=== PATIENT | female | born 1945 | race Hispanic/Latino ===

== ENCOUNTER 2016-08-24 11:02 | Day surgery (SDC) | payer MEDICARE ==
[2016-08-17 12:45] VITALS: BMI 32.9
[2016-08-24] MEDS ORDERED: Propofol 10 mg/ml Inj (20 ML) ONE (13:16)
[2016-08-24] MEDS ORDERED: Lidocaine 2% Inj (20ml) ONE (13:16)
[2016-08-24] MEDS ORDERED: Midazolam 2 MG/2 ML VIAL ONE (13:17)
[2016-08-24] MEDS ORDERED: Lactated Ringer's 1,000 ML IV SCH (13:51)
[2016-08-24 14:23] VITALS: RESP 18
[2016-08-24 14:39] VITALS: PULSE 70
[2016-08-24 15:14] VITALS: BP 113/60; TEMP 98.2; O2SAT 97
== END 2016-08-24 16:00 | disposition home or self-care (01) ==
LOC: ENDO 11:02
PROVIDERS: ATTEND Internal Medicine Gastroenterology
DX: K51.90 Ulcerative colitis, unspecified, without complications (principal); K62.1 Rectal polyp; K64.8 Other hemorrhoids; E11.9 Type 2 diabetes mellitus without complications
CPT/HCPCS: 45380; 45385; 82948; 88305; J2250; J2704; J3010; J7040; J7120

== ENCOUNTER 2016-09-29 16:43 | Emergency (ER) | payer MEDICARE ==
[2016-09-29 16:44] VITALS: BMI 32.9
[2016-09-29 17:32] VITALS: BP 134/71; PULSE 82; RESP 19; TEMP 99.1; O2SAT 96
--- NOTE | 2016-09-29 18:16 | ED PDOC ---
Arrival/HPI - General Chief Complaint: ENT Problem Time Seen by Provider: 09/29/16 17:55 Historian: Patient - History of Present Illness Narrative History of Present Illness (Text): 09/29/16 18:21 Patient with pmh of DM, CHF, gout and asthma, complains of R ear pain > 1 wk, sore throat, loss of voice and cough productive of green sputum for the past few days. Otherwise: (-) fever, (-) chills, (-) chest pain, (-) dyspnea, (-) hemoptysis, (-) upper back pain, (-) travel, (-) recent prolonged immobility. Past Medical History - Provider Review Nursing Documentation Reviewed: Yes - Infectious Disease Hx of Infectious Diseases: None - Reproductive Menopause: Yes - Cardiac Hx Pacemaker: No - Pulmonary Hx Asthma: Yes Hx Chronic Obstructive Pulmonary Disease (COPD): Yes Hx Emphysema: Yes Hx Sleep Apnea: Yes - Neurological Hx Paralysis: No - HEENT Hx Deafness: Yes (NERVE DEAFNESS- B/L EARS) - Renal Hx Kidney Stones: Yes Other/Comment: MULTIPLE CYSTS ON KIDNEYS - Endocrine/Metabolic Hx Diabetes Mellitus Type 2: Yes Other/Comment: DIABETIC RETINOPATHY, NEUROPATHY - Hematological/Oncological Hx Blood Transfusions: No Hx Blood Transfusion Reaction: No - Integumentary Other/Comment: SKIN CA - Musculoskeletal/Rheumatological Hx Musculoskeletal Disorders: Yes - Gastrointestinal Hx Colitis: Yes Hx Gastroesophageal Reflux: Yes - Genitourinary/Gynecological Other/Comment: SKIN CA - Psychiatric Hx Psychophysiologic Disorder: Yes Hx Anxiety: Yes Hx Depression: Yes Hx Emotional Abuse: No Hx Physical Abuse: No Hx Substance Use: No - Surgical History Hx Orthopedic Surgery: Yes (LEFT WRIST, RT SHOULDER) Other/Comment: SKIN BIOPSY - Anesthesia Hx Anesthesia: Yes Hx Anesthesia Reactions: No Hx Malignant Hyperthermia: No - Suicidal Assessment Feels Threatened In Home Enviroment: No Family/Social History - Physician Review Nursing Documentation Reviewed: Yes Family/Social History: No Known Family HX Smoking Status: Never Smoked Hx Alcohol Use: No Hx Substance Use: No Hx Substance Use Treatment: No Allergies/Home Meds Allergies/Adverse Reactions: Allergies bacitracin Allergy (Verified 09/29/16 17:32) REDNESS perfume Adverse Reaction (Verified 09/29/16 17:32) SHORTNESS OF BREATH Home Medications: Home Meds Medication Instructions Recorded Confirmed Albuterol HFA [Ventolin HFA 90 1 puff IH PRN PRN 02/06/12 09/29/16 mcg/actuation (8 g)] Esomeprazole Magnesium [Nexium] 40 mg PO QAM 02/06/12 09/29/16 Montelukast [Singulair] 10 mg PO HS 02/06/12 09/29/16 Tiotropium [Spiriva] 18 mcg IH QPM 02/06/12 09/29/16 Allopurinol [Zyloprim] 300 mg PO DAILY 06/01/16 09/29/16 Alprazolam [Xanax] 0.5 mg PO DAILY 06/01/16 09/29/16 Budesonide/Formoterol Fumarate 2 aer IH BID 06/01/16 09/29/16 [Symbicort 160-4.5 Mcg Inhaler] Ezetimibe [Zetia] 10 mg PO DAILY 06/01/16 09/29/16 Folic Acid 1 mg PO DAILY 06/01/16 09/29/16 Furosemide [Lasix] 20 mg PO DAILY 06/01/16 09/29/16 Gabapentin [Neurontin] 300 mg PO QID 06/01/16 09/29/16 Glipizide [Glipizide ER] 2.5 mg PO DAILY 06/01/16 09/29/16 Mesalamine [Pentasa] 2 tab PO QID 06/01/16 09/29/16 Methotrexate 12.5 mg PO QWK 06/01/16 09/29/16 Paroxetine HCl [Paxil] 20 mg PO BID 06/01/16 09/29/16 Potassium 10 20 meq PO BID 06/01/16 09/29/16 Quinapril [Accupril] 10 mg PO DAILY 06/01/16 09/29/16 buPROPion XL [Wellbutrin XL] 300 mg PO DAILY 06/01/16 09/29/16 Ergocalciferol (Vitamin D2) 50,000 unit PO QWK 08/17/16 09/29/16 [Vitamin D2] Review of Systems - Review of Systems Constitutional: Normal. absent: Fatigue, Weight Change, Fevers ENT: Normal, Hearing Changes, Sore Throat. absent: Rhinorrhea, Sinus Congestion Respiratory: Normal, Cough. absent: SOB, Sputum, Wheezing Cardiovascular: Normal. absent: Chest Pain, Palpitations, Edema Musculoskeletal: Normal. absent: Arthralgias, Back Pain, Neck Pain Skin: Normal. absent: Rash, Pruritis, Skin Lesions Physical Exam - Physical Exam Narrative Physical Exam (Text): 09/29/16 18:26 GENERAL APPEARANCE: Patient is awake, alert, oriented x 3, in no acute distress. SKIN: Warm, dry; (-) cyanosis. EYES: (-) conjunctival pallor. ENMT: Mucous membranes moist. Airway patent: (-) stridor. Ears: canals normal with (-) erythema, (-) d/c, TMs wnl. Pharynx: (-) swelling, (-) erythema, (-) exudate. NECK: (-) tenderness, (-) stiffness, (-) lymphadenopathy. CHEST AND RESPIRATORY: (-) rhonchi, (-) rales, (-) wheezes, (-) pleural rub; breath sounds equal bilaterally. HEART AND CARDIOVASCULAR: (-) irregularity; (-) murmur, (-) gallop. ABDOMEN AND GI: Soft; (-) tenderness. EXTREMITIES: (-) deformity; (-) edema. NEURO AND PSYCH: Mental status as above. Cranial nerves grossly intact; strength symmetric. Vital Signs Temp Pulse Resp BP Pulse Ox 09/29/16 17:27 99.1 F 82 19 134/71 96 Medical Decision Making ED Course and Treatment: 09/29/16 18:27 Patient with pmh of DM, CHF, gout and asthma, complains of R ear pain > 1 wk, sore throat, loss of voice and cough productive of green sputum for the past few days. Based on history and exam, likely viral illness, consider laryngitis and bronchitis. Rx for zpak and tobramycin eye drops sent to pt's pharmacy. Advised to drink plenty of fluids, rest her voice. Pt states that she has a f/u with her ENT doctor in 2 days for re-evaluation. Also instructed to follow up with primary care physician in 1-2 days without fail. Advised to take medication as prescribed. Return to the emergency room at any time for any new or worsening symptoms. Patient states she fully agrees with and understands discharge instructions. States that she agrees with the plan and disposition. Verbalized and repeated discharge instructions and plan. I have given the patient opportunity to ask any additional questions. - PA / ABATTOIR MANAGER / Resident Statement MD/DO has reviewed & agrees with the documentation as recorded. Disposition/Present on Arrival - Present on Arrival Any Indicators Present on Arrival: No History of DVT/PE: No History of Uncontrolled Diabetes: No Urinary Catheter: No History of Decub. Ulcer: No History Surgical Site Infection Following: None - Disposition Have Diagnosis and Disposition been Completed?: Yes Diagnosis: Laryngitis, Bronchitis Disposition: HOME/ ROUTINE Disposition Time: 18:13 Patient Plan: Discharge Patient Problems: Current Active Problems Problem Status Onset Laryngitis Acute Bronchitis Acute Condition: GOOD Discharge Instructions (ExitCare): Laryngitis (ED), Acute Bronchitis (ED) Print Language: PASHTO Additional Instructions: Thank you for letting us take care of you today. You were treated for laryngitis , bronchitis. The emergency medical care you received today was directed at your acute symptoms. If you were prescribed any medication, please fill it and take as directed. It may take several days for your symptoms to resolve. Return to the Emergency Department if your symptoms worsen, do not improve, or if you have any other problems. Please contact your primary care doctor and your ENT doctor in 2 days for re- evaluation and follow up. Bring any paperwork you were given at discharge with you along with any medications you are taking to your follow up visit. Our treatment cannot replace ongoing medical care by a primary care provider (PCP) outside of the emergency department. Thank you for allowing the [facility] team to be part of your care today. Prescriptions: Azithromycin [Z-Raulito] 250 mg PO DAILY #6 tab Tobramycin 0.3% [Tobrex 0.3% Ophth Soln] 5 drop OS QID #1 bottle Referrals: Aureliano Johnson MD [Primary Care Provider] - Follow up with primary
== END 2016-09-29 18:20 | disposition home or self-care (01) ==
LOC: ED 16:43
DX: J04.0 Acute laryngitis (principal); J40 Bronchitis, not specified as acute or chronic; E11.9 Type 2 diabetes mellitus without complications

== ENCOUNTER 2016-12-16 23:28 | Inpatient (IN) | payer MEDICARE ==
--- NOTE | 2016-12-16 23:41 | EDPD ---
HPI Stroke - General Time Seen by Provider: 12/16/16 23:35 Historian: Patient, Family (Sister) - History of Present Illness Narrative History of Present Illness (Free Text): 12/16/16 23:36 Lorelei Patton is a 71 year old female, whose past medical history includes CVA, hypertension, Type 2 diabetes, COPD, sleep apnea, and diabetic neuropathy, who presents to the ED accompanied by sister complaining of weakness and confusion. Sister states patient called her tonight and noted patient was confused with expressive aphasia at times. Sister also reports patient has a right facial droop. Patient reports she has been feeling confused with associated weakness for the past couple of days but sister notes patient lives alone. Patient is alert and oriented to person and place. Patient denies any chest pain, shortness of breath, dizziness, nausea, vomiting, back pain, neck pain, or any other complaints. Date:: 12/16/16 Time: 23:36 Onset:: Days Timing: Currently Symptomatic Context: Home Associated Symptoms: Dysphagia (Expressive aphasia) Exacerbated by: Nothing Relieved by: Nothing - Location Location: Mental Status, Speech Locate Right: Face rTPA Inclusion/Exclusion - Refusal of Treatment Patient Refused Treatment: No - Inclusion Criteria for Altepase Patient is 18 years or Older: Yes The Clinical Diagnosis of Ischemic Stroke That is Causing a Potentially Disabling Neurological Deficit: Yes Time of Onset is Well Established to be Less Than 270 Minute Before Treatment Would Begin: No Risk/Benefit Discussed With Patient/Family Member Present: Yes - Exclusion Criteria for Altepase Uncontrolled Hypertension at Time of Treatment (Systolic BP above 185 or Diastolic BP above 110 mmHg): No Active Internal Bleeding: No Known Bleeding Diathesis Including but Not Limited to: Platelets Below 100,000/ mm,PTT Above 40 sec After Heparin Use, Current Use of Oral Anitcoagulant With INR Greater Than 1.7 or PT Greater Than 15 secs: No Evidence of an Intracranial Hemorrhage: No Evidence of Major Acute Infarct With Signs Greater Than 1/3 MCA Territory: No Suspicion of Subarachnoid Hemorrhage on Pretreatment Evaluation Even if CT Head Negative For Hemorrhage: No - Warning to TPA With Conditions Following Conditions Weighed Against Anticipated Benefit: No Past Medical History - Provider Review Nursing Documentation Reviewed: Yes - Infectious Disease Hx of Infectious Diseases: None - Cardiac Hx Pacemaker: No - Pulmonary Hx Chronic Obstructive Pulmonary Disease (COPD): Yes Hx Pneumonia: Yes - Neurological Hx Paralysis: No - HEENT Hx Deafness: Yes (NERVE DEAFNESS- B/L EARS) - Renal Hx Kidney Stones: Yes Other/Comment: MULTIPLE CYSTS ON KIDNEYS - Endocrine/Metabolic Hx Diabetes Mellitus Type 2: Yes Other/Comment: DIABETIC RETINOPATHY, NEUROPATHY - Hematological/Oncological Hx Blood Transfusions: No Hx Blood Transfusion Reaction: No - Integumentary Other/Comment: SKIN CA - Musculoskeletal/Rheumatological Hx Musculoskeletal Disorders: Yes - Gastrointestinal Hx Gastroesophageal Reflux: Yes - Genitourinary/Gynecological Other/Comment: SKIN CA - Psychiatric Hx Psychophysiologic Disorder: Yes Hx Anxiety: Yes Hx Depression: Yes Hx Emotional Abuse: No Hx Physical Abuse: No Hx Substance Use: No - Surgical History Hx Orthopedic Surgery: Yes (LEFT WRIST, RT SHOULDER) Other/Comment: SKIN BIOPSY - Anesthesia Hx Anesthesia: Yes Hx Anesthesia Reactions: No Hx Malignant Hyperthermia: No - Suicidal Assessment Feels Threatened In Home Enviroment: No Family/Social History - Family/Social History Family History: Non-Contributory - Review Nursing documentation reviewed.: Yes Allergies/Home Meds Allergies/Adverse Reactions: Allergies bacitracin Allergy (Verified 12/16/16 23:42) REDNESS perfume Adverse Reaction (Verified 12/16/16 23:42) SHORTNESS OF BREATH Home Medications: Home Meds Medication Instructions Recorded Confirmed Albuterol HFA [Ventolin HFA 90 1 puff IH PRN PRN 02/06/12 09/29/16 mcg/actuation (8 g)] Esomeprazole Magnesium [Nexium] 40 mg PO QAM 02/06/12 09/29/16 Montelukast [Singulair] 10 mg PO HS 02/06/12 09/29/16 Tiotropium [Spiriva] 18 mcg IH QPM 02/06/12 09/29/16 Allopurinol [Zyloprim] 300 mg PO DAILY 06/01/16 09/29/16 Alprazolam [Xanax] 0.5 mg PO DAILY 06/01/16 09/29/16 Budesonide/Formoterol Fumarate 2 aer IH BID 06/01/16 09/29/16 [Symbicort 160-4.5 Mcg Inhaler] Ezetimibe [Zetia] 10 mg PO DAILY 06/01/16 09/29/16 Folic Acid 1 mg PO DAILY 06/01/16 09/29/16 Furosemide [Lasix] 20 mg PO DAILY 06/01/16 09/29/16 Gabapentin [Neurontin] 300 mg PO QID 06/01/16 09/29/16 Glipizide [Glipizide ER] 2.5 mg PO DAILY 06/01/16 09/29/16 Mesalamine [Pentasa] 2 tab PO QID 06/01/16 09/29/16 Methotrexate 12.5 mg PO QWK 06/01/16 09/29/16 Paroxetine HCl [Paxil] 20 mg PO BID 06/01/16 09/29/16 Potassium 10 20 meq PO BID 06/01/16 09/29/16 Quinapril [Accupril] 10 mg PO DAILY 06/01/16 09/29/16 buPROPion XL [Wellbutrin XL] 300 mg PO DAILY 06/01/16 09/29/16 Ergocalciferol (Vitamin D2) 50,000 unit PO QWK 08/17/16 09/29/16 [Vitamin D2] Review of Systems - Physician Review All systems were reviewed & negative as marked: Yes - Review of Systems Constitutional: Other (+weakness). absent: Fevers Eyes: Normal ENT: Normal Respiratory: Normal. absent: SOB, Cough Cardiovascular: Normal. absent: Chest Pain Gastrointestinal: Normal. absent: Abdominal Pain, Diarrhea, Nausea, Vomiting Genitourinary Female: Normal. absent: Dysuria, Frequency, Hematuria, Urine Output Changes Musculoskeletal: Normal. absent: Back Pain, Neck Pain Skin: Normal. absent: Rash Neurological: Speech Changes (+expressive aphasia), Facial Droop (+right facial droop), Other (+confused) Endocrine: Normal Hemo/Lymphatic: Normal Psychiatric: Normal ED Stroke Physical Exam Vital Signs Reviewed: Yes Vital Signs Temp Pulse Resp BP Pulse Ox 12/16/16 23:37 98.5 F 86 18 136/74 97 Temperature: Afebrile Blood Pressure: Normal Pulse: Regular Respiratory Rate: Normal Appearance: Positive for: Well-Appearing, Non-Toxic, Comfortable Pain Distress: None Mental Status: Positive for: other (Alert and Oriented x 2 (person and place)) - Systems Exam Head: Present: Atraumatic, Normocephalic Pupils: Present: PERRL Extroacular Muscles: Present: EOMI Conjunctiva: Present: Normal Mouth: Present: Moist Mucous Membranes Neck: Present: Normal Range of Motion Respiratory/Chest: Present: Clear to Auscultation, Good Air Exchange. No: Respiratory Distress, Accessory Muscle Use Cardiovascular: Present: Regular Rate and Rhythm, Normal S1, S2. No: Murmurs Abdomen: Present: Normal Bowel Sounds. No: Tenderness, Distention, Peritoneal Signs Upper Extremity: Present: Normal Inspection, Normal ROM, NORMAL PULSES, Neurovascularly Intact, Capillary Refill < 2s. No: Cyanosis, Edema Lower Extremity: Present: Normal Inspection, NORMAL PULSES, Normal ROM, Neurovascularly Intact. No: Edema Neurologic: Present: GCS=15, Motor Func Grossly Intact, Normal Sensory Function , Facial Droop (Right facial droop). No: Speech Normal (Intermittent episodes of expressive aphasia), Pronator Drift Skin: Present: Warm, Dry, Normal Color. No: Rashes Psychiatric: Present: Alert. No: Oriented x 3 (Oriented x 2 (person and place)) Medical Decision Making ED Course and Treatment: 12/16/16 23:36 Impression: 71 year old female c/o weakness, confusion, and right facial droop. Differential Diagnosis included but are not limited to: CVA vs. TIA Plan: -- CT Head w/o contrast -- EKG -- CXR -- Labs, troponin, lipid panel, blood type and screen -- Reassess and disposition Prior Visits: Notes and results from previous visits were reviewed. On 09/29/2016, pt was seen in the for sore throat and productive cough. Pt was discharged home. Progress Notes: 12/16/16 23:36 Pt seen on arrival to ED. Code Stroke called. Pt taken CT scan. 12/16/16 23:[address] Abdoul Caldwell, who is aware and agrees with plan. Pt is not a candidate for due to onset of symptoms being up to 2 days prior 12/17/16 00:09 Reviewed radiology, CXR shows no acute processes. CT Head shows: Brain: Ventricles are normal in size. There is no midline shift. There is mild prominence of sulci and gyri.. There is decreased attenuation in periventricular white matter left greater than right increased since the prior study. There is been interval increase in conspicuity of a right basal ganglia infarct. There is an old left frontal white matter infarct. There is now an age indeterminate left basal ganglia infarct. There are no focal masses. Streak artifact limits evaluation of brainstem and posterior fossa. There are no focal hemorrhages. Carbone-white differentiation is visualized. Ventricles: See above Bones: Cranial vault is intact. There is extensive hyperostosis. Soft tissues: unremarkable Sinuses: There is no acute sinusitis. Ears and mastoids: Middle ears and mastoids are unremarkable. Orbits: Orbital contents are unremarkable. Dental: Streak artifact from dental fillings degrades image quality.There is streak artifact from a hearing aids. IMPRESSION: Small vessel disease; old right basal ganglia infarct; old left frontal white matter infarct; age indeterminate left basal ganglia infarct; no bleed 12/17/16 00:[address] Stock, who is aware and agrees with plan. Accepts pt in to his service. Pt will be admitted to Telemetry for CVA. Requests Dr. Caldwell on consult. 12/17/16 00:54 Reviewed EKG, NSR at 82 bpm. LAD. Inferior infarct. - Critical Care Critical Care Minutes: 30 minutes - Lab Interpretations I have reviewed the lab results: Yes - RAD Interpretation Security Systems Integrator: ED Physician, Radiologist - Scribe Statement The provider has reviewed the documentation as recorded by the Scribe Randee Mott All medical record entries made by the Scribe were at my direction and personally dictated by me. I have reviewed the chart and agree that the record accurately reflects my personal performance of the history, physical exam, medical decision making, and the department course for this patient. I have also personally directed, reviewed, and agree with the discharge instructions and disposition. NIHSS Scale ([place]) Time Performed: 23:36 - How Severe is the [place]oke Baseline Level of Consciousness: 0=Alert LOC to Questions: 0=Both comments correct LOC to commands: 0=Obeys both correctly Best Gaze: 0=Normal Visual: 0=No visual loss Facial: 2=Partial (lower face paralysis) Motor Arm - Left: 0=No drift Motor Arm - Right: 0=No drift Motor Leg - Left: 0=No drift Motor Leg - Right: 0=No drift Limb Ataxia: 0=Absent Sensory: 0=Normal Best Language: 1=Mild to moderate aphasia Dysarthia: 0=Normal articulation Extinction & Inattention (Neglect): 0=Normal, no object Score: 3 Risk Level: Minor Stroke Risk Disposition/Present on Arrival - Present on Arrival Any Indicators Present on Arrival: No History of DVT/PE: No History of Uncontrolled Diabetes: No Urinary Catheter: No History of Decub. Ulcer: No History Surgical Site Infection Following: None - Disposition Have Diagnosis and Disposition been Completed?: Yes Diagnosis: CVA (cerebral vascular accident) Disposition: HOSPITALIZED Disposition Time: 00:29 Patient Plan: Admission Patient Problems: Current Active Problems Problem Status Onset CVA (cerebral vascular accident) Acute Condition: STABLE
--- NOTE | 2016-12-17 00:07 | CT ---
EXAM: CT Head Without Intravenous Contrast EXAM DATE/TIME: 12/16/2016 11:47 PM CLINICAL HISTORY: 71 years old, female; Signs and symptoms; Walking, difficulty; Additional info: Code stroke TECHNIQUE: Axial computed tomography images of the head/brain without intravenous contrast. All CT scans at this facility use one or more dose reduction techniques, viz.: automated exposure control; ma/kV adjustment per patient size (including targeted exams where dose is matched to indication; i.e. head); or iterative reconstruction technique. COMPARISON: CT - HEAD W/O CONTRAST 06/01/2016 12:30:01 PM FINDINGS: Brain: Ventricles are normal in size. There is no midline shift. There is mild prominence of sulci and gyri.. There is decreased attenuation in periventricular white matter left greater than right increased since the prior study. There is been interval increase in conspicuity of a right basal ganglia infarct. There is an old left frontal white matter infarct. There is now an age indeterminate left basal ganglia infarct. There are no focal masses. Streak artifact limits evaluation of brainstem and posterior fossa. There are no focal hemorrhages. Carbone-white differentiation is visualized. Ventricles: See above Bones: Cranial vault is intact. There is extensive hyperostosis. Soft tissues: unremarkable Sinuses: There is no acute sinusitis. Ears and mastoids: Middle ears and mastoids are unremarkable. Orbits: Orbital contents are unremarkable. Dental: Streak artifact from dental fillings degrades image quality.There is streak artifact from a hearing aids. IMPRESSION: Small vessel disease; old right basal ganglia infarct; old left frontal white matter infarct; age indeterminate left basal ganglia infarct; no bleed
[2016-12-17 00:27] LABS: BASO # 0.03 K/mm3 (0.0-2.0); BASO % 0.3 % (0.0-3.0); EOS # 0.3 (0.0-0.7); EOS % 3.2 % (1.5-5.0); GRAN # 4.72 (1.4-6.5); GRAN % 54.3 % (50.0-68.0); HEMATOCRIT 40.1 % (36.0-48.0); LYMPH # 2.9 (1.2-3.4); LYMPH % 33.2 % (22.0-35.0); MEAN CELL VOLUME 93.9 fl (80.0-105.0); MEAN CORPUSCULAR HEMOGLOBIN 31.9 pg (25.0-35.0); MEAN CORPUSCULAR HGB CONC 33.9 g/dl (31.0-37.0); MEAN PLATELET VOLUME 9.5 fl (7.0-11.0); MONO # 0.8 (0.1-0.6); RED CELL DISTRIBUTION WIDTH 13.9 % (11.5-14.5); WHITE BLOOD COUNT 8.7 10^3/ul (4.5-11.0)
[2016-12-17 00:29] LABS: ALB/GLOB RATIO 1.6 (1.1-1.8); ALKALINE PHOSPHATASE 86 U/L (38-126); ALT/SGPT 25 U/L (7-56); AST/SGOT 20 U/L (14-36); BILIRUBIN,TOTAL 0.5 mg/dL (0.2-1.3); BLOOD UREA NITROGEN 22 mg/dL (7-21); CALCIUM 9.6 mg/dL (8.4-10.5); CARBON DIOXIDE 27 mmol/L (21-33); CHLORIDE 104 mmol/L (98-107); CHOLESTEROL 229 mg/dL (130-200); GFR AFRICAN-AMERICAN > 60; GLUCOSE,RANDOM 102 mg/dL (70-110); POTASSIUM 3.6 mmol/L (3.6-5.0); SODIUM 144 mmol/L (132-148); TOTAL PROTEIN 7.4 g/dL (5.8-8.3)
[2016-12-17 00:31] LABS: PARTIAL THROMBOPLASTIN TIME 25.5 Seconds (23.7-30.8)
[2016-12-17 00:51] LABS: TROPONIN I < 0.01 ng/mL
[2016-12-17 03:44] VITALS: BMI 48.6
[2016-12-17] MEDS: buPROPion 300 mg/24 Hours XL Tab PO SCH (09:20)
[2016-12-17] MEDS: Mesalamine ER Cap 500 MG PO SCH ×4 (09:20→22:07)
[2016-12-17] MEDS: Non Formulary Medication (Budesonide/Formoterol Fumarate [Symbicort 160-4.5 Mcg Inhaler] 2 IH SCH ×2 (09:20→19:02)
--- NOTE | 2016-12-17 09:55 | CP.PCM.CON ---
<Oumou Hamlin - Last Filed: 12/17/16 13:28> History of Present Illness - History of Present Illness History of Present Illness: Neurology Consult Note for Ailyn Ca PGY2 This is a 71Y F with PMH HTN, DM, CVA, and COPD who came to ED for weakness and confusion x 3 days. Patient reports she lives alone, but was brought in by her sister. She called her sister prior to admission and the sister noticed she was confused. As per patient she reports also feeling weak and confused the past few days. The patient also noticed her R lower lip drooping as well. She denies any headaches, vision changes, falls, or trauma. She did not have these symptoms prior to her stroke. Patient denies CP, SOB, dizziness, n/v/d, numbness /tingling, fever or chills. Head CT did not showed old infarcts, but no new acute pathology. PMH:HTN, DM with peripheral nephropathy, CVA, COPD PSH: Denies Home meds: As per MAR All: Bacitracin, Perfume SH: Former smoker, denies alcohol or drug use Review of Systems - Constitutional Constitutional: absent: Chills, Fever, Headache - EENT Eyes: absent: Change in Vision Nose/Mouth/Throat: absent: Dysphagia, Facial Pain - Cardiovascular Cardiovascular: absent: Chest Pain, Pedal Edema, Syncope - Respiratory Respiratory: absent: Cough, Dyspnea, Hemoptysis, Wheezing - Gastrointestinal Gastrointestinal: absent: Abdominal Pain, Change in Bowel Habits, Diarrhea, Nausea, Vomiting - Genitourinary Genitourinary: absent: Change in Urinary Stream, Dysuria, Hematuria, Pyuria - Musculoskeletal Musculoskeletal: absent: Arthralgias, Myalgias, Neck Pain - Integumentary Integumentary: absent: Change in Hair, Change in Nails - Neurological Neurological: Abnormal Speech, Confusion, Other (R facial droop). absent: Abnormal Gait, Abnormal Hearing, Abnormal Movements, Behavioral Changes, Dizziness, Numbness, Headaches, Sensory Deficit - Psychiatric Psychiatric: absent: Anxiety, Depression Past Patient History - Infectious Disease Hx of Infectious Diseases: None - Past Social History Smoking Status: Former Smoker - CARDIAC Hx Pacemaker: No - PULMONARY Hx Chronic Obstructive Pulmonary Disease (COPD): Yes Hx Pneumonia: Yes - NEUROLOGICAL Hx Paralysis: No - HEENT Hx Deafness: Yes (NERVE DEAFNESS- B/L EARS) - RENAL Hx Kidney Stones: Yes Other/Comment: MULTIPLE CYSTS ON KIDNEYS - ENDOCRINE/METABOLIC Hx Diabetes Mellitus Type 2: Yes Other/Comment: DIABETIC RETINOPATHY, NEUROPATHY - HEMATOLOGICAL/ONCOLOGICAL Hx Blood Transfusions: No Hx Blood Transfusion Reaction: No - INTEGUMENTARY Other/Comment: SKIN CA - MUSCULOSKELETAL/RHEUMATOLOGICAL Hx Falls: No - GASTROINTESTINAL Hx Gastroesophageal Reflux: Yes - GENITOURINARY/GYNECOLOGICAL Other/Comment: SKIN CA - PSYCHIATRIC Hx Psychophysiologic Disorder: Yes Hx Anxiety: Yes Hx Depression: Yes Hx Emotional Abuse: No Hx Physical Abuse: No Hx Substance Use: No - SURGICAL HISTORY Hx Orthopedic Surgery: Yes (LEFT WRIST, RT SHOULDER) Other/Comment: SKIN BIOPSY - ANESTHESIA Hx Anesthesia: Yes Hx Anesthesia Reactions: No Hx Malignant Hyperthermia: No Meds Allergies/Adverse Reactions: Allergies Allergy/AdvReac Type Severity Reaction Status Date / Time bacitracin Allergy REDNESS Verified 12/16/16 23:42 perfume AdvReac SHORTNESS Verified 12/16/16 23:42 OF BREATH - Medications Medications: Current Medications Allopurinol (Zyloprim) 300 mg PO DAILY [facility] Last Admin: 12/17/16 09:20 Dose: 300 mg Alprazolam (Xanax) 0.5 mg PO DAILY PRN; Protocol PRN Reason: Anxiety Stop: 12/24/16 10:01 Aspirin (Ecotrin) 81 mg PO DAILY [facility] Last Admin: 12/17/16 09:20 Dose: 81 mg Bupropion HCl (Wellbutrin Xl) 300 mg PO DAILY [facility] Last Admin: 12/17/16 09:20 Dose: 300 mg Ezetimibe (Zetia) 10 mg PO DAILY [facility] Last Admin: 12/17/16 09:20 Dose: 10 mg Folic Acid (Folic Acid) 1 mg PO DAILY [facility] Last Admin: 12/17/16 09:20 Dose: 1 mg Gabapentin (Neurontin) 300 mg PO QID [facility] PRN Reason: Protocol Last Admin: 12/17/16 09:20 Dose: 300 mg Insulin Human Regular (Humulin R Low) 0 units SC [facility] PRN Reason: Protocol Mesalamine (Pentasa) 500 mg PO QID [facility] Last Admin: 12/17/16 09:20 Dose: 500 mg Methotrexate (Methotrexate) 12.5 mg PO QWK [facility] Montelukast Sodium (Singulair) 10 mg PO HS [facility] Non-Formulary Medication (Budesonide/Formoterol Fumarate [Symbicort 160-4.5 Mcg Inhaler]) 2 aer IH BID [facility] Last Admin: 12/17/16 09:20 Dose: Not Given Paroxetine HCl (Paxil) 20 mg PO BID [facility] Last Admin: 12/17/16 09:20 Dose: 20 mg Tiotropium Sweetser (Spiriva) 18 mcg IH QPM [facility] Tobramycin Sulfate (Tobrex 0.3% Oph Soln) 5 drop OS QID [facility] Physical Exam - Constitutional Appears: Well, No Acute Distress - Head Exam Head Exam: ATRAUMATIC, NORMAL INSPECTION, NORMOCEPHALIC - Eye Exam Eye Exam: Normal appearance, PERRL Pupil Exam: NORMAL ACCOMODATION, PERRL - ENT Exam ENT Exam: Mucous Membranes Moist - Neck Exam Neck exam: Positive for: Normal Inspection - Respiratory Exam Respiratory Exam: Clear to Auscultation Bilateral, NORMAL BREATHING PATTERN. absent: Rales, Rhonchi, Wheezes - Cardiovascular Exam Cardiovascular Exam: REGULAR RHYTHM, +S1, +S2. absent: Gallop, Rubs, Systolic Murmur - GI/Abdominal Exam GI & Abdominal Exam: Normal Bowel Sounds, Soft. absent: Guarding, Rebound, Tenderness - Extremities Exam Extremities exam: Positive for: normal inspection. Negative for: calf tenderness, pedal edema - Neurological Exam Neurological exam: Alert, CN II-XII Intact, Oriented x3 - Expanded Neurological Exam Expanded Neurological exam: Expressive Aphasia Patient oriented to: person, place, time Speech: Expressive Aphasia Cranial nerves: EOM's Intact: Normal, Facial Palsey w/Forehead Movement: Normal , Facial Palsey w/o Forehead Movement: Abnormal Right, Facial Sensation: Normal , Tongue Deviation: Normal Upper motor neuron: Sascha Neglect: Normal, Pronator Drift: Normal, Sensory Extinction: Normal Sensory exam: Lower Extremity 2 Point Discrimination: Normal, Lower Extremity Light Touch: Normal, Upper Extremity 2 Point Discrimination: Normal, Upper Extremity Light Touch: Normal Neuro motor strength exam: Left Upper Extremity: 5, Right Upper Extremity: 5, Left Lower Extremity: 5, Right Lower Extremity: 5 Coma Scale Eye Opening: SPONTANEOUS Coma Scale Motor Response: OBEYS COMMANDS Coma Scale Verbal: Oriented Coma Scale Total: 15 - Skin Skin Exam: Dry, Normal Color, Warm Results - Vital Signs Recent Vital Signs: Last Vital Signs Temp 98.8 F 12/17/16 03:13 Pulse 73 12/17/16 03:13 Resp 20 12/17/16 03:13 BP 112/60 12/17/16 03:13 Pulse Ox 99 12/17/16 01:31 - Labs Result Diagrams: 12/17/16 00:00 12/17/16 00:00 Labs: Laboratory Results - last 24 hr 12/17/16 12/17/16 01:50 07:29 POC Glucose (mg/dL) 116 H Blood Type Confirm O POSITIVE Assessment & Plan - Assessment and Plan (Free Text) Assessment: This is a 71Y F with PMH HTN, DM, CVA, and COPD who came to ED for weakness and confusion x 3 days. Patient found to have L basal ganglia stroke secondary to diffuse atherosclerosis from uncontrolled risk factors causing aphasia. Plan: - Maintain SBP 130-140s - Follow up Carotid doppler - Start Aggrenox - Will check HgbA1c - Atorvastatin 80mg daily - PT/OT - Speech/Swallow eval Case seen, discussed and reviewed with attending, Dr. Caldwell. Ailyn Hamlin PGY2 - Date & Time Date: 12/17/16 Time: 10:32 <Lorne Caldwell - Last Filed: 12/17/16 13:40> Meds - Medications Medications: Current Medications Allopurinol (Zyloprim) 300 mg PO DAILY [facility] Last Admin: 12/17/16 09:20 Dose: 300 mg Alprazolam (Xanax) 0.5 mg PO DAILY PRN; Protocol PRN Reason: Anxiety Stop: 12/24/16 10:01 Atorvastatin Calcium (Lipitor) 80 mg PO DIN [facility] Bupropion HCl (Wellbutrin Xl) 300 mg PO DAILY [facility] Last Admin: 12/17/16 09:20 Dose: 300 mg Dipyridamole/Aspirin (Aggrenox 25-200 Mg) 1 ea PO BID [facility] Ezetimibe (Zetia) 10 mg PO DAILY [facility] Last Admin: 12/17/16 09:20 Dose: 10 mg Folic Acid (Folic Acid) 1 mg PO DAILY [facility] Last Admin: 12/17/16 09:20 Dose: 1 mg Gabapentin (Neurontin) 300 mg PO QID [facility] PRN Reason: Protocol Last Admin: 12/17/16 09:20 Dose: 300 mg Insulin Human Regular (Humulin R Low) 0 units SC ACHS [facility] PRN Reason: Protocol Last Admin: 12/17/16 11:42 Dose: Not Given Mesalamine (Pentasa) 500 mg PO QID [facility] Last Admin: 12/17/16 09:20 Dose: 500 mg Methotrexate (Methotrexate) 12.5 mg PO QWK [facility] Last Admin: 12/17/16 10:42 Dose: 12.5 mg Montelukast Sodium (Singulair) 10 mg PO HS [facility] Non-Formulary Medication (Budesonide/Formoterol Fumarate [Symbicort 160-4.5 Mcg Inhaler]) 2 aer IH BID [facility] Last Admin: 12/17/16 09:20 Dose: Not Given Paroxetine HCl (Paxil) 20 mg PO BID [facility] Last Admin: 12/17/16 09:20 Dose: 20 mg Tiotropium Sweetser (Spiriva) 18 mcg IH QPM [facility] Tobramycin Sulfate (Tobrex 0.3% [facility]) 5 drop OS QID [facility] Last Admin: 12/17/16 10:41 Dose: 5 drop Results - Vital Signs Recent Vital Signs: Last Vital Signs Temp 98.8 F 12/17/16 03:13 Pulse 74 12/17/16 10:00 Resp 20 12/17/16 03:13 BP 112/60 12/17/16 03:13 Pulse Ox 99 12/17/16 01:31 - Labs Result Diagrams: 12/17/16 00:00 12/17/16 00:00 Labs: Laboratory Results - last 24 hr 12/17/16 12/17/16 01:50 07:29 POC Glucose (mg/dL) 116 H Blood Type Confirm O POSITIVE Attending/Attestation - Attestation I have personally seen and examined this patient.: Yes I have fully participated in the care of the patient.: Yes I have reviewed all pertinent clinical information: Yes
[2016-12-17] MEDS: Tobramycin 0.3% OPHT SOLN OS SCH ×4 (10:41→22:08)
--- NOTE | 2016-12-17 10:44 | RAD ---
HISTORY: medical clearance COMPARISON: Comparison made with prior chest radiograph 06/01/2016 FINDINGS: LUNGS: Mild bibasilar atelectasis. . Suspect underlying mild chronic changes of COPD or emphysema. . PLEURA: No significant pleural effusion identified, no pneumothorax apparent. CARDIOVASCULAR: Normal. OSSEOUS STRUCTURES: . Degenerative changes both mild multilevel degenerative spondylosis of the thoracic spine. Degenerative changes both shoulder girdles. VISUALIZED UPPER ABDOMEN: Normal. OTHER FINDINGS: None. IMPRESSION: Mild bibasilar atelectasis. . Suspect underlying mild chronic changes of COPD or emphysema. .
--- NOTE | 2016-12-17 10:53 | CP.PCM.HP ---
<Marlene Carrera - Last Filed: 12/17/16 12:48> History of Present Illness - History of Present Illness History of Present Illness: PYG- [address] Stock 71 yo female with PMH of CVA, HTN, COPD, DMII, sleep apnea, diabetic neuropathy presents with weakness and confusion. Patient states she lives alones, brought in by sister states that patient started feeling confused with difficulty speaking and facial droop. Pateint state sthat it started a few days ago. She denies any previous episodes. Patient walks with a cane and denies any difficult walking. She denies any fever, chills, chest pain, sob, n/v/d/c. Patient is alert and oriented to person and place. Patient denies any trauma. PMH: CVA, HTN, COPD, DMII, sleep apnea, diabetic neuropathy PSH: denies social hx: denies smoking, etoh use, illicit drug allergy: bacitracin, perfume Present on Admission - Present on Admission Any Indicators Present on Admission: No Review of Systems - Constitutional Constitutional: Weakness. absent: Fever, Headache - EENT Eyes: absent: Blurred Vision, Change in Vision Nose/Mouth/Throat: absent: Nasal Congestion, Nasal Discharge, Sore Throat - Cardiovascular Cardiovascular: absent: Chest Pain, Dyspnea, Leg Edema, Syncope - Respiratory Respiratory: absent: Cough, Dyspnea - Gastrointestinal Gastrointestinal: absent: Abdominal Pain, Constipation, Diarrhea, Nausea, Vomiting - Genitourinary Genitourinary: absent: Difficulty Urinating, Dysuria, Hematuria - Musculoskeletal Musculoskeletal: absent: Joint Swelling, Muscle Weakness, Numbness - Integumentary Integumentary: absent: Pruritus, Skin Ulcer, Sores, Wounds - Neurological Neurological: Weakness. absent: Dizziness, Numbness, Headaches, Syncope - Hematologic/Lymphatic Hematologic: absent: Easy Bleeding, Easy Bruising Past Patient History - Infectious Disease Hx of Infectious Diseases: None - Past Social History Smoking Status: Former Smoker - CARDIAC Hx Pacemaker: No - PULMONARY Hx Chronic Obstructive Pulmonary Disease (COPD): Yes Hx Pneumonia: Yes - NEUROLOGICAL Hx Paralysis: No - HEENT Hx Deafness: Yes (NERVE DEAFNESS- B/L EARS) - RENAL Hx Kidney Stones: Yes Other/Comment: MULTIPLE CYSTS ON KIDNEYS - ENDOCRINE/METABOLIC Hx Diabetes Mellitus Type 2: Yes Other/Comment: DIABETIC RETINOPATHY, NEUROPATHY - HEMATOLOGICAL/ONCOLOGICAL Hx Blood Transfusions: No Hx Blood Transfusion Reaction: No - INTEGUMENTARY Other/Comment: SKIN CA - MUSCULOSKELETAL/RHEUMATOLOGICAL Hx Falls: No - GASTROINTESTINAL Hx Gastroesophageal Reflux: Yes - GENITOURINARY/GYNECOLOGICAL Other/Comment: SKIN CA - PSYCHIATRIC Hx Psychophysiologic Disorder: Yes Hx Anxiety: Yes Hx Depression: Yes Hx Emotional Abuse: No Hx Physical Abuse: No Hx Substance Use: No - SURGICAL HISTORY Hx Orthopedic Surgery: Yes (LEFT WRIST, RT SHOULDER) Other/Comment: SKIN BIOPSY - ANESTHESIA Hx Anesthesia: Yes Hx Anesthesia Reactions: No Hx Malignant Hyperthermia: No Meds Allergies/Adverse Reactions: Allergies Allergy/AdvReac Type Severity Reaction Status Date / Time bacitracin Allergy REDNESS Verified 12/16/16 23:42 perfume AdvReac SHORTNESS Verified 12/16/16 23:42 OF BREATH Physical Exam - Constitutional Appears: Well, No Acute Distress - Head Exam Head Exam: ATRAUMATIC, NORMAL INSPECTION, NORMOCEPHALIC - Eye Exam Eye Exam: EOMI, Normal appearance, PERRL - ENT Exam ENT Exam: Mucous Membranes Moist - Respiratory Exam Respiratory Exam: Clear to Auscultation Bilateral, NORMAL BREATHING PATTERN. absent: Rales, Rhonchi, Wheezes, Respiratory Distress - Cardiovascular Exam Cardiovascular Exam: REGULAR RHYTHM, +S1, +S2. absent: Tachycardia, Diastolic murmur, Systolic Murmur - GI/Abdominal Exam GI & Abdominal Exam: Normal Bowel Sounds, Soft. absent: Distended, Firm, Guarding, Tenderness - Extremities Exam Extremities exam: Positive for: normal inspection. Negative for: pedal edema, tenderness - Neurological Exam Neurological exam: Alert, CN II-XII Intact, Oriented x3 - Expanded Neurological Exam Expanded Neurological exam: Expressive Aphasia Patient oriented to: person, place Speech: Expressive Aphasia Cranial nerves: EOM's Intact: Normal, Facial Palsey w/Forehead Movement: Normal , Facial Palsey w/o Forehead Movement: Normal, Facial Sensation: Normal, Nystagmus: Normal, Tongue Deviation: Normal Upper motor neuron: Pronator Drift: Normal Neuro motor strength exam: Left Upper Extremity: 5, Right Upper Extremity: 5, Left Lower Extremity: 5, Right Lower Extremity: 5 Coma Scale Eye Opening: SPONTANEOUS Coma Scale Motor Response: OBEYS COMMANDS - Skin Skin Exam: Dry, Intact, Normal Color, Warm Results - Vital Signs Recent Vital Signs: Last Vital Signs Temp 98.8 F 12/17/16 03:13 Pulse 73 12/17/16 03:13 Resp 20 12/17/16 03:13 BP 112/60 12/17/16 03:13 Pulse Ox 99 12/17/16 01:31 - Labs Result Diagrams: 12/17/16 00:00 12/17/16 00:00 Labs: Laboratory Results - last 24 hr 12/17/16 12/17/16 01:50 07:29 POC Glucose (mg/dL) 116 H Blood Type Confirm O POSITIVE Assessment & Plan - Assessment and Plan (Free Text) Assessment: 71 yo female with PMH of CVA, HTN, COPD, DMII, sleep apnea, diabetic neuropathy presents with weakness and confusion, found to have right sided facial droop and expressive aphasia. Patient has history of CVA. CT head showed multiple old infarcts. Plan: 1. confusion with expressive aphasia - given asa 325 in ED - not candidate for tPA due to onset of symptoms - cont asa 81mg - start atrovastatin 20mg - neuro consult 2. hyperlipidemia - cholesterol elevated - currently on zetia - start atrovastatin 20mg 3. DM - f/u HgbA1C - ISS <Billy Stock S - Last Filed: 12/17/16 21:26> Results - Vital Signs Recent Vital Signs: Last Vital Signs Temp 98.8 F 12/17/16 03:13 Pulse 74 12/17/16 10:00 Resp 20 12/17/16 03:13 BP 112/60 12/17/16 03:13 Pulse Ox 99 12/17/16 01:31 - Labs Result Diagrams: 12/17/16 00:00 12/17/16 00:00 Labs: Laboratory Results - last 24 hr 12/17/16 12/17/16 12/17/16 01:50 07:29 15:58 POC Glucose (mg/dL) 116 H 167 H Blood Type Confirm O POSITIVE Assessment & Plan - Assessment and Plan (Free Text) Assessment: DM- 2 Plan: Pt seen and examined by me. Has CVA clinically. Note of medical sales representative reviewed. MRI was reviewed that confirmed acute CVA. Started on Atorvastatin for dyslipidemia. Labs reviewed and medications reviewed. Neuro consult. fss for DM-2.
[2016-12-17] MEDS: Insulin Reg-LOW-Coverage SC SCH ×3 (11:42→22:20)
--- NOTE | 2016-12-17 11:44 | CARD ---
APPROVED REPORT EKG Measurement Heart [id number] <Conclusion> Normal sinus rhythm Left axis deviation Inferior infarct, age undetermined NSSTW changes
--- NOTE | 2016-12-17 11:54 | MRI ---
PROCEDURE: MRI of the brain 12/17/2016 HISTORY: r/o cva COMPARISON: Comparison made with prior CT scan brain 12/16/2016 TECHNIQUE: Multiplanar, multisequence MR images of the brain were obtained without intravenous contrast enhancement. FINDINGS: HEMORRHAGE: No acute parenchymal, subarachnoid nor extra-axial hemorrhage. There is a tiny focus of dark T2 signal seen in the right aspect of the nathanael that could represent small microcalcification however very tiny faint deposit of hemosiderin or mineralization deposit not excluded. DWI: Moderate-sized acute infarcts seen in the left lateral basal ganglia extending superiorly into the left shields radiata and periventricular matter abutting the body left lateral ventricle. No other acute infarcts are identified. The. BRAIN PARENCHYMA: Seen to better advantage are moderate diffuse/confluent chronic white matter ischemic changes are seen extending peripherally into the deep and subcortical white matter both cerebral hemispheres. . Multiple more discrete chronic appearing lacunar type infarcts scattered about the deep and subcortical white matter as well as both basal nuclei and brainstem. Mild generalized volume loss. VENTRICLES: No obstructive hydrocephalus CRANIUM: Hyperostosis interna ORBITS: Grossly unremarkable. PARANASAL SINUSES/MASTOIDS: Changes of right mastoiditis. Some minor mucosal thickening noted in a few ethmoid air cells. Additionally, the maxillary antra appear somewhat diminutive in volume. VASCULAR SYSTEM: The visualized major vascular flow voids at skull base are patent OTHER FINDINGS: The abut the what IMPRESSION: Acute infarct left basal ganglia extending superiorly into the left shields radiata. Moderate chronic white matter basal nuclei and lesser brainstem ischemic changes. . Note these findings were discussed with 2S nurse Tonya approximately 11:45 a.m. with written down and read back verification
--- NOTE | 2016-12-17 18:17 | US ---
PROCEDURE: Bilateral carotid artery duplex ultrasound HISTORY: Carotid stenosis TIA PHYSICIAN(S): Chandra Maxwell MD. TECHNIQUE: Duplex sonography and color-flow Doppler were used to evaluate the carotid bifurcations and limited segments of the vertebral arteries bilaterally. FINDINGS: There is mild smooth hypoechoic plaque noted at the carotid bifurcations bilaterally. The peak systolic velocity in the proximal right internal carotid artery is 80 cm/sec. This corresponds to a 20 to 39% proximal right ICA stenosis. Normal systolic velocities are noted in the proximal right external carotid artery. There is antegrade flow in the right vertebral artery. The peak systolic velocity in the proximal left internal carotid artery is 65 cm/sec. This corresponds to a 20 to 39% proximal left ICA stenosis. Normal systolic velocities are noted in the proximal left external carotid artery. There is antegrade flow in the left vertebral artery. IMPRESSION: 1. Bilateral 20-39% proximal ICA stenoses. 2. Antegrade flow in both vertebral arteries.
[2016-12-17] MEDS: Tiotropium 18 mcg Cap For Inhalation IH SCH (19:02)
[2016-12-17] MEDS: Aspirin-Dipyridamole 200-25 mg ER Cap PO SCH (19:54)
--- NOTE | 2016-12-18 08:28 | CP.PCM.PN ---
<Marlene Carrera - Last Filed: 12/18/16 11:54> Subjective - Date & Time of Evaluation Date of Evaluation: 12/18/16 Time of Evaluation: : - Subjective Subjective: PGY-[address] Stock Patient seen and examined at bedside. No acute distress. Patient states she feels better. She denies chest pain, fever, chills, headache, dizziness, abd pain, d/c. Patient is tolerating dysphagia diet. Objective - Vital Signs/Intake and Output Vital Signs (last 24 hours): Temp Pulse Resp BP Pulse Ox 97.8 F 70 19 132/67 100 12/18/16 06:00 12/18/16 06:00 12/18/16 06:00 12/18/16 06:00 12/18/16 06:00 Intake and Output: 12/18/16 12/18/16 06:59 18:59 Intake Total 80 Output Total 0 Balance 80 - Medications Medications: Current Medications Allopurinol (Zyloprim) 300 mg PO DAILY [facility] Last Admin: 12/17/16 09:20 Dose: 300 mg Alprazolam (Xanax) 0.5 mg PO DAILY PRN; Protocol PRN Reason: Anxiety Stop: 12/24/16 10:01 Atorvastatin Calcium (Lipitor) 80 mg PO DIN [facility] Last Admin: 12/17/16 17:24 Dose: 80 mg Bupropion HCl (Wellbutrin Xl) 300 mg PO DAILY [facility] Last Admin: 12/17/16 09:20 Dose: 300 mg Dipyridamole/Aspirin (Aggrenox 25-200 Mg) 1 ea PO BID [facility] Last Admin: 12/17/16 19:54 Dose: 1 ea Ezetimibe (Zetia) 10 mg PO DAILY [facility] Last Admin: 12/17/16 09:20 Dose: 10 mg Folic Acid (Folic Acid) 1 mg PO DAILY [facility] Last Admin: 12/17/16 09:20 Dose: 1 mg Gabapentin (Neurontin) 300 mg PO QID [facility] PRN Reason: Protocol Last Admin: 12/17/16 22:07 Dose: 300 mg Insulin Human Regular (Humulin R Low) 0 units SC ACHS [facility] PRN Reason: Protocol Last Admin: 12/17/16 22:20 Dose: Not Given Mesalamine (Pentasa) 500 mg PO QID [facility] Last Admin: 12/17/16 22:07 Dose: 500 mg Methotrexate (Methotrexate) 12.5 mg PO QWK [facility] Last Admin: 12/17/16 10:42 Dose: 12.5 mg Montelukast Sodium (Singulair) 10 mg PO HS [facility] Last Admin: 12/17/16 22:07 Dose: 10 mg Non-Formulary Medication (Budesonide/Formoterol Fumarate [Symbicort 160-4.5 Mcg Inhaler]) 2 aer IH BID [facility] Last Admin: 12/17/16 19:02 Dose: Not Given Paroxetine HCl (Paxil) 20 mg PO BID [facility] Last Admin: 12/17/16 17:25 Dose: 20 mg Tiotropium [place] (Spiriva) 18 mcg IH QPM [facility] Last Admin: 12/17/16 19:02 Dose: 18 mcg Tobramycin Sulfate (Tobrex 0.3% [facility] Soln) 5 drop OS QID [facility] Last Admin: 12/17/16 22:08 Dose: 5 drop - Labs Labs: PT 10.8 Seconds (9.9-11.8) 12/17/16 00:00 INR 1.00 (0.93-1.08) 12/17/16 00:00 APTT 25.5 Seconds (23.7-30.8) 12/17/16 00:00 - Constitutional Appears: Well, No Acute Distress - Head Exam Head Exam: ATRAUMATIC, NORMAL INSPECTION, NORMOCEPHALIC - Eye Exam Eye Exam: EOMI, Normal appearance - ENT Exam ENT Exam: Mucous Membranes Moist - Respiratory Exam Respiratory Exam: Clear to Ausculation Bilateral, Rales, NORMAL BREATHING PATTERN. absent: Decreased Breath Sounds, Rhonchi, Wheezes, Respiratory Distress - Cardiovascular Exam Cardiovascular Exam: REGULAR RHYTHM, +S1, +S2. absent: Tachycardia, Murmur - GI/Abdominal Exam GI & Abdominal Exam: Soft, Normal Bowel Sounds. absent: Distended, Firm, Tenderness - Extremities Exam Extremities Exam: Normal Inspection. absent: Pedal Edema - Neurological Exam Neurological Exam: Alert, Awake, Oriented x3 Additional comments: slurred speech mildly improved, right sided facial droop - Skin Skin Exam: Dry, Intact, Normal Color, Warm Assessment and Plan - Assessment and Plan (Free Text) Assessment: 71 yo female with PMH of CVA, HTN, COPD, DMII, sleep apnea, diabetic neuropathy presents with weakness and confusion, found to have right sided facial droop and expressive aphasia. Patient has history of CVA. CT head showed multiple old infarcts. MRI showed acute left basal ganglia infarct, carotid US showed bilateral 20-39% stenosis. Plan: 1. confusion with expressive aphasia - MRI showed acuyte left basal ganglia infarct - given asa 325 in ED - not candidate for tPA due to onset of symptoms - started aggrenox per neuro - cont atrovastatin, increased to 40mg, lower dose to avoid adverse reaction, including liver toxicity - speech and swallow showed moderate dysphagia, started on dyphagia diet - PT eval - neuro consult 2. hyperlipidemia - cholesterol elevated - currently on zetia - start on atrovastatin 80mg 3. DM - HgbA1C 6.1 - ISS <Billy Stock S - Last Filed: 12/18/16 16:35> Objective - Vital Signs/Intake and Output Vital Signs (last 24 hours): Temp Pulse Resp BP Pulse Ox 99 F 72 18 131/83 100 12/18/16 12:00 12/18/16 12:00 12/18/16 12:00 12/18/16 12:00 12/18/16 06:00 Intake and Output: 12/18/16 12/18/16 06:59 18:59 Intake Total 80 480 Output Total 0 500 Balance 80 -20 - Medications Medications: Current Medications Allopurinol (Zyloprim) 300 mg PO DAILY [facility] Last Admin: 12/18/16 10:19 Dose: 300 mg Alprazolam (Xanax) 0.5 mg PO DAILY PRN; Protocol PRN Reason: Anxiety Stop: 12/24/16 10:01 Atorvastatin Calcium (Lipitor) 40 mg PO DIN [facility] Bupropion HCl (Wellbutrin Xl) 300 mg PO DAILY [facility] Last Admin: 12/18/16 10:19 Dose: 300 mg Dipyridamole/Aspirin (Aggrenox 25-200 Mg) 1 ea PO BID [facility] Last Admin: 12/18/16 10:16 Dose: 1 ea Folic Acid (Folic Acid) 1 mg PO DAILY [facility] Last Admin: 12/18/16 10:16 Dose: 1 mg Gabapentin (Neurontin) 300 mg PO QID [facility] PRN Reason: Protocol Last Admin: 12/18/16 13:05 Dose: 300 mg Insulin Human Regular (Humulin R Low) 0 units SC ACHS [facility] PRN Reason: Protocol Last Admin: 12/18/16 12:07 Dose: Not Given Mesalamine (Pentasa) 500 mg PO QID [facility] Last Admin: 12/18/16 13:05 Dose: 500 mg Methotrexate (Methotrexate) 12.5 mg PO QWK [facility] Last Admin: 12/17/16 10:42 Dose: 12.5 mg Montelukast Sodium (Singulair) 10 mg PO HS [facility] Last Admin: 12/17/16 22:07 Dose: 10 mg Non-Formulary Medication (Budesonide/Formoterol Fumarate [Symbicort 160-4.5 Mcg Inhaler]) 2 aer IH BID [facility] Last Admin: 12/18/16 10:16 Dose: Not Given Paroxetine HCl (Paxil) 20 mg PO BID [facility] Last Admin: 12/18/16 10:18 Dose: 20 mg Tiotropium [place] (Spiriva) 18 mcg IH QPM [facility] Last Admin: 12/17/16 19:02 Dose: 18 mcg Tobramycin Sulfate (Tobrex 0.3% [facility]) 5 drop OS QID [facility] Last Admin: 12/18/16 13:06 Dose: 5 drop - Labs Labs: PT 10.8 Seconds (9.9-11.8) 12/17/16 00:00 INR 1.00 (0.93-1.08) 12/17/16 00:00 APTT 25.5 Seconds (23.7-30.8) 12/17/16 00:00 Assessment and Plan - Assessment and Plan (Free Text) Plan: Pt seen and examined. Reviewed the note of the resident and I agree with it. Meds and labs reviewed. Spoke to sister. Pt and sister agree with [facility]EL, possibly to a [place] rehab to be closer to family.
[2016-12-18] MEDS: Insulin Reg-LOW-Coverage SC SCH ×3 (08:35→19:35)
--- NOTE | 2016-12-18 09:21 | CP.PCM.PN ---
<Oumou Hamlin - Last Filed: 12/18/16 11:57> Subjective - Date & Time of Evaluation Date of Evaluation: 12/18/16 Time of Evaluation: 09:18 - Subjective Subjective: Neurology Progress Note for Ailyn Ca PGY2 Patient seen and examined at bedside. As per nursing, there were no acute overnight events. Upon examination, patient was ambulating with cane without trouble. She reports feeling a little less confused today. Her aphasia has slightly improved. She is able to answer some questions with a more descriptive response. She is A&O x 3. She denies having any headaches, CP, SOB, dizziness, new weakness, numbness or tingling. Objective - Vital Signs/Intake and Output Vital Signs (last 24 hours): Temp Pulse Resp BP Pulse Ox 97.8 F 70 19 132/67 100 12/18/16 06:00 12/18/16 06:00 12/18/16 06:00 12/18/16 06:00 12/18/16 06:00 Intake and Output: 12/18/16 12/18/16 06:59 18:59 Intake Total 80 Output Total 0 Balance 80 - Medications Medications: Current Medications Allopurinol (Zyloprim) 300 mg PO DAILY [facility] Last Admin: 12/17/16 09:20 Dose: 300 mg Alprazolam (Xanax) 0.5 mg PO DAILY PRN; Protocol PRN Reason: Anxiety Stop: 12/24/16 10:01 Atorvastatin Calcium (Lipitor) 80 mg PO DIN [facility] Last Admin: 12/17/16 17:24 Dose: 80 mg Bupropion HCl (Wellbutrin Xl) 300 mg PO DAILY [facility] Last Admin: 12/17/16 09:20 Dose: 300 mg Dipyridamole/Aspirin (Aggrenox 25-200 Mg) 1 ea PO BID [facility] Last Admin: 12/17/16 19:54 Dose: 1 ea Ezetimibe (Zetia) 10 mg PO DAILY [facility] Last Admin: 12/17/16 09:20 Dose: 10 mg Folic Acid (Folic Acid) 1 mg PO DAILY [facility] Last Admin: 12/17/16 09:20 Dose: 1 mg Gabapentin (Neurontin) 300 mg PO QID [facility] PRN Reason: Protocol Last Admin: 12/17/16 22:07 Dose: 300 mg Insulin Human Regular (Humulin R Low) 0 units SC ACHS [facility] PRN Reason: Protocol Last Admin: 12/18/16 08:35 Dose: Not Given Mesalamine (Pentasa) 500 mg PO QID [facility] Last Admin: 12/17/16 22:07 Dose: 500 mg Methotrexate (Methotrexate) 12.5 mg PO QWK [facility] Last Admin: 12/17/16 10:42 Dose: 12.5 mg Montelukast Sodium (Singulair) 10 mg PO HS [facility] Last Admin: 12/17/16 22:07 Dose: 10 mg Non-Formulary Medication (Budesonide/Formoterol Fumarate [Symbicort 160-4.5 Mcg Inhaler]) 2 aer IH BID [facility] Last Admin: 12/17/16 19:02 Dose: Not Given Paroxetine HCl (Paxil) 20 mg PO BID [facility] Last Admin: 12/17/16 17:25 Dose: 20 mg Tiotropium [place] (Spiriva) 18 mcg IH QPM [facility] Last Admin: 12/17/16 19:02 Dose: 18 mcg Tobramycin Sulfate (Tobrex 0.3% [facility] Soln) 5 drop OS QID [facility] Last Admin: 12/17/16 22:08 Dose: 5 drop - Labs Labs: PT 10.8 Seconds (9.9-11.8) 12/17/16 00:00 INR 1.00 (0.93-1.08) 12/17/16 00:00 APTT 25.5 Seconds (23.7-30.8) 12/17/16 00:00 - Constitutional Appears: Well - Head Exam Head Exam: ATRAUMATIC, NORMAL INSPECTION, NORMOCEPHALIC - Eye Exam Eye Exam: EOMI, Normal appearance, PERRL Pupil Exam: NORMAL ACCOMODATION, PERRL - ENT Exam ENT Exam: Mucous Membranes Moist, Normal Exam - Neck Exam Neck Exam: Full ROM, Normal Inspection. absent: Lymphadenopathy - Respiratory Exam Respiratory Exam: Clear to Ausculation Bilateral, NORMAL BREATHING PATTERN - Cardiovascular Exam Cardiovascular Exam: REGULAR RHYTHM, +S1, +S2. absent: Murmur - GI/Abdominal Exam GI & Abdominal Exam: Soft, Normal Bowel Sounds. absent: Guarding, Tenderness, Mass - Extremities Exam Extremities Exam: Full ROM, Normal Capillary Refill, Normal Inspection. absent : Joint Swelling, Pedal Edema - Neurological Exam Neurological Exam: Alert, Awake, CN II-XII Intact, Oriented x3. absent: Motor Sensory Deficit Neuro motor strength exam: Left Upper Extremity: 5, Right Upper Extremity: 5, Left Lower Extremity: 5, Right Lower Extremity: 5 Additional comments: Expressive aphasia and R sided facial droop not including the forehead Strength and sensation intact. No dysmetria noted. - Psychiatric Exam Psychiatric exam: Normal Affect, Normal Mood - Skin Skin Exam: Dry, Intact, Normal Color, Warm Assessment and Plan - Assessment and Plan (Free Text) Assessment: This is a 71Y F with PMH HTN, DM, CVA, and COPD who came to ED for weakness and confusion x 3 days. Patient found to have L basal ganglia stroke on MRI secondary to diffuse atherosclerosis from uncontrolled risk factors causing aphasia. Carotid dopplers showed 20-39% stenosis bilaterally. HgbA1c was 6.1. Plan: - Maintain SBP 130-140s - Continue Aggrenox and Atorvastatin - Atorvastatin 80mg daily - Recommend cardiac work up - Continue PT/OT Thank you for this consultation. No further neurological work up is needed at this time. It is recommended that patient follow up with Dr. Caldwell as outpatient after discharge. Case seen, discussed and reviewed with attending, Dr. Caldwell. Ailyn Hamlin PGY2 <Lorne Caldwell - Last Filed: 12/18/16 13:02> Objective - Vital Signs/Intake and Output Vital Signs (last 24 hours): Temp Pulse Resp BP Pulse Ox 99 F 72 18 131/83 100 12/18/16 12:00 12/18/16 12:00 12/18/16 12:00 12/18/16 12:00 12/18/16 06:00 Intake and Output: 12/18/16 12/18/16 06:59 18:59 Intake Total 80 Output Total 0 0 Balance 80 0 - Medications Medications: Current Medications Allopurinol (Zyloprim) 300 mg PO DAILY [facility] Last Admin: 12/18/16 10:19 Dose: 300 mg Alprazolam (Xanax) 0.5 mg PO DAILY PRN; Protocol PRN Reason: Anxiety Stop: 12/24/16 10:01 Atorvastatin Calcium (Lipitor) 40 mg PO DIN [facility] Bupropion HCl (Wellbutrin Xl) 300 mg PO DAILY [facility] Last Admin: 12/18/16 10:19 Dose: 300 mg Dipyridamole/Aspirin (Aggrenox 25-200 Mg) 1 ea PO BID [facility] Last Admin: 12/18/16 10:16 Dose: 1 ea Folic Acid (Folic Acid) 1 mg PO DAILY [facility] Last Admin: 12/18/16 10:16 Dose: 1 mg Gabapentin (Neurontin) 300 mg PO QID [facility] PRN Reason: Protocol Last Admin: 12/18/16 10:17 Dose: 300 mg Insulin Human Regular (Humulin R Low) 0 units SC ACHS [facility] PRN Reason: Protocol Last Admin: 12/18/16 12:07 Dose: Not Given Mesalamine (Pentasa) 500 mg PO QID [facility] Last Admin: 12/18/16 10:18 Dose: 500 mg Methotrexate (Methotrexate) 12.5 mg PO QWK [facility] Last Admin: 12/17/16 10:42 Dose: 12.5 mg Montelukast Sodium (Singulair) 10 mg PO HS [facility] Last Admin: 12/17/16 22:07 Dose: 10 mg Non-Formulary Medication (Budesonide/Formoterol Fumarate [Symbicort 160-4.5 Mcg Inhaler]) 2 aer IH BID [facility] Last Admin: 12/18/16 10:16 Dose: Not Given Paroxetine HCl (Paxil) 20 mg PO BID [facility] Last Admin: 12/18/16 10:18 Dose: 20 mg Tiotropium [place] (Spiriva) 18 mcg IH QPM [facility] Last Admin: 12/17/16 19:02 Dose: 18 mcg Tobramycin Sulfate (Tobrex 0.3% [facility] Soln) 5 drop OS QID [facility] Last Admin: 12/18/16 10:24 Dose: 5 drop - Labs Labs: PT 10.8 Seconds (9.9-11.8) 12/17/16 00:00 INR 1.00 (0.93-1.08) 12/17/16 00:00 APTT 25.5 Seconds (23.7-30.8) 12/17/16 00:00 Attending/Attestation - Attestation I have personally seen and examined this patient.: Yes I have fully participated in the care of the patient.: Yes I have reviewed all pertinent clinical information, including history, physical exam and plan: Yes
[2016-12-18] MEDS: Aspirin-Dipyridamole 200-25 mg ER Cap PO SCH ×2 (10:16→17:48)
[2016-12-18] MEDS: Non Formulary Medication (Budesonide/Formoterol Fumarate [Symbicort 160-4.5 Mcg Inhaler] 2 IH SCH ×2 (10:16→17:48)
[2016-12-18] MEDS: Mesalamine ER Cap 500 MG PO SCH ×4 (10:18→21:23)
[2016-12-18] MEDS: buPROPion 300 mg/24 Hours XL Tab PO SCH (10:19)
[2016-12-18] MEDS: Tobramycin 0.3% OPHT SOLN OS SCH ×4 (10:24→21:23)
[2016-12-18 17:21] VITALS: RESP 20
[2016-12-18] MEDS: Tiotropium 18 mcg Cap For Inhalation IH SCH (17:50)
[2016-12-19] MEDS: Insulin Reg-LOW-Coverage SC SCH ×7 (00:07→21:47)
--- NOTE | 2016-12-19 00:47 | CON ---
REASON FOR CONSULTATION: Cardiac evaluation, admitted with CVA. BRIEF CLINICAL HISTORY: This is a 71-year-old female with past medical history significant for diabetes, hypertension, hyperlipidemia, COPD, sleep apnea, diabetic retinopathy, presented with altered mental status and confusion. Workup showed left basal ganglia stroke on MRI secondary to diffuse atherosclerotic from uncontrolled risk factor. The patient has expressive aphasia. Denies any localizing signs. Denies any chest pain. Denies any shortness of breath. Denies any palpitation. PAST MEDICAL HISTORY: Significant for diabetes, hypertension, hyperlipidemia, COPD, history of stress test 3-4 years ago. SOCIAL HISTORY: Denies smoking. Denies any history alcohol abuse. CURRENT MEDICATIONS: The patient was at home was taking quinapril, glipizide, Lasix, gabapentin, and Zetia. REVIEW OF SYSTEMS: As per HPI. ALLERGIES: ALLERGIC TO BACITRACIN AND PERFUME. PHYSICAL EXAMINATION: VITAL SIGNS: As follows: Temperature afebrile, heart rate 72, blood pressure 131/83. HEENT: PERRLA intact. NECK: Supple. No carotid bruit. No thyromegaly. CHEST: Clear to auscultation. HEART: S1 and S2 regular. ABDOMEN: Soft. EXTREMITIES: Clubbing and cyanosis negative. LABORATORY DATA: Blood workup as follows; WBC 8.7, hemoglobin 13.7, hematocrit 40.1, and platelet count 295. Chemistry shows sodium 144, potassium 3.6, chloride 104, carbon dioxide 27, anion gap of 22, BUN *------*, and creatinine 0.6. Triglycerides of 204, cholesterol of 229, LDL of 147, and HDL of 51. Hemoglobin A1c is 6.1. Bilateral carotid duplex 20%-39% stenosis noted. Brain MRI acute infarct left basal extending to superior to left shields radiata. IMPRESSION AND PLAN: Altered mental status secondary to basal ganglia infarct, cerebrovascular accident, diabetes, hypertension, hyperlipidemia, and obesity. Cardiac evaluation was called. Recommendation lipid profile, TSH, hemoglobin A1c. If echo was not done, will repeat echo to rule out any thrombus. The patient has last echo was done in 04/2016 that showed concentric left ventricular hypertrophy, no wall motion abnormality, and pulmonary hypertension. Continue aspirin. Continue atorvastatin and we will get lipid profile,TSH, and hemoglobin A1c. We will get echo. Further recommendation with hospital course. The patient's EKG shows normal sinus, left ventricular hypertrophy, no acute ST-T changes noted. We will follow with you. Thank you *------* for providing me the opportunity in taking care of Pooja Moseley. Usama Bolton MD
[2016-12-19 06:46] LABS: BASO # 0.03 K/mm3 (0.0-2.0); BASO % 0.3 % (0.0-3.0); EOS # 0.4 (0.0-0.7); EOS % 3.8 % (1.5-5.0); GRAN # 5.98 (1.4-6.5); GRAN % 63.6 % (50.0-68.0); HEMATOCRIT 39.3 % (36.0-48.0); LYMPH # 2.5 (1.2-3.4); MEAN CELL VOLUME 93.3 fl (80.0-105.0); MEAN CORPUSCULAR HEMOGLOBIN 30.9 pg (25.0-35.0); MEAN CORPUSCULAR HGB CONC 33.1 g/dl (31.0-37.0); MEAN PLATELET VOLUME 9.8 fl (7.0-11.0); MONO # 0.5 (0.1-0.6); MONO % 5.3 % (1.0-6.0); RED CELL DISTRIBUTION WIDTH 13.7 % (11.5-14.5); WHITE BLOOD COUNT 9.4 10^3/ul (4.5-11.0)
[2016-12-19 06:48] LABS: ALB/GLOB RATIO 1.5 (1.1-1.8); ALKALINE PHOSPHATASE 79 U/L (38-126); ALT/SGPT 29 U/L (7-56); AST/SGOT 20 U/L (14-36); BILIRUBIN,TOTAL 0.6 mg/dL (0.2-1.3); BLOOD UREA NITROGEN 17 mg/dL (7-21); CARBON DIOXIDE 31 mmol/L (21-33); CHLORIDE 102 mmol/L (95-110); GFR AFRICAN-AMERICAN > 60; GLUCOSE,RANDOM 106 mg/dL (70-110); MAGNESIUM 1.9 mg/dL (1.7-2.2); PHOSPHOROUS 4.2 mg/dL (2.5-4.5); POTASSIUM 3.6 mmol/L (3.6-5.0); SODIUM 144 mmol/L (132-148); TOTAL PROTEIN 6.5 g/dL (5.8-8.3)
--- NOTE | 2016-12-19 07:16 | CP.PCM.PN ---
<Marlene Carrera - Last Filed: 12/19/16 09:58> Subjective - Date & Time of Evaluation Date of Evaluation: 12/19/16 Time of Evaluation: 07:15 - Subjective Subjective: PGY-[address] Stock Patient seen and examined at bedside. No acute distress. Patient states she is feeling better. Denies chest pain, sob, abd pain, headache, fever, chills. She is tolerating diet. Objective - Vital Signs/Intake and Output Vital Signs (last 24 hours): Temp Pulse Resp BP Pulse Ox 98.9 F 74 20 144/76 94 L 12/18/16 16:00 12/18/16 16:00 12/18/16 16:00 12/18/16 16:00 12/18/16 16:00 Intake and Output: 12/19/16 12/19/16 06:59 18:59 Intake Total 360 Output Total 0 Balance 360 - Medications Medications: Current Medications Allopurinol (Zyloprim) 300 mg PO DAILY [facility] Last Admin: 12/18/16 10:19 Dose: 300 mg Alprazolam (Xanax) 0.5 mg PO DAILY PRN; Protocol PRN Reason: Anxiety Stop: 12/24/16 10:01 Atorvastatin Calcium (Lipitor) 40 mg PO DIN [facility] Last Admin: 12/18/16 17:48 Dose: 40 mg Bupropion HCl (Wellbutrin Xl) 300 mg PO DAILY [facility] Last Admin: 12/18/16 10:19 Dose: 300 mg Dipyridamole/Aspirin (Aggrenox 25-200 Mg) 1 ea PO BID [facility] Last Admin: 12/18/16 17:48 Dose: 1 ea Folic Acid (Folic Acid) 1 mg PO DAILY [facility] Last Admin: 12/18/16 10:16 Dose: 1 mg Gabapentin (Neurontin) 300 mg PO QID [facility] PRN Reason: Protocol Last Admin: 12/18/16 21:23 Dose: 300 mg Insulin Human Regular (Humulin R Low) 0 units SC ACHS [facility] PRN Reason: Protocol Last Admin: 12/19/16 00:07 Dose: Not Given Mesalamine (Pentasa) 500 mg PO QID [facility] Last Admin: 12/18/16 21:23 Dose: 500 mg Methotrexate (Methotrexate) 12.5 mg PO QWK [facility] Last Admin: 12/17/16 10:42 Dose: 12.5 mg Montelukast Sodium (Singulair) 10 mg PO HS [facility] Last Admin: 12/18/16 21:23 Dose: 10 mg Non-Formulary Medication (Budesonide/Formoterol Fumarate [Symbicort 160-4.5 Mcg Inhaler]) 2 aer IH BID [facility] Last Admin: 12/18/16 17:48 Dose: Not Given Paroxetine HCl (Paxil) 20 mg PO BID [facility] Last Admin: 12/18/16 17:49 Dose: 20 mg Tiotropium Exira (Spiriva) 18 mcg IH QPM [facility] Last Admin: 12/18/16 17:50 Dose: 18 mcg Tobramycin Sulfate (Tobrex 0.3% [facility]) 5 drop OS QID [facility] Last Admin: 12/18/16 21:23 Dose: 5 drop - Labs Labs: 12/19/16 06:19 PT 10.8 Seconds (9.9-11.8) 12/17/16 00:00 INR 1.00 (0.93-1.08) 12/17/16 00:00 APTT 25.5 Seconds (23.7-30.8) 12/17/16 00:00 - Constitutional Appears: Well, No Acute Distress - Head Exam Head Exam: ATRAUMATIC, NORMOCEPHALIC - Eye Exam Eye Exam: EOMI, Normal appearance - ENT Exam ENT Exam: Mucous Membranes Moist - Respiratory Exam Respiratory Exam: Clear to Ausculation Bilateral, NORMAL BREATHING PATTERN. absent: Decreased Breath Sounds, Rhonchi, Wheezes, Respiratory Distress - Cardiovascular Exam Cardiovascular Exam: REGULAR RHYTHM, +S1, +S2. absent: Tachycardia, Murmur - GI/Abdominal Exam GI & Abdominal Exam: Soft, Normal Bowel Sounds. absent: Distended, Firm, Tenderness - Extremities Exam Extremities Exam: Normal Inspection. absent: Pedal Edema, Tenderness - Neurological Exam Neurological Exam: Alert, Awake, Oriented x3 Additional comments: right sided facial droop, slurred speech improving - Skin Skin Exam: Dry, Intact, Normal Color, Warm Assessment and Plan - Assessment and Plan (Free Text) Assessment: 71 yo female with PMH of CVA, HTN, COPD, DMII, sleep apnea, diabetic neuropathy presents with weakness and confusion, found to have right sided facial droop and expressive aphasia. Patient has history of CVA. CT head showed multiple old infarcts. MRI showed acute left basal ganglia infarct, carotid US showed bilateral 20-39% stenosis. Plan: 1. confusion with expressive aphasia - MRI showed acuyte left basal ganglia infarct - given asa 325 in ED - not candidate for tPA due to onset of symptoms - started aggrenox per neuro - cont atrovastatin, increased to 40mg, lower dose to avoid adverse reaction, including liver toxicity - speech and swallow showed moderate dysphagia, started on dyphagia diet - TSH 1.6, wnl - PT eval, recommened [facility] - neuro consult - cardiology consuted, recpommended repeat echo, TSH 2. hyperlipidemia - cholesterol elevated - discontined zetia - cont on atrovastatin 40mg, lower dose to avoid adverse reaction, including liver toxicity 3. DM - HgbA1C 6.1 - ISS dispo: accepted to [facility], possible D/C tomorrow <Billy Stock - Last Filed: 12/19/16 20:48> Objective - Vital Signs/Intake and Output Vital Signs (last 24 hours): Temp Pulse Resp BP Pulse Ox 99.0 F 79 20 142/93 H 97 12/19/16 17:38 12/19/16 17:38 12/19/16 17:38 12/19/16 17:38 12/19/16 17:38 Intake and Output: 12/19/16 12/20/16 18:59 06:59 Intake Total 600 Balance 600 - Medications Medications: Current Medications Allopurinol (Zyloprim) 300 mg PO DAILY [facility] Last Admin: 12/19/16 09:14 Dose: 300 mg Alprazolam (Xanax) 0.5 mg PO DAILY PRN; Protocol PRN Reason: Anxiety Stop: 12/24/16 10:01 Atorvastatin Calcium (Lipitor) 40 mg PO DIN [facility] Last Admin: 12/19/16 17:29 Dose: 40 mg Bupropion HCl (Wellbutrin Xl) 300 mg PO DAILY [facility] Last Admin: 12/19/16 09:14 Dose: 300 mg Dipyridamole/Aspirin (Aggrenox 25-200 Mg) 1 ea PO BID [facility] Last Admin: 12/19/16 17:29 Dose: 1 ea Folic Acid (Folic Acid) 1 mg PO DAILY [facility] Last Admin: 12/19/16 09:14 Dose: 1 mg Gabapentin (Neurontin) 300 mg PO QID [facility] PRN Reason: Protocol Last Admin: 12/19/16 17:29 Dose: 300 mg Insulin Human Regular (Humulin R Low) 0 units SC ACHS [facility] PRN Reason: Protocol Last Admin: 12/19/16 17:12 Dose: Not Given Mesalamine (Pentasa) 500 mg PO QID [facility] Last Admin: 12/19/16 17:29 Dose: 500 mg Methotrexate (Methotrexate) 12.5 mg PO QWK [facility] Last Admin: 12/17/16 10:42 Dose: 12.5 mg Montelukast Sodium (Singulair) 10 mg PO HS [facility] Last Admin: 12/18/16 21:23 Dose: 10 mg Non-Formulary Medication (Budesonide/Formoterol Fumarate [Symbicort 160-4.5 Mcg Inhaler]) 2 aer IH BID [facility] Last Admin: 12/19/16 17:30 Dose: Not Given Paroxetine HCl (Paxil) 20 mg PO BID [facility] Last Admin: 12/19/16 17:29 Dose: 20 mg Tiotropium Exira (Spiriva) 18 mcg IH QPM [facility] Last Admin: 12/19/16 17:29 Dose: 18 mcg Tobramycin Sulfate (Tobrex 0.3% [facility]) 5 drop OS QID [facility] Last Admin: 12/19/16 17:30 Dose: 5 drop - Labs Labs: 12/19/16 06:19 12/19/16 06:19 PT 10.8 Seconds (9.9-11.8) 12/17/16 00:00 INR 1.00 (0.93-1.08) 12/17/16 00:00 APTT 25.5 Seconds (23.7-30.8) 12/17/16 00:00 Assessment and Plan - Assessment and Plan (Free Text) Plan: Pt seen and examined. Above note of durable medical equipment repairer reviewed and agree. Labs and medications reviewed. Plan for pt to go to [facility] in am. Doing well with PT.
[2016-12-19] MEDS: Aspirin-Dipyridamole 200-25 mg ER Cap PO SCH ×2 (09:14→17:29)
[2016-12-19] MEDS: Tobramycin 0.3% OPHT SOLN OS SCH ×4 (09:14→21:46)
[2016-12-19] MEDS: Mesalamine ER Cap 500 MG PO SCH ×4 (09:14→21:46)
[2016-12-19] MEDS: buPROPion 300 mg/24 Hours XL Tab PO SCH (09:14)
[2016-12-19] MEDS: Non Formulary Medication (Budesonide/Formoterol Fumarate [Symbicort 160-4.5 Mcg Inhaler] 2 IH SCH ×2 (09:15→17:30)
--- NOTE | 2016-12-19 13:02 | CP.PCM.PN ---
<Oumou Hamlin - Last Filed: 12/19/16 12:57> Subjective - Date & Time of Evaluation Date of Evaluation: 12/19/16 Time of Evaluation: 12:57 - Subjective Subjective: Neurology Progress Note for Ailyn Ca PGY2 Patient seen and examined at bedside. There were no acute overnight events as per nursing. She reports feeling well today. Her speech has improved and has been able to say full sentences. She denies CP, SOB, vision changes, numbness/ tingling, weakness, fever or chills. Yesterday, I spoke with patient and her sister, Nova. Patient and her sister were educated about strokes and the importance of managing risk factors such as diabetes, HTN and hyperlipidemia as well as physical therapy. Understanding of strokes and the plan was verbalized by both Nova (sister) and the patient. Objective - Vital Signs/Intake and Output Vital Signs (last 24 hours): Temp Pulse Resp BP Pulse Ox 98.5 F 66 20 131/70 98 12/19/16 06:00 12/19/16 06:00 12/19/16 06:00 12/19/16 06:00 12/19/16 06:00 Intake and Output: 12/19/16 12/19/16 06:59 18:59 Intake Total 360 Output Total 0 Balance 360 - Medications Medications: Current Medications Allopurinol (Zyloprim) [address] [facility] Last Admin: 12/19/16 09:14 Dose: 300 mg Alprazolam (Xanax) 0.5 mg PO DAILY PRN; Protocol PRN Reason: Anxiety Stop: 12/24/16 10:01 Atorvastatin Calcium (Lipitor) [address] [facility] Last Admin: 12/18/16 17:48 Dose: 40 mg Bupropion HCl (Wellbutrin Xl) [address] [facility] Last Admin: 12/19/16 09:14 Dose: 300 mg Dipyridamole/Aspirin (Aggrenox 25-200 Mg) [address] [facility] Last Admin: 12/19/16 09:14 Dose: 1 ea Folic Acid (Folic Acid) [address] [facility] Last Admin: 12/19/16 09:14 Dose: 1 mg Gabapentin (Neurontin) [address] [facility] PRN Reason: Protocol Last Admin: 12/19/16 09:14 Dose: 300 mg Insulin Human Regular (Humulin R Low) [address] [facility] PRN Reason: Protocol Last Admin: 12/19/16 12:30 Dose: 1 units Mesalamine (Pentasa) [address] [facility] Last Admin: 12/19/16 09:14 Dose: 500 mg Methotrexate (Methotrexate) 12.[address] [facility] Last Admin: 12/17/16 10:42 Dose: 12.5 mg Montelukast Sodium (Singulair) [address] [facility] Last Admin: 12/18/16 21:23 Dose: 10 mg Non-Formulary Medication (Budesonide/Formoterol Fumarate [Symbicort 160-4.5 Mcg Inhaler]) [address] [facility] Last Admin: 12/19/16 09:15 Dose: Not Given Paroxetine HCl (Paxil) [address] [facility] Last Admin: 12/19/16 09:14 Dose: 20 mg Tiotropium [place] (Spiriva) [address] [facility] Last Admin: 12/18/16 17:50 Dose: 18 mcg Tobramycin Sulfate (Tobrex 0.3% [facility]) [address] [facility] Last Admin: 12/19/16 09:14 Dose: 5 drop - Labs Labs: 12/19/16 06:19 12/19/16 06:19 PT 10.8 Seconds (9.9-11.8) 12/17/16 00:00 INR 1.00 (0.93-1.08) 12/17/16 00:00 APTT 25.5 Seconds (23.7-30.8) 12/17/16 00:00 - Constitutional Appears: No Acute Distress - Head Exam Head Exam: ATRAUMATIC, NORMAL INSPECTION, NORMOCEPHALIC - Eye Exam Eye Exam: EOMI, Normal appearance, PERRL Pupil Exam: NORMAL ACCOMODATION, PERRL - ENT Exam ENT Exam: Mucous Membranes Moist - Neck Exam Neck Exam: Full ROM, Normal Inspection - Respiratory Exam Respiratory Exam: Clear to Ausculation Bilateral, NORMAL BREATHING PATTERN. absent: Rales, Rhonchi, Wheezes - Cardiovascular Exam Cardiovascular Exam: REGULAR RHYTHM, +S1, +S2. absent: Gallop, Rubs, Murmur - GI/Abdominal Exam GI & Abdominal Exam: Soft, Normal Bowel Sounds. absent: Guarding, Tenderness, Mass, Rebound - Extremities Exam Extremities Exam: Normal Inspection. absent: Calf Tenderness, Pedal Edema - Neurological Exam Neurological Exam: Alert, Awake, CN II-XII Intact, Oriented x3 Neuro motor strength exam: Left Upper Extremity: 5, Right Upper Extremity: 4, Left Lower Extremity: 5, Right Lower Extremity: 4 Additional comments: R facial droop without loss of sensation. - Psychiatric Exam Psychiatric exam: Normal Affect, Normal Mood - Skin Skin Exam: Dry, Intact, Normal Color, Warm Assessment and Plan - Assessment and Plan (Free Text) Assessment: This is a 71Y F with PMH HTN, DM, CVA, HLD and COPD who came to ED for weakness and confusion x 3 days. Patient found to have L basal ganglia stroke on MRI secondary to diffuse atherosclerosis from uncontrolled risk factors causing aphasia. Carotid dopplers showed 20-39% stenosis bilaterally. HgbA1c was 6.3 with normal TSH and elevated cholesterol and LDL. Patient was evaluated by Cardiology as well. Plan: - Continue Aggrenox - Continue Lipitor - Recommend low cholesterol diet as well as exercise - Maintain euglycemia (140-180s) - PT recommended [facility] - Continue Speech therapy Patient is neurologically stable to go to rehab at this time. Once patient completes subacute rehab, it is recommended that patient follow up with Dr. Caldwell as outpatient. Case seen, discussed and reviewed with attending, Dr. Caldwell. Ailyn Hamlin PGY2 <Lorne Caldwell - Last Filed: 12/19/16 13:43> Objective - Vital Signs/Intake and Output Vital Signs (last 24 hours): Temp Pulse Resp BP Pulse Ox 98.5 F 66 20 131/70 98 12/19/16 06:00 12/19/16 06:00 12/19/16 06:00 12/19/16 06:00 12/19/16 06:00 Intake and Output: 12/19/16 12/19/16 06:59 18:59 Intake Total 360 Output Total 0 Balance 360 - Medications Medications: Current Medications Allopurinol (Zyloprim) [address] [facility] Last Admin: 12/19/16 09:14 Dose: 300 mg Alprazolam (Xanax) 0.5 mg PO DAILY PRN; Protocol PRN Reason: Anxiety Stop: 12/24/16 10:01 Atorvastatin Calcium (Lipitor) [address] [facility] Last Admin: 12/18/16 17:48 Dose: 40 mg Bupropion HCl (Wellbutrin Xl) [address] [facility] Last Admin: 12/19/16 09:14 Dose: 300 mg Dipyridamole/Aspirin (Aggrenox 25-200 Mg) [address] [facility] Last Admin: 12/19/16 09:14 Dose: 1 ea Folic Acid (Folic Acid) [address] [facility] Last Admin: 12/19/16 09:14 Dose: 1 mg Gabapentin (Neurontin) [address] [facility] PRN Reason: Protocol Last Admin: 12/19/16 13:22 Dose: 300 mg Insulin Human Regular (Humulin R Low) [address] [facility] PRN Reason: Protocol Last Admin: 12/19/16 12:30 Dose: 1 units Mesalamine (Pentasa) [address] [facility] Last Admin: 12/19/16 13:22 Dose: 500 mg Methotrexate (Methotrexate) 12.[address] [facility] Last Admin: 12/17/16 10:42 Dose: 12.5 mg Montelukast Sodium (Singulair) [address] [facility] Last Admin: 12/18/16 21:23 Dose: 10 mg Non-Formulary Medication (Budesonide/Formoterol Fumarate [Symbicort 160-4.5 Mcg Inhaler]) [address] [facility] Last Admin: 12/19/16 09:15 Dose: Not Given Paroxetine HCl (Paxil) [address] [facility] Last Admin: 12/19/16 09:14 Dose: 20 mg Tiotropium [place] (Spiriva) [address] [facility] Last Admin: 12/18/16 17:50 Dose: 18 mcg Tobramycin Sulfate (Tobrex 0.3% [facility]) [address] [facility] Last Admin: 12/19/16 13:23 Dose: 5 drop - Labs Labs: 12/19/16 06:19 12/19/16 06:19 PT 10.8 Seconds (9.9-11.8) 12/17/16 00:00 INR 1.00 (0.93-1.08) 12/17/16 00:00 APTT 25.5 Seconds (23.7-30.8) 12/17/16 00:00 Attending/Attestation - Attestation I have personally seen and examined this patient.: Yes I have fully participated in the care of the patient.: Yes I have reviewed all pertinent clinical information, including history, physical exam and plan: Yes
--- NOTE | 2016-12-19 15:12 | PN ---
DATE: 12/19/2016 LOCATION: The patient is in room 362, bed 1. REASON FOR CONSULTATION: Cardiac evaluation and CVA. SUBJECTIVE: The patient is sitting in chair comfortably without any chest pain, shortness of breath or palpitation. PHYSICAL EXAMINATION: VITAL SIGNS: Blood pressure is 131/70, respirations 20, pulse 66, temperature is 98.5. HEENT: Head is normocephalic. Eyes, pupils are normal. Conjunctivae normal. Nose and throat normal. NECK: JVP low. Carotids are equal. THORAX: AP diameter normal. LUNGS: Clear. CARDIOVASCULAR: S1 and S2. ABDOMEN: Soft, nontender. No organomegaly. Bowel sounds normal. EXTREMITIES: No clubbing. No cyanosis. LABORATORY DATA: WBC 9.4, hemoglobin 13.0, hematocrit 39.3, platelet 247. Sodium 144, potassium 3.6, BUN 17, creatinine 0.6, random sugar 167. Calcium, phosphorus, magnesium, AST, ALT normal. TSH 1.6. Total protein 6.5, albumin 3.9. Brain MRI, acute infarct left basal extending to superior to left shields radiata, bilateral carotid duplex showed 20% to 39% stenosis. DIAGNOSES: Altered mental status secondary to basal ganglia infarct, cerebrovascular accident, diabetes, hypertension, hyperlipidemia, and obesity. PLAN: The patient already had echo in 04/2016 that showed concentric LV hypertrophy, no wall motion abnormality seen, pulmonary hypertension. Echo has been ordered and it is pending, it has been ordered with the bubble study, and the patient is on Aggrenox 25-200 mg b.i.d., insulin as ordered, Lipitor 40 daily, methotrexate 12.5 mg p.o. weekly, Neurontin 300 t.i.d., Paxil 20 mg b.i.d., Pentasa 500 mg p.o. q.i.d., Singulair 10 mg at bedtime, Spiriva 18 mcg inhaler q.p.m, Wellbutrin XL 300 mg p.o. daily, Zyloprim 300 mg p.o. daily. We will continue present therapy. We will follow echo and we will follow. Usama Dumont MD
[2016-12-19] MEDS: Tiotropium 18 mcg Cap For Inhalation IH SCH (17:29)
--- NOTE | 2016-12-19 18:33 | CARD ---
APPROVED REPORT EXAM: Two-dimensional and M-mode echocardiogram with Doppler and color Doppler. INDICATION R/O PFO BUBBLE STUDY 2D DIMENSIONS Left Atrium (2D)3.6 (1.6-4.0cm)IVSd1.4 (0.7-1.1cm) LVDd3.8 (3.9-5.9cm)PWd1.1 (0.7-1.1cm) LVDs2.9 (2.5-4.0cm)FS (%) 22.9 % LVEF (%)46.8 (>50%) M-Mode DIMENSIONS Aortic Root2.40 (2.2-3.7cm)Aortic Cusp Exc.1.40 (1.5-2.0cm) Aortic Valve AoV Peak Zeqxzgye909.0cm/Marin Peak GR.9mmHg Mitral Valve MV E Acyurfls43.1cm/sMV A Tfgbgblj80.3cm/sE/A ratio0.7 TDI E/Lateral E'0.0E/Medial E'0.0 Tricuspid Valve TR Peak [id number]/sRAP [id number] Peak Gr.9mmHg [id number] LEFT VENTRICLE The left ventricle is normal size. There is mild concentric left ventricular hypertrophy. Proximal septal thickening is noted. The systolic function is mildly impaired.EF-45-50% There is mild hypokinesis in the mid-inferolateral wall. Transmitral Doppler flow pattern is Grade III-reversible restrictive diastolic dysfunction. No left ventricle thrombus noted on this study. There is no ventricular septal defect visualized. There is no left ventricular aneurysm. There is no mass noted in the left ventricle. RIGHT VENTRICLE The right ventricle is normal size. There is normal right ventricular wall thickness. The right ventricular systolic function is normal. ATRIA The left atrium size is normal. The right atrium size is normal. The interatrial septum is intact with no evidence for an atrial septal defect. AORTIC VALVE The aortic valve is thickened but opens well. No aortic regurgitation is present. There is no aortic valvular stenosis. There is no aortic valvular vegetation. MITRAL VALVE The mitral valve is thickened but opens well. Mitral regurgitation is trace. There is no mitral valve stenosis. There is no evidence of mitral valve prolapse. TRICUSPID VALVE The tricuspid valve leaflets are thickened , but open well. There is trace tricuspid regurgitation.RVSP-19 mmof hg. There is no tricuspid valve stenosis. There is no tricuspid valve prolapse or vegetation. PULMONIC VALVE The pulmonic valve is not well visualized. There is no pulmonic valvular regurgitation. GREAT VESSELS The aortic root is normal in size. The ascending aorta is normal in size. The pulmonary artery is normal. The IVC is normal in size and collapses >50% with inspiration. PERICARDIAL EFFUSION There is no pleural effusion. There is no pericardial effusion. <Conclusion> The left ventricle is normal size. There is mild concentric left ventricular hypertrophy. Proximal septal thickening is noted. The systolic function is mildly impaired.EF-45-50% Mitral regurgitation is trace. There is trace tricuspid regurgitation.RVSP-19 mmof hg. The IVC is normal in size and collapses >50% with inspiration. There is no pericardial effusion. No Vegetation or thrombus noted.
--- NOTE | 2016-12-20 06:43 | CP.PCM.PN ---
<Oumou Hamlin - Last Filed: 12/20/16 06:38> Subjective - Date & Time of Evaluation Date of Evaluation: 12/20/16 Time of Evaluation: 06:38 - Subjective Subjective: Neurology Progress Note for Ailyn Ca PGY2 Patient seen and examined at beside. As per nursing, there were no acute overnight events. Patient is resting comfortably in bed. She reports feeling well. She has been working with physical therapy. She denies CP, SOB, vision changes, numbness/tingling, weakness, n/v/d, fever or chills. Objective - Vital Signs/Intake and Output Vital Signs (last 24 hours): Temp Pulse Resp BP Pulse Ox 99.0 F 79 20 142/93 H 97 12/19/16 17:38 12/19/16 17:38 12/19/16 17:38 12/19/16 17:38 12/19/16 17:38 Intake and Output: 12/19/16 12/20/16 18:59 06:59 Intake Total 600 420 Balance 600 420 - Medications Medications: Current Medications Allopurinol (Zyloprim) 300 mg PO DAILY [facility] Last Admin: 12/19/16 09:14 Dose: 300 mg Alprazolam (Xanax) 0.5 mg PO DAILY PRN; Protocol PRN Reason: Anxiety Stop: 12/24/16 10:01 Atorvastatin Calcium (Lipitor) 80 mg PO DIN [facility] Bupropion HCl (Wellbutrin Xl) 300 mg PO DAILY [facility] Last Admin: 12/19/16 09:14 Dose: 300 mg Dipyridamole/Aspirin (Aggrenox 25-200 Mg) 1 ea PO BID [facility] Last Admin: 12/19/16 17:29 Dose: 1 ea Folic Acid (Folic Acid) 1 mg PO DAILY [facility] Last Admin: 12/19/16 09:14 Dose: 1 mg Gabapentin (Neurontin) 300 mg PO QID [facility] PRN Reason: Protocol Last Admin: 12/19/16 21:44 Dose: 300 mg Insulin Human Regular (Humulin R Low) 0 units SC ACHS [facility] PRN Reason: Protocol Last Admin: 12/19/16 21:47 Dose: Not Given Mesalamine (Pentasa) 500 mg PO QID [facility] Last Admin: 12/19/16 21:46 Dose: 500 mg Methotrexate (Methotrexate) 12.5 mg PO QWK [facility] Last Admin: 12/17/16 10:42 Dose: 12.5 mg Montelukast Sodium (Singulair) 10 mg PO HS [facility] Last Admin: 12/19/16 21:44 Dose: 10 mg Non-Formulary Medication (Budesonide/Formoterol Fumarate [Symbicort 160-4.5 Mcg Inhaler]) 2 aer IH BID [facility] Last Admin: 12/19/16 17:30 Dose: Not Given Paroxetine HCl (Paxil) 20 mg PO BID [facility] Last Admin: 12/19/16 17:29 Dose: 20 mg Tiotropium [place] (Spiriva) 18 mcg IH QPM [facility] Last Admin: 12/19/16 17:29 Dose: 18 mcg Tobramycin Sulfate (Tobrex 0.3% [facility]) 5 drop OS QID [facility] Last Admin: 12/19/16 21:46 Dose: 5 drop - Labs Labs: 12/19/16 06:19 12/19/16 06:19 PT 10.8 Seconds (9.9-11.8) 12/17/16 00:00 INR 1.00 (0.93-1.08) 12/17/16 00:00 APTT 25.5 Seconds (23.7-30.8) 12/17/16 00:00 - Constitutional Appears: No Acute Distress - Head Exam Head Exam: ATRAUMATIC, NORMAL INSPECTION, NORMOCEPHALIC - Eye Exam Eye Exam: Normal appearance, PERRL Pupil Exam: NORMAL ACCOMODATION, PERRL - ENT Exam ENT Exam: Mucous Membranes Moist, Normal Exam - Neck Exam Neck Exam: Full ROM - Respiratory Exam Respiratory Exam: Clear to Ausculation Bilateral, NORMAL BREATHING PATTERN. absent: Rales, Rhonchi, Wheezes - Cardiovascular Exam Cardiovascular Exam: REGULAR RHYTHM, +S1, +S2. absent: Gallop, Rubs, Murmur - GI/Abdominal Exam GI & Abdominal Exam: Soft, Normal Bowel Sounds. absent: Rigid, Tenderness, Hernia, Rebound - Extremities Exam Extremities Exam: Normal Inspection. absent: Calf Tenderness, Pedal Edema - Neurological Exam Neurological Exam: Alert, Awake, CN II-XII Intact, Oriented x3 Neuro motor strength exam: Left Upper Extremity: 5, Right Upper Extremity: 4, Left Lower Extremity: 5, Right Lower Extremity: 4 Additional comments: R sided facial droop. - Psychiatric Exam Psychiatric exam: Normal Affect, Normal Mood - Skin Skin Exam: Dry, Intact, Normal Color, Warm Assessment and Plan - Assessment and Plan (Free Text) Assessment: This is a 71Y F with PMH HTN, DM, CVA, HLD and COPD who came to ED for weakness and confusion x 3 days. Patient found to have L basal ganglia stroke on MRI secondary to diffuse atherosclerosis from uncontrolled risk factors causing aphasia and R sided facial droop. Carotid dopplers showed 20-39% stenosis bilaterally. HgbA1c was 6.3 with normal TSH. LDL noted to be 147 with cholesterol of 229. Echo showed EF of 46% with mild LVH. Patient's aphasia is slowly improving. Plan: - Continue physical therapy and speech therapy - Lipitor increased to 80mg - Continue Aggrenox - Heart Healthy Diet/ Carb consistent Diet Patient is neurologically stable fo acute rehab. It is recommended that patient follow up with Dr. Caldwell as outpatient. Case seen, discussed and reviewed with attending, Dr. Caldwell. Ailyn Hamlin PGY2 <Lorne Caldwell - Last Filed: 12/20/16 11:54> Objective - Vital Signs/Intake and Output Vital Signs (last 24 hours): Temp Pulse Resp BP Pulse Ox 97.8 F 64 20 131/70 96 12/20/16 08:32 12/20/16 08:32 12/20/16 08:32 12/20/16 08:32 12/20/16 08:32 Intake and Output: 12/20/16 12/20/16 06:59 18:59 Intake Total 420 Balance 420 - Medications Medications: Current Medications Allopurinol (Zyloprim) 300 mg PO DAILY [facility] Last Admin: 12/20/16 10:09 Dose: 300 mg Alprazolam (Xanax) 0.5 mg PO DAILY PRN; Protocol PRN Reason: Anxiety Stop: 12/24/16 10:01 Atorvastatin Calcium (Lipitor) 80 mg PO DIN [facility] Bupropion HCl (Wellbutrin Xl) 300 mg PO DAILY [facility] Last Admin: 12/20/16 10:09 Dose: 300 mg Dipyridamole/Aspirin (Aggrenox 25-200 Mg) 1 ea PO BID [facility] Last Admin: 12/20/16 10:09 Dose: 1 ea Folic Acid (Folic Acid) 1 mg PO DAILY [facility] Last Admin: 12/20/16 10:09 Dose: 1 mg Gabapentin (Neurontin) 300 mg PO QID [facility] PRN Reason: Protocol Last Admin: 12/20/16 10:09 Dose: 300 mg Insulin Human Regular (Humulin R Low) 0 units SC ACHS [facility] PRN Reason: Protocol Last Admin: 12/20/16 08:05 Dose: Not Given Mesalamine (Pentasa) 500 mg PO QID [facility] Last Admin: 12/20/16 10:09 Dose: 500 mg Methotrexate (Methotrexate) 12.5 mg PO QWK [facility] Last Admin: 12/17/16 10:42 Dose: 12.5 mg Montelukast Sodium (Singulair) 10 mg PO HS [facility] Last Admin: 12/19/16 21:44 Dose: 10 mg Non-Formulary Medication (Budesonide/Formoterol Fumarate [Symbicort 160-4.5 Mcg Inhaler]) 2 aer IH BID [facility] Last Admin: 12/19/16 17:30 Dose: Not Given Paroxetine HCl (Paxil) 20 mg PO BID [facility] Last Admin: 12/20/16 10:09 Dose: 20 mg Tiotropium [place] (Spiriva) 18 mcg IH QPM [facility] Last Admin: 12/19/16 17:29 Dose: 18 mcg Tobramycin Sulfate (Tobrex 0.3% [facility]) 5 drop OS QID [facility] Last Admin: 12/20/16 10:09 Dose: 5 drop - Labs Labs: 12/19/16 06:19 12/19/16 06:19 PT 10.8 Seconds (9.9-11.8) 12/17/16 00:00 INR 1.00 (0.93-1.08) 12/17/16 00:00 APTT 25.5 Seconds (23.7-30.8) 12/17/16 00:00
[2016-12-20] MEDS: Insulin Reg-LOW-Coverage SC SCH ×2 (08:05→13:47)
[2016-12-20 08:33] VITALS: BP 131/70; PULSE 64; TEMP 97.8; O2SAT 96
--- NOTE | 2016-12-20 08:57 | CP.PCM.PN ---
<Marlene Carrera - Last Filed: 12/20/16 11:17> Subjective - Date & Time of Evaluation Date of Evaluation: 12/20/16 Time of Evaluation: 08:54 - Subjective Subjective: PGY-[address] Stock Patient seen and examined at bedside. No acute distress. Patient is feeling well and has no complaints. She denies chest pain, dizziness, fever, chill, abd pain, n/v/d/c. She is tolerating diet. Objective - Vital Signs/Intake and Output Vital Signs (last 24 hours): Temp Pulse Resp BP Pulse Ox 97.8 F 64 20 131/70 96 12/20/16 08:32 12/20/16 08:32 12/20/16 08:32 12/20/16 08:32 12/20/16 08:32 Intake and Output: 12/20/16 12/20/16 06:59 18:59 Intake Total 420 Balance 420 - Medications Medications: Current Medications Allopurinol (Zyloprim) 300 mg PO DAILY [facility] Last Admin: 12/19/16 09:14 Dose: 300 mg Alprazolam (Xanax) 0.5 mg PO DAILY PRN; Protocol PRN Reason: Anxiety Stop: 12/24/16 10:01 Atorvastatin Calcium (Lipitor) 80 mg PO DIN [facility] Bupropion HCl (Wellbutrin Xl) 300 mg PO DAILY [facility] Last Admin: 12/19/16 09:14 Dose: 300 mg Dipyridamole/Aspirin (Aggrenox 25-200 Mg) 1 ea PO BID [facility] Last Admin: 12/19/16 17:29 Dose: 1 ea Folic Acid (Folic Acid) 1 mg PO DAILY [facility] Last Admin: 12/19/16 09:14 Dose: 1 mg Gabapentin (Neurontin) 300 mg PO QID [facility] PRN Reason: Protocol Last Admin: 12/19/16 21:44 Dose: 300 mg Insulin Human Regular (Humulin R Low) 0 units SC [facility] PRN Reason: Protocol Last Admin: 12/20/16 08:05 Dose: Not Given Mesalamine (Pentasa) 500 mg PO QID [facility] Last Admin: 12/19/16 21:46 Dose: 500 mg Methotrexate (Methotrexate) 12.5 mg PO QWK [facility] Last Admin: 12/17/16 10:42 Dose: 12.5 mg Montelukast Sodium (Singulair) 10 mg PO HS [facility] Last Admin: 12/19/16 21:44 Dose: 10 mg Non-Formulary Medication (Budesonide/Formoterol Fumarate [Symbicort 160-4.5 Mcg Inhaler]) 2 aer IH BID [facility] Last Admin: 12/19/16 17:30 Dose: Not Given Paroxetine HCl (Paxil) 20 mg PO BID [facility] Last Admin: 12/19/16 17:29 Dose: 20 mg Tiotropium [place] (Spiriva) 18 mcg IH QPM [facility] Last Admin: 12/19/16 17:29 Dose: 18 mcg Tobramycin Sulfate (Tobrex 0.3% [facility]) 5 drop OS QID [facility] Last Admin: 12/19/16 21:46 Dose: 5 drop - Labs Labs: 12/19/16 06:19 12/19/16 06:19 PT 10.8 Seconds (9.9-11.8) 12/17/16 00:00 INR 1.00 (0.93-1.08) 12/17/16 00:00 APTT 25.5 Seconds (23.7-30.8) 12/17/16 00:00 - Constitutional Appears: Well, No Acute Distress - Head Exam Head Exam: ATRAUMATIC, NORMAL INSPECTION, NORMOCEPHALIC - Eye Exam Eye Exam: EOMI, Normal appearance - ENT Exam ENT Exam: Mucous Membranes Moist - Respiratory Exam Respiratory Exam: Clear to Ausculation Bilateral, NORMAL BREATHING PATTERN. absent: Decreased Breath Sounds, Rales, Rhonchi, Wheezes, Respiratory Distress - Cardiovascular Exam Cardiovascular Exam: REGULAR RHYTHM, +S1, +S2. absent: Tachycardia, Murmur - GI/Abdominal Exam GI & Abdominal Exam: Soft, Normal Bowel Sounds. absent: Distended, Firm, Guarding, Tenderness - Extremities Exam Extremities Exam: Normal Inspection. absent: Pedal Edema, Tenderness - Neurological Exam Neurological Exam: Alert, Awake, Oriented x3 Additional comments: right sided facial droop, improvement of slurred speech. - Skin Skin Exam: Dry, Intact, Normal Color, Warm Assessment and Plan - Assessment and Plan (Free Text) Assessment: 71 yo female with PMH of CVA, HTN, COPD, DMII, sleep apnea, diabetic neuropathy presents with weakness and confusion, found to have right sided facial droop and expressive aphasia. Patient has history of CVA. CT head showed multiple old infarcts. MRI showed acute left basal ganglia infarct, carotid US showed bilateral 20-39% stenosis. Plan: 1. CVA with expressive aphasia - improved - MRI showed acute left basal ganglia infarct - given asa 325 in ED - not candidate for tPA due to onset of symptoms - cont aggrenox per neuro - cont atrovastatin, increased to 80mg - speech and swallow showed moderate dysphagia, started on dyphagia diet - TSH 1.6, wnl - echo EF 46% - PT eval, recommenced [facility] - neuro consult - cardiology consulted 2. hyperlipidemia - cholesterol elevated - discontinued zetia - cont on atrovastatin 80mg 3. DM - HgbA1C 6.1 - ISS dispo: accepted to [facility] <Billy Stock S - Last Filed: 12/20/16 21:22> Objective - Vital Signs/Intake and Output Vital Signs (last 24 hours): Temp Pulse Resp BP Pulse Ox 97.8 F 64 20 131/70 96 12/20/16 08:32 12/20/16 08:32 12/20/16 08:32 12/20/16 08:32 12/20/16 08:32 - Labs Labs: 12/19/16 06:19 12/19/16 06:19 PT 10.8 Seconds (9.9-11.8) 12/17/16 00:00 INR 1.00 (0.93-1.08) 12/17/16 00:00 APTT 25.5 Seconds (23.7-30.8) 12/17/16 00:00 Assessment and Plan - Assessment and Plan (Free Text) Plan: Pt seen and examined. Agree with above note of medical referral coordinator. She is going to [facility] today. Speech is better. Meds reviewed. Eating ok. D/C later today.
[2016-12-20] MEDS: Aspirin-Dipyridamole 200-25 mg ER Cap PO SCH (10:09)
[2016-12-20] MEDS: Tobramycin 0.3% OPHT SOLN OS SCH (10:09)
[2016-12-20] MEDS: buPROPion 300 mg/24 Hours XL Tab PO SCH (10:09)
[2016-12-20] MEDS: Mesalamine ER Cap 500 MG PO SCH (10:09)
--- NOTE | 2016-12-20 20:45 | PN ---
DATE: 12/20/2016 REASON FOR CONSULTATION: Cardiac evaluation, CVA. SUBJECTIVE: The patient is obviously not in apparent distress. PHYSICAL EXAMINATION: As follows: VITAL SIGNS: Temperature afebrile, heart rate 64, blood pressure 130/70. HEENT: PERRLA, intact. NECK: Supple. No carotid bruit. No thyromegaly. CHEST: Clear to auscultation. HEART: S1 and S2 regular. ABDOMEN: Soft. EXTREMITIES: Clubbing and cyanosis negative. LABORATORY DATA: Blood workup as follows; WBC 9.8, hemoglobin 13, hematocrit 39.3, platelet count 247 as of yesterday. IMPRESSION: Altered mental status. Echocardiogram showed concentric left ventricular hypertrophy, no wall motion abnormality. Pulmonary hypertension. Echocardiogram shows ejection fraction 45%. Trace mitral regurgitation, trace tricuspid regurgitation. Left ventricular systolic pressure 19 is normal 50 with inspiration. No pericardial effusion. No vegetation or thrombus. History of cerebrovascular accident. RECOMMENDATION: Continue Aggrenox, insulin, and Lipitor. We will follow with you. Thank you Dr. Avalos for providing us the opportunity in taking care of patient. We will follow with you. Usama Bolton MD
== END 2016-12-20 14:08 | DRG 65 ==
LOC: ED 23:28 → ERH 12-17 00:49 → 2RSO 12-17 02:17 → 3RNO 12-18 16:28
PROVIDERS: ADMIT Internal Medicine Nephrology; ATTEND Internal Medicine Nephrology
DX: I63.512 Cerebral infarction due to unspecified occlusion or stenosis of left middle cerebral artery (principal); Z68.43 Body mass index [BMI] 50.0-59.9, adult; R47.01 Aphasia; R29.703 NIHSS score 3; I10 Essential (primary) hypertension; I27.2 Other secondary pulmonary hypertension; R29.810 Facial weakness; I65.23 Occlusion and stenosis of bilateral carotid arteries; R13.10 Dysphagia, unspecified; E11.319 Type 2 diabetes mellitus with unspecified diabetic retinopathy without macular edema; E11.40 Type 2 diabetes mellitus with diabetic neuropathy, unspecified; J44.9 Chronic obstructive pulmonary disease, unspecified; G47.30 Sleep apnea, unspecified; E78.5 Hyperlipidemia, unspecified; E66.9 Obesity, unspecified; I08.1 Rheumatic disorders of both mitral and tricuspid valves; Z79.84 Long term (current) use of oral hypoglycemic drugs; Z87.891 Personal history of nicotine dependence

== ENCOUNTER 2017-11-21 08:34 | Day surgery (SDC) | payer MEDICARE ==
[2017-11-21] MEDS ORDERED: Bacitracin Ointment 30 GM TUBE ONE (09:37)
[2017-11-21] MEDS ORDERED: Liquid Adhesive TOP ONE (09:37)
[2017-11-21] MEDS ORDERED: Lidocaine 1% w Epi 1:100,000 Inj ONE (09:38)
[2017-11-21] MEDS ORDERED: Etomidate 20 mg/10ml Inj IV ONE (10:04)
[2017-11-21] MEDS ORDERED: Midazolam 2 MG/2 ML VIAL ONE (10:04)
[2017-11-21] MEDS ORDERED: ePHEDrine 50 mg/ml Inj ONE (10:13)
[2017-11-21] MEDS ORDERED: Povidone Iodine Ophthalmic 5% Soln ONE (10:20)
[2017-11-21] MEDS ORDERED: White Petrolatum Ophth Oint (Puralube) ONE (12:02)
[2017-11-21] MEDS ORDERED: Lidocaine PF 2% (5 ml) Inj (For Cardiac Arrhy) ONE (12:51)
[2017-11-21] MEDS ORDERED: Mupirocin 2% Ointment 15 GM TUBE TOP ONE (13:00)
[2017-11-21] MEDS ORDERED: HYDROmorphone 0.5 mg/0.5 ml ISec IVP PRN (13:25)
--- NOTE | 2017-11-21 13:27 | PCM.SURG1 ---
Surgeon's Initial Post Op Note - Surgeon's Notes Surgeon: Dr. Zaldivar Kitchen Worker: Paula PGY2 Type of Anesthesia: General Endo Anesthesia Administered By: Dr. Ramos Pre-Operative Diagnosis: Basal cell CA of nose and left forehead Operative Findings: Basal cell CA of nose and left forehead, actinic keratosis of left periauricular region Post-Operative Diagnosis: Basal cell CA of nose and left forehead, actinic keratosis of left periauricular region Operation Performed: excision and flap advancement of Basal cell CA of nose and left forehead, excision of actinic keratosis of left periauricular region x 2 Specimen/Specimens Removed: Basal cell CA of nose and left forehead, actinic keratosis of left periauricular region x 2 Estimated Blood Loss: EBL {In ML}: 10 Blood Products Given: N/A Drains Used: No Drains Post-Op Condition: Good Date of Surgery/Procedure: 11/21/17 Time of Surgery/Procedure: 13:27
[2017-11-21] MEDS ORDERED: Lactated Ringer's 1,000 ML IV SCH (13:30)
[2017-11-21] MEDS ORDERED: HYDROmorphone 0.5 mg/0.5 ml ISec ONE (14:10)
[2017-11-21] MEDS ORDERED: Labetalol 5 mg/ml Inj 20ML ONE (14:20)
[2017-11-21] MEDS ORDERED: Labetalol 5 mg/ml Inj 20ML IV ONE (14:27)
[2017-11-21 15:00] VITALS: BMI 48.6
[2017-11-21 15:13] VITALS: PULSE 63; RESP 20; TEMP 98.1; O2SAT 94
[2017-11-21 16:09] VITALS: BP 124/77
--- NOTE | 2017-11-22 02:55 | OP ---
Copied To: Jonah Zaldivar DO Attending MD: Jonah Zaldivar DO PROCEDURE DATE: 11/21/2017 PREOPERATIVE DIAGNOSES: Basal cell carcinoma involving nasal tip region, basal carcinoma involving the left forehead region and seborrheic keratosis involving the left preauricular region x2. The basal cell carcinomas were approximately 3 cm in length. POSTOPERATIVE DIAGNOSES: Basal cell carcinoma involving nasal tip region, basal carcinoma involving the left forehead region and seborrheic keratosis involving the left preauricular region x2. The basal cell carcinomas were approximately 3 cm in length. PROCEDURE: 1. Excision of basal cell carcinoma involving the left nasal tip region with complex closure. 2. Excision of basal cell carcinoma involving left forehead with complex closure and shave excision of two separate keratotic lesions involving the left preauricular region. SURGEON: Jonah Zaldivar DO ANESTHESIA: General. ESTIMATED BLOOD LOSS: 5 mL. OPERATIVE PROCEDURE: This is a 72-year-old white female with biopsy-proven basal carcinoma involving the left nasal tip region as well as a lesion involving the left forehead and two lesions involving the left preauricular region. The patient was prepped and draped in routine fashion and all lesions were injected using 1% Xylocaine with epinephrine. We began the procedure by excising the basal carcinoma involving the left nasal tip with #15 blade which was marked and sent down for frozen sections. Wider undermining was carried out with the scissor dissection. Bleeding was controlled with use of electrocautery. Frozen sections revealed positive margins deep as well as at the 6 o'clock and re-excision of these areas were then carried out with scissor dissection which then proved to be negative for positive margins on subsequent frozen section examination. The defect was then closed by approximating the subcutaneous tissues using 5-0 Vicryl suture in a buried knot fashion followed by 6-0 Prolene suture in a running locking fashion. Steri-Strips were then applied to the wound and care was then taken to the left forehead region where a #15 blade was used to elliptically excise the lesion and the bleeding was then controlled with use of electrocautery. Undermining of the skin edges was carried out superior and laterally with scissor dissection and 5-0 Vicryl suture in a simple interrupted knot fashion was then used to close the subcuticular layers. The epidermal layers was closed using 6-0 Prolene suture in a running locking fashion and Steri-Strips were applied. The left preauricular regions were excised using a #15 blade in a shave excision type fashion. Bleeding was controlled using topical Surgicel which was applied. The patient tolerated the procedure well and was taken from the operating room to the recovery room in stable condition. Jonah Zaldivar DO MTDD
== END 2017-11-21 17:00 | disposition home or self-care (01) ==
LOC: SDS 08:34
PROVIDERS: ATTEND Otolaryngology
DX: C44.311 Basal cell carcinoma of skin of nose (principal); C44.319 Basal cell carcinoma of skin of other parts of face; L82.1 Other seborrheic keratosis; E11.9 Type 2 diabetes mellitus without complications
CPT/HCPCS: 11440; 11641 ×2; 13132; 13152; 82948; 88305; 88331; J0690; J1170; J2250; J3010; J7120 ×2

== ENCOUNTER 2018-01-10 17:20 | Emergency (ER) | payer MEDICARE ==
[2018-01-10 17:31] VITALS: BMI 30.1
--- NOTE | 2018-01-10 17:51 | ED PDOC ---
Arrival/HPI - General Chief Complaint: Abdominal Pain Time Seen by Provider: 01/10/18 17:34 Historian: Patient - History of Present Illness Narrative History of Present Illness (Text): 01/10/18 17:46 A 72 year old female presents to the emergency department with a complaint of acute onset of urinary incontinence and severe right lower quadrant abdominal pain. The patient notes that the pain lasted for about an hour. Patient notes that she is much more comfortable now. The patient states that she has never experienced these symptoms before. She is refusing pain medication at this time. She is a non- smoker/ non- drinker. The patient denies fevers, chills, headache, dizziness, cough sore throat, chest pain, shortness of breath, nausea, vomiting, diarrhea, neck/back pain, bowel changes, dysuria, hematuria, or any other complaint. Time/Duration: Prior to Arrival Symptom Onset: Sudden Symptom Course: Unchanged Activities at Onset: Rest, Light Context: Home Associated Symptoms (Text): 01/10/18 18:01 Acute onset of urinary incontinence and severe right lower quadrant abdominal pain just prior to arrival which has since markedly improved. No back pain. She does have a history of kidney stones. No nausea vomiting or diarrhea. No hematuria. No fever or chills. No trauma. She is refusing pain medication at this time. Past Medical History - Provider Review Nursing Documentation Reviewed: Yes - Infectious Disease Hx of Infectious Diseases: None - Reproductive Menopause: No - Cardiac Hx Pacemaker: No - Pulmonary Hx Chronic Obstructive Pulmonary Disease (COPD): Yes - Neurological Hx Paralysis: No - HEENT Hx Deafness: Yes (NERVE DEAFNESS- B/L EARS) - Renal Hx Kidney Stones: Yes Other/Comment: MULTIPLE CYSTS ON KIDNEYS - Endocrine/Metabolic Hx Diabetes Mellitus Type 2: Yes - Hematological/Oncological Hx Blood Transfusions: No Hx Blood Transfusion Reaction: No - Integumentary Other/Comment: SKIN CA - Musculoskeletal/Rheumatological Hx Musculoskeletal Disorders: Yes - Gastrointestinal Hx Gastroesophageal Reflux: Yes - Genitourinary/Gynecological Other/Comment: SKIN CA - Psychiatric Hx Emotional Abuse: No Hx Physical Abuse: No Hx Substance Use: No - Surgical History Hx Orthopedic Surgery: Yes (LEFT WRIST, RT SHOULDER) Other/Comment: SKIN BIOPSY - Anesthesia Hx Anesthesia Reactions: No Hx Malignant Hyperthermia: No - Suicidal Assessment Feels Threatened In Home Enviroment: No Family/Social History - Physician Review Nursing Documentation Reviewed: Yes Family/Social History: No Known Family HX Smoking Status: Never Smoked Hx Alcohol Use: No Hx Substance Use: No Hx Substance Use Treatment: No Allergies/Home Meds Allergies/Adverse Reactions: Allergies bacitracin Allergy (Severe, Verified 10/23/17 11:17) REDNESS perfume Adverse Reaction (Severe, Verified 10/23/17 11:17) SHORTNESS OF BREATH TIDE DETERGENT Allergy (Severe, Uncoded 10/23/17 11:16) ITCHING/RASH Home Medications: Home Meds Medication Instructions Recorded Confirmed ALPRAZolam [Xanax] 0.5 mg PO HS 03/29/17 11/21/17 Albuterol HFA [Ventolin HFA 90 1 puff IH HS PRN 03/29/17 11/21/17 mcg/actuation (8 g)] Allopurinol [Zyloprim] 300 mg PO DAILY 03/29/17 11/21/17 Aspirin [Adult Low Dose Aspirin EC] 81 mg PO DAILY 03/29/17 11/21/17 Budesonide/Formoterol Fumarate 2 puff IH BID 03/29/17 11/21/17 [Symbicort] Bupropion HCl [Bupropion HCl Xl] 300 mg PO BID 03/29/17 11/21/17 Cholecalciferol [Vitamin D] 50,000 iu PO QWK 03/29/17 11/21/17 Esomeprazole Magnesium [Nexium] 40 mg PO DAILY 03/29/17 11/21/17 Ezetimibe [Zetia] 10 mg PO DAILY 03/29/17 11/21/17 Folic Acid 1 mg PO DAILY 03/29/17 11/21/17 Gabapentin [Neurontin] 300 mg PO BID 03/29/17 11/21/17 Glipizide [Glipizide ER] 2.5 mg PO DAILY 03/29/17 11/21/17 Mesalamine ER Cap [Pentasa] 2 tab PO QID 03/29/17 11/21/17 PARoxetine [Paxil] 2 tab PO BID 03/29/17 11/21/17 Potassium Chloride [Klor-Con 10] 10 meq PO BID 03/29/17 11/21/17 Quinapril HCl 10 mg PO DAILY 03/29/17 11/21/17 Tiotropium [Spiriva] 18 mcg IH DAILY 03/29/17 11/21/17 Carbidopa/Levodopa 1 tab PO BID 10/23/17 11/21/17 [Carbidopa-Levodopa 25-100 Tab] Dipyridamole 75 mg PO DAILY 10/23/17 11/21/17 Donepezil [Aricept] 10 mg PO HS 10/23/17 11/21/17 Gabapentin [Neurontin] 600 mg PO HS 10/23/17 11/21/17 Methotrexate 5 tab PO NICOLA 10/23/17 11/21/17 Cefadroxil [Duricef] 500 mg PO BID 11/21/17 11/21/17 Tylenol with Codeine #3 Tablet 1 tab PO Q4H PRN 11/21/17 11/21/17 Review of Systems - Physician Review All systems were reviewed & negative as marked: Yes - Review of Systems Constitutional: absent: Fatigue, Fevers, Night Sweats ENT: absent: Sore Throat Respiratory: absent: SOB, Cough Cardiovascular: absent: Chest Pain Gastrointestinal: Abdominal Pain. absent: Stool Changes, Diarrhea, Nausea, Vomiting Genitourinary Female: Urine Output Changes (Incontience). absent: Dysuria, Hematuria Musculoskeletal: absent: Back Pain, Neck Pain Neurological: absent: Headache, Dizziness Physical Exam Vital Signs Reviewed: Yes Vital Signs Temp Pulse Resp BP Pulse Ox 01/10/18 17:31 98.8 F 77 20 136/76 99 Temperature: Afebrile Blood Pressure: Normal Pulse: Regular Respiratory Rate: Normal Appearance: Positive for: Well-Appearing, Non-Toxic, Comfortable Pain Distress: None Mental Status: Positive for: Alert and Oriented X 3 - Systems Exam Head: Present: Atraumatic, Normocephalic Pupils: Present: PERRL Extroacular Muscles: Present: EOMI Conjunctiva: Present: Normal Mouth: Present: Moist Mucous Membranes Neck: Present: Normal Range of Motion Respiratory/Chest: Present: Clear to Auscultation, Good Air Exchange. No: Respiratory Distress, Accessory Muscle Use Cardiovascular: Present: Regular Rate and Rhythm, Normal S1, S2. No: Murmurs Abdomen: No: Tenderness, Distention, Peritoneal Signs, Rebound, Guarding Back: Present: Normal Inspection Upper Extremity: Present: Normal Inspection. No: Cyanosis, Edema Lower Extremity: Present: Normal Inspection. No: Edema Neurological: Present: GCS=15, CN II-XII Intact, Speech Normal, Motor Func Grossly Intact, Gait Normal Skin: Present: Warm, Dry, Normal Color. No: Rashes Psychiatric: Present: Alert, Oriented x 3, Normal Insight, Normal Concentration Medical Decision Making ED Course and Treatment: 01/10/18 17:52 Impression: A 72 year old female presents to the emergency department with a complaint of acute onset urinary incontinence and right lower quadrant abdominal pain. Plan: -- Abdomen/ Pelvis CT -- Urinalysis -- Labs -- Reassess and disposition Prior Visits: Notes and results from previous visits were reviewed. Progress Notes: 01/10/18 19:17 Patient remains comfortable. Urinalysis shows some white blood cells. Urine culture has been obtained. Patient is probably passed a kidney stone. We'll treat as nephrolithiasis with urinary tract infection. Follow-up with Dr. guzmán. - Lab Interpretations I have reviewed the lab results: Yes - RAD Interpretation Radiology Orders: 01/10/18 17:43 ABD & PELVIS W/O PO OR IV CONT [CT] Stat CT scan of the abdomen and pelvis is read by the radiologist shows multiple nephrolithiasis, otherwise no acute findings. Lactation Consultant: Radiologist - Scribe Statement The provider has reviewed the documentation as recorded by the Scribe Cheryle Shepard Provider Scribe Attestation: All medical record entries made by the Scribe were at my direction and personally dictated by me. I have reviewed the chart and agree that the record accurately reflects my personal performance of the history, physical exam, medical decision making, and the department course for this patient. I have also personally directed, reviewed, and agree with the discharge instructions and disposition. Disposition/Present on Arrival - Present on Arrival Any Indicators Present on Arrival: No History of DVT/PE: No History of Uncontrolled Diabetes: Yes Urinary Catheter: No History of Decub. Ulcer: No History Surgical Site Infection Following: None - Disposition Have Diagnosis and Disposition been Completed?: Yes Diagnosis: Nephrolithiasis, Urinary tract infection Disposition: HOME/ ROUTINE Disposition Time: 19:18 Patient Plan: Discharge Condition: GOOD Discharge Instructions (ExitCare): Urinary Tract Infections in Adults, Kidney Stones (DC) Prescriptions: Sulfamethoxazole/Trimethoprim [Bactrim DS 800 mg-160 mg] 1 tab PO BID #14 tab Forms: [employer] ([place])
[2018-01-10 17:56] VITALS: RESP 18
[2018-01-10 18:07] LABS: BASO # 0.03 K/mm3 (0.0-2.0); BASO % 0.4 % (0.0-3.0); EOS # 0.2 (0.0-0.7); GRAN # 5.42 (1.4-6.5); GRAN % 71.6 % (50.0-68.0); HEMOGLOBIN 13.4 g/dL (12.0-16.0); LYMPH # 1.5 (1.2-3.4); LYMPH % 19.4 % (22.0-35.0); MEAN CELL VOLUME 97.3 fl (80.0-105.0); MEAN CORPUSCULAR HEMOGLOBIN 32.4 pg (25.0-35.0); MEAN CORPUSCULAR HGB CONC 33.3 g/dl (31.0-37.0); MEAN PLATELET VOLUME 10.2 fl (7.0-11.0); MONO # 0.5 (0.1-0.6); MONO % 6.6 % (1.0-6.0); RBC 4.14 10^6/uL (3.5-6.1); RED CELL DISTRIBUTION WIDTH 13.7 % (11.5-14.5); WHITE BLOOD COUNT 7.6 10^3/ul (4.5-11.0)
[2018-01-10 18:13] LABS: ALB/GLOB RATIO 1.6 (1.1-1.8); ALBUMIN 4.3 g/dL (3.0-4.8); ALT/SGPT 25 U/L (7-56); AST/SGOT 18 U/L (14-36); BLOOD UREA NITROGEN 14 mg/dL (7-21); CALCIUM 9.2 mg/dL (8.4-10.5); GFR NON-AFRICAN AMERICAN > 60; LIPASE 19 U/L (23-300)
[2018-01-10 18:18] LABS: URINE BILIRUBIN NEGATIVE (NEGATIVE); URINE BLOOD TRACE-LYSED (NEGATIVE); URINE GLUCOSE (UA) NEGATIVE (NEGATIVE); URINE LEUKOCYTE ESTERASE NEGATIVE Leu/uL (NEGATIVE); URINE PROTEIN TRACE mg/dL (<30 mg/dL); URINE UROBILINOGEN 0.2 E.U./dL (<1 E.U./dL)
[2018-01-10 18:43] LABS: URINE APPEARANCE CLEAR (CLEAR); URINE COLOR YELLOW (YELLOW)
--- NOTE | 2018-01-10 19:06 | CT ---
Date of service: 01/10/2018 PROCEDURE: CT Abdomen and Pelvis without intravenous contrast HISTORY: right stone run COMPARISON: None. TECHNIQUE: Unenhanced. Neither IV nor oral contrast administered Radiation dose: Total exam DLP = 855.93 mGy-cm. This CT exam was performed using one or more of the following dose reduction techniques: Automated exposure control, adjustment of the mA and/or kV according to patient size, and/or use of iterative reconstruction technique. FINDINGS: LOWER THORAX: Unremarkable. LIVER: Unremarkable. No gross lesion or ductal dilatation. GALLBLADDER AND BILE DUCTS: The gallbladder is mildly distended but otherwise unremarkable. PANCREAS: Unremarkable. No gross lesion or ductal dilatation. SPLEEN: Unremarkable. ADRENALS: Unremarkable. No mass. KIDNEYS AND URETERS: Innumerable and bilateral nonobstructing calculi none larger than 3 mm. Simple cysts identified left kidney. Hyperdense cyst lower pole right kidney. None of the cysts 6 C12 mm in size. VASCULATURE: Unremarkable. No aortic aneurysm. Calcified nonaneurysmal abdominal aorta. BOWEL: Constipation without fecal impaction or obstruction. APPENDIX: Unremarkable. Normal appendix. PERITONEUM: Unremarkable. No free fluid. No free air. LYMPH NODES: Unremarkable. No enlarged lymph nodes. BLADDER: Unremarkable. REPRODUCTIVE: Unremarkable. BONES: No acute fracture. Scoliosis, secondary degenerative change at multiple levels. OTHER FINDINGS: None. IMPRESSION: Multiple nonobstructing bilateral renal calculi, the largest do not exceed 3 mm. Additional benign and/or incidental findings described above.
[2018-01-10] MEDS ORDERED: Tmp-Smz 800 mg-160 mg DS Tab PO STA (19:11)
[2018-01-10 19:54] VITALS: BP 163/83; PULSE 73; TEMP 98.6; O2SAT 96
== END 2018-01-10 19:40 | disposition home or self-care (01) ==
LOC: ED 17:20
DX: N20.0 Calculus of kidney (principal); N39.0 Urinary tract infection, site not specified

== ENCOUNTER 2018-01-23 20:25 | Inpatient (IN) | payer MEDICARE ==
[2018-01-23 20:33] VITALS: BMI 28.3
--- NOTE | 2018-01-23 21:43 | ED PDOC ---
Arrival/HPI - General Chief Complaint: Abdominal Pain Time Seen by Provider: 01/23/18 20:56 Historian: Patient - History of Present Illness Narrative History of Present Illness (Text): 01/23/18 21:39 72 year old female, whose past medical history includes hypertension diabetes, neuropathy, and CVA, presents to the emergency department with right sided abdominal pain, since 18:30 today. Patient states pain started after urination today. Patient states pain does not radiate. Patient denies any fevers, chills, headache, dizziness, chest pain, shortness of breath, cough, nausea, vomiting, diarrhea, back pain, neck pain, urinary/bowel changes, or any other complaint. Time/Duration: 1-3 hours Past Medical History - Provider Review Nursing Documentation Reviewed: Yes - Infectious Disease Hx of Infectious Diseases: None - Cardiac Hx Pacemaker: No - Pulmonary Hx Chronic Obstructive Pulmonary Disease (COPD): Yes - Neurological Hx Paralysis: No - HEENT Hx Deafness: Yes (NERVE DEAFNESS- B/L EARS) - Renal Hx Kidney Stones: Yes Other/Comment: MULTIPLE CYSTS ON KIDNEYS - Endocrine/Metabolic Hx Diabetes Mellitus Type 2: Yes - Hematological/Oncological Hx Blood Transfusions: No Hx Blood Transfusion Reaction: No - Integumentary Other/Comment: SKIN CA - Musculoskeletal/Rheumatological Hx Musculoskeletal Disorders: Yes - Gastrointestinal Hx Gastroesophageal Reflux: Yes - Genitourinary/Gynecological Other/Comment: SKIN CA - Psychiatric Hx Emotional Abuse: No Hx Physical Abuse: No Hx Substance Use: No - Surgical History Hx Orthopedic Surgery: Yes (LEFT WRIST, RT SHOULDER) Other/Comment: SKIN BIOPSY - Anesthesia Hx Anesthesia Reactions: No Hx Malignant Hyperthermia: No - Suicidal Assessment Feels Threatened In Home Enviroment: No Family/Social History - Physician Review Nursing Documentation Reviewed: Yes Family/Social History: No Known Family HX Smoking Status: Never Smoked Hx Alcohol Use: No Hx Substance Use: No Hx Substance Use Treatment: No Allergies/Home Meds Allergies/Adverse Reactions: Allergies bacitracin Allergy (Severe, Verified 01/23/18 20:33) REDNESS perfume Adverse Reaction (Severe, Verified 01/23/18 20:33) SHORTNESS OF BREATH TIDE DETERGENT Allergy (Severe, Uncoded 01/23/18 20:33) ITCHING/RASH Home Medications: Home Meds Medication Instructions Recorded Confirmed ALPRAZolam [Xanax] 0.5 mg PO HS 03/29/17 11/21/17 Albuterol HFA [Ventolin HFA 90 1 puff IH HS PRN 03/29/17 11/21/17 mcg/actuation (8 g)] Allopurinol [Zyloprim] 300 mg PO DAILY 03/29/17 11/21/17 Aspirin [Adult Low Dose Aspirin EC] 81 mg PO DAILY 03/29/17 11/21/17 Budesonide/Formoterol Fumarate 2 puff IH BID 03/29/17 11/21/17 [Symbicort] Bupropion HCl [Bupropion HCl Xl] 300 mg PO BID 03/29/17 11/21/17 Cholecalciferol [Vitamin D] 50,000 iu PO QWK 03/29/17 11/21/17 Esomeprazole Magnesium [Nexium] 40 mg PO DAILY 03/29/17 11/21/17 Ezetimibe [Zetia] 10 mg PO DAILY 03/29/17 11/21/17 Folic Acid 1 mg PO DAILY 03/29/17 11/21/17 Gabapentin [Neurontin] 300 mg PO BID 03/29/17 11/21/17 Glipizide [Glipizide ER] 2.5 mg PO DAILY 03/29/17 11/21/17 Mesalamine ER Cap [Pentasa] 2 tab PO QID 03/29/17 11/21/17 PARoxetine [Paxil] 2 tab PO BID 03/29/17 11/21/17 Potassium Chloride [Klor-Con 10] 10 meq PO BID 03/29/17 11/21/17 Quinapril HCl 10 mg PO DAILY 03/29/17 11/21/17 Tiotropium [Spiriva] 18 mcg IH DAILY 03/29/17 11/21/17 Carbidopa/Levodopa 1 tab PO BID 10/23/17 11/21/17 [Carbidopa-Levodopa 25-100 Tab] Dipyridamole 75 mg PO DAILY 10/23/17 11/21/17 Donepezil [Aricept] 10 mg PO HS 10/23/17 11/21/17 Gabapentin [Neurontin] 600 mg PO HS 10/23/17 11/21/17 Methotrexate 5 tab PO NICOLA 10/23/17 11/21/17 Cefadroxil [Duricef] 500 mg PO BID 11/21/17 11/21/17 Tylenol with Codeine #3 Tablet 1 tab PO Q4H PRN 11/21/17 11/21/17 Review of Systems - Physician Review All systems were reviewed & negative as marked: Yes - Review of Systems Constitutional: absent: Fevers, Night Sweats Respiratory: absent: SOB, Cough Cardiovascular: absent: Chest Pain Gastrointestinal: Abdominal Pain (right sided). absent: Diarrhea, Nausea, Vomiting Genitourinary Female: absent: Urine Output Changes Musculoskeletal: absent: Back Pain, Neck Pain Neurological: absent: Headache, Dizziness Physical Exam - Physical Exam Narrative Physical Exam (Text): 01/23/18 21:43 Gen: VS reviewed, alert, well developed, well nourished, nontoxic, mild dist ress. ENT: normal pharynx. Eye: EOMI, PERRL. Neck: no JVD, supple, no adenopathy. CV: regular rate, regular rhythm, no rubs, no murmur, no gallops, S1, S2, pulses equal and strong. Pulm: no distress, clear to auscultation, no wheeze, no rhonchi, breath sounds equal, no rales. Abd: questionable RLQ tenderness, no guarding, no rebound, no rigidity, normal bowel sounds. Ext: no edema. Skin: good color, no rash, no cyanosis. Psych: responds appropriately to questions, normal affect. Neuro: oriented x 3, CN2-12 intact grossly, motor intact, sensation intact. Vital Signs Reviewed: Yes Vital Signs Temp Pulse Resp BP Pulse Ox 01/23/18 20:37 98.0 F 68 20 134/67 98 Temperature: Afebrile Blood Pressure: Normal Pulse: Regular Respiratory Rate: Normal Appearance: Positive for: Well-Appearing, Non-Toxic, Comfortable Pain Distress: None Mental Status: Positive for: Alert and Oriented X 3 Medical Decision Making ED Course and Treatment: 01/23/18 21:44 Impression: 72 year old female presents with RLQ abdominal pain. Plan: -- CT ABD & Pelvis -- Labs -- Chest X-ray -- Urinalysis -- Reassess and disposition Prior Visits: Notes and results from previous visits were reviewed. Progress Notes: 01/24/18 05:[address] dotson. patient to be admitted for abnormal ekg suggestive of ischemia, chest pain free. Cardiology consult to Dr. Olivera. CT was done to investigate RLQ pain. It is possible that the patient's pain could be from a passed kidneu stone. There are other incidental findings on the CT a/p. Patient remained stable throughout ED course. 01/24/18 05:29 - RAD Interpretation Narrative RAD Interpretations (Text): 01/24/18 03:29 CT SCAN OF THE ABDOMEN AND PELVIS WITH CONTRAST. CLINICAL HISTORY: Abdominal pain. TECHNIQUE: Multiple axial and coronal CT images were obtained through the abdomen and pelvis after administration of intravenous contrast material. COMPARISON COMMENTS: Small sliding hiatal hernia. Mild cardiomegaly. 3 mm right renal nonobstructing stone. Unremarkable metallic hardware of the right hip. Mild hepatomegaly. Mild diffuse thickening of the bladder. The liver is of uniform attenuation without mass or defect. There is no intra or extrahepatic biliary ductal dilatation. The spleen is normal. The gallbladder is within normal limits. The pancreas is of normal contour and attenuation characteristics. There is no evidence of adrenal mass. Bilateral simple renal cysts with the largest measuring 1.3 cm. Both kidneys demonstrate prompt and equal nephrograms. The kidneys are normal in size, shape and configuration. There is no evidence of renal or ureteral mass. No ureteral calculi are identified. There is no hydroureter or hydronephrosis. No evidence for appendicitis. There is no bowel wall thickening. No evidence for small or large bowel obstruction. There is no evidence of abdominal ascites or lymphadenopathy. There is no evidence of intrinsic or extrinsic bladder mass. There is no pelvic ascites or lymphadenopathy. Images of the lung bases show no evidence of pleural or parenchymal mass. There are no pleural effusions. The bony structures are free of lytic or blastic lesions. IMPRESSION: Small sliding hiatal hernia. Mild cardiomegaly. 3 mm right renal nonobstructing stone. Unremarkable metallic hardware of the right hip. Mild hepatomegaly. Mild diffuse thickening of the bladder. Radiology Orders: 01/23/18 21:32 ABDOMEN & PELVIS [ABD & PELVIS IV CONTRAST ONLY] [CT] Stat CHEST PORTABLE [RAD] Stat Devops Engineer: Radiologist - EKG Interpretation EKG Interpretation (Text): 01/24/18 00:05 01.23.2018 at 2052: nsr at 66 bpm, nml qrs, nml axis, lateral t wave inversions concerning for ischemia, findings new when compared to old eg on 8.1.2018 Interpreted by ED Physician: Yes - Scribe Statement The provider has reviewed the documentation as recorded by the Kris Britton Provider Scribe Attestation: All medical record entries made by the Scribe were at my direction and personally dictated by me. I have reviewed the chart and agree that the record accurately reflects my personal performance of the history, physical exam, medical decision making, and the department course for this patient. I have also personally directed, reviewed, and agree with the discharge instructions and disposition. Disposition/Present on Arrival - Present on Arrival Any Indicators Present on Arrival: No History of DVT/PE: No History of Uncontrolled Diabetes: Yes Urinary Catheter: No History of Decub. Ulcer: No History Surgical Site Infection Following: None - Disposition Have Diagnosis and Disposition been Completed?: Yes Diagnosis: Abnormal EKG Disposition: HOSPITALIZED Disposition Time: 05:30 Patient Plan: Admission Condition: STABLE Referrals: Aureliano Johnson MD [Primary Care Provider] - Follow up with primary Forms: [employer] (Portuguese)
[2018-01-23 21:58] LABS: BASO # 0.02 K/mm3 (0.0-2.0); BASO % 0.3 % (0.0-3.0); EOS # 0.2 (0.0-0.7); EOS % 3.3 % (1.5-5.0); GRAN # 3.82 (1.4-6.5); GRAN % 57.7 % (50.0-68.0); HEMOGLOBIN 12.7 g/dL (12.0-16.0); LYMPH # 2.1 (1.2-3.4); LYMPH % 31.5 % (22.0-35.0); MEAN CELL VOLUME 97.1 fl (80.0-105.0); MEAN CORPUSCULAR HEMOGLOBIN 33.6 pg (25.0-35.0); MEAN CORPUSCULAR HGB CONC 34.6 g/dl (31.0-37.0); MEAN PLATELET VOLUME 11.2 fl (7.0-11.0); MONO # 0.5 (0.1-0.6); MONO % 7.2 % (1.0-6.0); RBC 3.78 10^6/uL (3.5-6.1); RED CELL DISTRIBUTION WIDTH 13.6 % (11.5-14.5); WHITE BLOOD COUNT 6.6 10^3/uL (4.5-11.0)
[2018-01-23 23:51] LABS: INR 0.97; PARTIAL THROMBOPLASTIN TIME 24.1 Seconds (25.1-36.5)
[2018-01-24 00:02] LABS: URINE BILIRUBIN NEGATIVE (NEGATIVE); URINE BLOOD NEGATIVE (NEGATIVE); URINE GLUCOSE (UA) NEGATIVE (NEGATIVE); URINE LEUKOCYTE ESTERASE NEGATIVE Leu/uL (NEGATIVE); URINE PROTEIN NEGATIVE mg/dL (<30 mg/dL); URINE UROBILINOGEN 0.2 E.U./dL (<1 E.U./dL)
[2018-01-24 00:03] LABS: URINE APPEARANCE CLEAR (CLEAR); URINE COLOR YELLOW (YELLOW)
[2018-01-24 01:42] LABS: ALB/GLOB RATIO 1.6 (1.1-1.8); ALBUMIN 3.9 g/dL (3.0-4.8); ALT/SGPT 19 U/L (7-56); AST/SGOT 37 U/L (14-36); BLOOD UREA NITROGEN 19 mg/dL (7-21); CALCIUM 8.9 mg/dL (8.4-10.5); GFR NON-AFRICAN AMERICAN > 60; LIPASE 125 U/L (23-300)
[2018-01-24] MEDS ORDERED: Iohexol 350 MG/100 ML VIAL ONE (01:47)
[2018-01-24 02:40] LABS: TROPONIN I < 0.01 ng/mL
[2018-01-24] MEDS ORDERED: Albuterol HFA 90 mcg/actuation (8 g) IH PRN (09:04)
--- NOTE | 2018-01-24 09:05 | RAD ---
Date of service: 01/23/2018 HISTORY: chest pain COMPARISON: 10/23/2017 FINDINGS: LUNGS: No active pulmonary disease. PLEURA: No significant pleural effusion identified, no pneumothorax apparent. CARDIOVASCULAR: No aortic atherosclerotic calcification present. Normal cardiac size. No pulmonary vascular congestion. OSSEOUS STRUCTURES: No significant abnormalities. VISUALIZED UPPER ABDOMEN: Normal. OTHER FINDINGS: None. IMPRESSION: No active disease.
[2018-01-24] MEDS ORDERED: Albuterol 0.083% Inhal Sol (2.5 mg/3 mL) UD IH PRN (09:25)
[2018-01-24] MEDS ORDERED: Ergocalciferol 50,000 Intl Units Cap PO SCH (09:30)
--- NOTE | 2018-01-24 09:36 | CT ---
Date of service: 01/24/2018 PROCEDURE: CT Abdomen and Pelvis without intravenous contrast HISTORY: RLQ pain COMPARISON: None. TECHNIQUE: Technique. Contrast dose: Radiation dose: Total exam DLP = 758.08 mGy-cm. This CT exam was performed using one or more of the following dose reduction techniques: Automated exposure control, adjustment of the mA and/or kV according to patient size, and/or use of iterative reconstruction technique. FINDINGS: LOWER THORAX: Unremarkable. Small sliding hiatal hernia. LIVER: Unremarkable. No gross lesion or ductal dilatation. GALLBLADDER AND BILE DUCTS: Unremarkable. PANCREAS: Unremarkable. No gross lesion or ductal dilatation. SPLEEN: Unremarkable. ADRENALS: Unremarkable. No mass. KIDNEYS AND URETERS: Bilateral renal cysts. Punctate calcifications in the lower pole the right kidney. No hydronephrosis. No solid mass. VASCULATURE: Unremarkable. No aortic aneurysm. No aortic atherosclerotic calcification or mural plaque present. BOWEL: Unremarkable. No obstruction. No gross mural thickening. APPENDIX: Unremarkable. Normal appendix. PERITONEUM: Unremarkable. No free fluid. No free air. LYMPH NODES: Unremarkable. No enlarged lymph nodes. BLADDER: Unremarkable. REPRODUCTIVE: Unremarkable. BONES: Right hip orthopedic hardware. OTHER FINDINGS: None. IMPRESSION: Small sliding hiatal hernia. Tiny bilateral renal cysts. Punctate calcifications lower pole right kidney.
[2018-01-24] MEDS ORDERED: Non Formulary Medication (Esomeprazole Magnesium [Nexium] 40 MG) PO SCH (10:00)
[2018-01-24] MEDS ORDERED: Cholecalciferol 1,000 INTLU TAB PO SCH (10:00)
[2018-01-24] MEDS ORDERED: Mesalamine ER Cap 500 MG PO SCH (10:00)
[2018-01-24] MEDS ORDERED: QUINAPRIL HCL 10 MG PO SCH (10:00)
[2018-01-24] MEDS ORDERED: Non Formulary Medication (Budesonide/Formoterol Fumarate [Symbicort 160-4.5 Mcg Inhaler] 2 IH SCH (10:00)
[2018-01-24] MEDS ORDERED: DIPYRIDAMOLE 75 MG PO SCH (10:00)
--- NOTE | 2018-01-24 10:15 | CP.PCM.HP ---
<Mani Reaves - Last Filed: 01/24/18 11:00> History of Present Illness - History of Present Illness History of Present Illness: 72 year old female with a past medical history notable for optic neuritis, ulcerative colitis, hiatal hernia, sleep apnea, COPD, Degenerative Joint Disease, psoriatic arthiritis, hypertension, strokes in May and November 2016 who presents with right sided abdominal pain with no vomiting or diarrhea. She also admits to a month of inability to void at socially appropriate times with increased urgency, but no dysuria. She reports no chest pain, nausea, diaphor esis, or shortness of breath. She states that yesterday she was walking ten blocks from her home to a grocery store and had to urinate so rushed the last few blocks to the grocery store and used the restroom successfully, but had to sit outside by the pharmacy waiting area because of the weakness she felt. She then was brought in by ambulance. In the ED she underwent CT of the abdomen and pelvis that showed a small sliding hiatal hernia, tiny bilateral renal cysts, punctate calcifications lower pole right kidney. EKG did show new T- wave inversions in Leads I, II, V5, V6 compared to the EKG performed on 10/23/2017. Troponins x 2 were negative. Cardiology was consulted Dr. Daniels. PMH: As above PSH: Multiple skin lesions removed, cervical polyps removed, broken left wrist in 1973, broken right hip Allergies: Perfume, Tide detergent, and bacitracin Social: Denies alcohol, tobacco, or illicit drug use Present on Admission - Present on Admission Any Indicators Present on Admission: No Review of Systems - Review of Systems All systems: reviewed and no additional remarkable complaints except (as per HPI) Past Patient History - Infectious Disease Hx of Infectious Diseases: None - Past Social History Smoking Status: Never Smoked - CARDIAC Hx Hypercholesterolemia: Yes Hx Hypertension: Yes Other/Comment: HYPERLIPIDEMIA - PULMONARY Hx Respiratory Disorders: Yes Hx Asthma: Yes Hx Chronic Obstructive Pulmonary Disease (COPD): Yes Hx Emphysema: Yes Hx Pneumonia: Yes Hx Sleep Apnea: Yes - NEUROLOGICAL HX Cerebrovascular Accident: Yes Hx Migraine: Yes - HEENT Hx HEENT Problems: Yes (GLASSES) Hx Deafness: Yes (NERVE DEAFNESS- B/L EARS) - RENAL Hx Kidney Stones: Yes Other/Comment: MULTIPLE CYSTS ON KIDNEYS - ENDOCRINE/METABOLIC Hx Diabetes Mellitus Type 2: Yes - HEMATOLOGICAL/ONCOLOGICAL Hx Blood Disorders: No - INTEGUMENTARY Hx Dermatological Problems: Yes Other/Comment: SKIN CA - MUSCULOSKELETAL/RHEUMATOLOGICAL Hx Musculoskeletal Disorders: Yes Hx Arthritis: Yes (BACK, LEGS, NECK) Hx Falls: Yes Hx Fractures: Yes (RIGHT HIP FRACTURE, LEFT WRIST, RT SHOULDER) Hx Herniated Disk: Yes Hx Unsteady Gait: Yes (AMBULATE WITH CANE) - GASTROINTESTINAL Hx Gastrointestinal Disorders: Yes (COLITIS) Hx Gastroesophageal Reflux: Yes - GENITOURINARY/GYNECOLOGICAL Hx Genitourinary Disorders: No - PSYCHIATRIC Hx Anxiety: Yes Hx Depression: Yes Hx Physical Abuse: No - SURGICAL HISTORY Hx Orthopedic Surgery: Yes (LEFT WRIST, RT SHOULDER, RIGHT HIP) Other/Comment: SKIN BIOPSY - ANESTHESIA Hx Anesthesia Reactions: No Hx Malignant Hyperthermia: No Meds Allergies/Adverse Reactions: Allergies Allergy/AdvReac Type Severity Reaction Status Date / Time bacitracin Allergy Severe REDNESS Verified 01/23/18 20:33 perfume AdvReac Severe SHORTNESS Verified 01/23/18 20:33 OF BREATH TIDE DETERGENT Allergy Severe ITCHING/MCKAY Uncoded 01/23/18 20:33 H Physical Exam - Constitutional Appears: Non-toxic, No Acute Distress - Head Exam Head Exam: ATRAUMATIC, NORMOCEPHALIC - Eye Exam Eye Exam: EOMI, Normal appearance - ENT Exam ENT Exam: Mucous Membranes Moist - Neck Exam Neck exam: Positive for: Normal Inspection - Respiratory Exam Respiratory Exam: Clear to Auscultation Bilateral, NORMAL BREATHING PATTERN. absent: Accessory Muscle Use - Cardiovascular Exam Cardiovascular Exam: RRR, +S1, +S2 - GI/Abdominal Exam GI & Abdominal Exam: Normal Bowel Sounds, Soft. absent: Rebound - Extremities Exam Extremities exam: Positive for: normal inspection. Negative for: calf tenderness, pedal edema - Neurological Exam Neurological exam: Alert, Oriented x3 - Psychiatric Exam Psychiatric exam: Normal Affect, Normal Mood - Skin Skin Exam: Dry, Intact, Normal Color, Warm Results - Vital Signs Recent Vital Signs: Last Vital Signs Temp 98.3 F 01/24/18 10:03 Pulse 59 L 01/24/18 10:03 Resp 18 01/24/18 10:03 BP 149/79 01/24/18 10:03 Pulse Ox 100 01/24/18 10:03 - Labs Result Diagrams: 01/23/18 21:50 01/23/18 22:49 Labs: Laboratory Results - last 24 hr 01/23/18 01/23/18 01/23/18 21:50 21:50 22:49 WBC 6.6 RBC 3.78 Hgb 12.7 Hct 36.7 MCV 97.1 MCH 33.6 MCHC 34.6 RDW 13.6 Plt Count 311 MPV 11.2 H Gran % 57.7 Lymph % (Auto) 31.5 Christian % (Auto) 7.2 H Eos % (Auto) 3.3 Baso % (Auto) 0.3 Gran # 3.82 Lymph # (Auto) 2.1 Christian # (Auto) 0.5 Eos # (Auto) 0.2 Baso # (Auto) 0.02 PT 11.0 INR 0.97 APTT 24.1 L Sodium Potassium Chloride Carbon Dioxide Anion Gap BUN Creatinine Est GFR ( Amer) Est GFR (Non-Af Amer) Random Glucose Calcium Total Bilirubin AST ALT Alkaline Phosphatase Troponin I Total Protein Albumin Globulin Albumin/Globulin Ratio Lipase Urine Color Yellow Urine Appearance Clear Urine pH 6.0 Ur Specific Mound >= 1.030 Urine Protein Negative Urine Glucose (UA) Negative Urine Ketones Trace H Urine Blood Negative Urine Nitrate Negative Urine Bilirubin Negative Urine Urobilinogen 0.2 Ur Leukocyte Esterase Negative 01/23/18 01/24/18 22:49 04:39 WBC RBC Hgb Hct MCV MCH MCHC RDW Plt Count MPV Gran % Lymph % (Auto) Christian % (Auto) Eos % (Auto) Baso % (Auto) Gran # Lymph # (Auto) Christian # (Auto) Eos # (Auto) Baso # (Auto) PT INR APTT Sodium 140 Potassium 4.0 Chloride 104 Carbon Dioxide 27 Anion Gap 13 BUN 19 Creatinine 0.5 L Est GFR ( Amer) > 60 Est GFR (Non-Af Amer) > 60 Random Glucose 79 Calcium 8.9 Total Bilirubin 0.2 AST 37 H D ALT 19 Alkaline Phosphatase 98 Troponin I < 0.01 < 0.01 Total Protein 6.3 Albumin 3.9 Globulin 2.4 Albumin/Globulin Ratio 1.6 Lipase 125 Urine Color Urine Appearance Urine pH Ur Specific [place] Urine Protein Urine Glucose (UA) Urine Ketones Urine Blood Urine Nitrate Urine Bilirubin Urine Urobilinogen Ur Leukocyte Esterase Assessment & Plan - Assessment and Plan (Free Text) Assessment: 72 year old female with intermittent urinary incontinence possibly secondary to passage of kidney stone who presented with atypical chest pain and new T-wave inversions observed on EKG. Cardiology consulted, Dr. Daniels, who has ordered an echocardiogram. Plan: 1) Atypical chest pain with new T-wave inversions - troponins x2 negative, third is pending - Echocardiogram ordered - Cardiology consulted, Dr. Daniels - Lipid panel, HgbA1c 1b) Abdominal pain - Small sliding hiatal hernia. Tiny bilateral renal cysts. Punctate calcifications lower pole right kidney. - Resolved at this time - Serial abdominal exams 2) Stroke - Continue with Dipyridamole - Aspirin 81 mg PO daily 3) GERD - Protonix 40 mg PO daily 4)Parkinson's disease - Carbidopa-Levodopa 25-100 BID - Donezpil 10 mg 5) Ulcerative colitis/Psoriatic arthritis - Mesalamine 5 mg QID - Methotrexate 5 mg every 6) DM II - Glipizide 2.5 PO daily 7) History of Uric acid Stones - Allopurinol 300 mg PO daily 8) COPD - Symbicort 2 puffs IH BID - Tiotropiuem 18 mcg Daily 9)Depression/anxiety - Paxil 40 mg Daily - Wellbutrin 300 mg PO daily 10) Hypertension - Quanapril 10 mg Daily Case reviewed and discussed with attending physician, Dr. Stock - Date & Time Date: 01/24/18 Time: 11:11 <Billy Stock S - Last Filed: 01/24/18 19:54> Results - Vital Signs Recent Vital Signs: Last Vital Signs Temp 98.2 F 01/24/18 16:13 Pulse 77 01/24/18 18:00 Resp 18 01/24/18 16:13 BP 141/87 01/24/18 16:13 Pulse Ox 98 01/24/18 16:13 - Labs Result Diagrams: 01/23/18 21:50 01/23/18 22:49 Labs: Laboratory Results - last 24 hr 01/23/18 01/23/18 01/23/18 21:50 21:50 22:49 WBC 6.6 RBC 3.78 Hgb 12.7 Hct 36.7 MCV 97.1 MCH 33.6 MCHC 34.6 RDW 13.6 Plt Count 311 MPV 11.2 H Gran % 57.7 Lymph % (Auto) 31.5 Christian % (Auto) 7.2 H Eos % (Auto) 3.3 Baso % (Auto) 0.3 Gran # 3.82 Lymph # (Auto) 2.1 Christian # (Auto) 0.5 Eos # (Auto) 0.2 Baso # (Auto) 0.02 PT 11.0 INR 0.97 APTT 24.1 L Sodium Potassium Chloride Carbon Dioxide Anion Gap BUN Creatinine Est GFR ( Amer) Est GFR (Non-Af Amer) POC Glucose (mg/dL) Random Glucose Hemoglobin A1c Calcium Total Bilirubin AST ALT Alkaline Phosphatase Troponin I Total Protein Albumin Globulin Albumin/Globulin Ratio Triglycerides Cholesterol LDL Cholesterol Direct HDL Cholesterol Lipase Urine Color Yellow Urine Appearance Clear Urine pH 6.0 Ur Specific [place] >= 1.030 Urine Protein Negative Urine Glucose (UA) Negative Urine Ketones Trace H Urine Blood Negative Urine Nitrate Negative Urine Bilirubin Negative Urine Urobilinogen 0.2 Ur Leukocyte Esterase Negative 01/23/18 01/24/18 01/24/18 22:49 04:39 10:30 WBC RBC Hgb Hct MCV MCH MCHC RDW Plt Count MPV Gran % Lymph % (Auto) Christian % (Auto) Eos % (Auto) Baso % (Auto) Gran # Lymph # (Auto) Christian # (Auto) Eos # (Auto) Baso # (Auto) PT INR APTT Sodium 140 Potassium 4.0 Chloride 104 Carbon Dioxide 27 Anion Gap 13 BUN 19 Creatinine 0.5 L Est GFR ( Amer) > 60 Est GFR (Non-Af Amer) > 60 POC Glucose (mg/dL) Random Glucose 79 Hemoglobin A1c Calcium 8.9 Total Bilirubin 0.2 AST 37 H D ALT 19 Alkaline Phosphatase 98 Troponin I < 0.01 < 0.01 < 0.01 Total Protein 6.3 Albumin 3.9 Globulin 2.4 Albumin/Globulin Ratio 1.6 Triglycerides Cholesterol LDL Cholesterol Direct HDL Cholesterol Lipase 125 Urine Color Urine Appearance Urine pH Ur Specific [place] Urine Protein Urine Glucose (UA) Urine Ketones Urine Blood Urine Nitrate Urine Bilirubin Urine Urobilinogen Ur Leukocyte Esterase 01/24/18 01/24/18 01/24/18 10:58 11:15 11:38 WBC RBC Hgb Hct MCV MCH MCHC RDW Plt Count MPV Gran % Lymph % (Auto) Christian % (Auto) Eos % (Auto) Baso % (Auto) Gran # Lymph # (Auto) Christian # (Auto) Eos # (Auto) Baso # (Auto) PT INR APTT Sodium Potassium Chloride Carbon Dioxide Anion Gap BUN Creatinine Est GFR ( Amer) Est GFR (Non-Af Amer) POC Glucose (mg/dL) 89 Random Glucose Hemoglobin A1c 5.6 Calcium Total Bilirubin AST ALT Alkaline Phosphatase Troponin I Total Protein Albumin Globulin Albumin/Globulin Ratio Triglycerides 143 Cholesterol 180 LDL Cholesterol Direct 116 HDL Cholesterol 52 Lipase Urine Color Urine Appearance Urine pH Ur Specific [place] Urine Protein Urine Glucose (UA) Urine Ketones Urine Blood Urine Nitrate Urine Bilirubin Urine Urobilinogen Ur Leukocyte Esterase 01/24/18 01/24/18 15:46 16:26 WBC RBC Hgb Hct MCV MCH MCHC RDW Plt Count MPV Gran % Lymph % (Auto) Christian % (Auto) Eos % (Auto) Baso % (Auto) Gran # Lymph # (Auto) Christian # (Auto) Eos # (Auto) Baso # (Auto) PT INR APTT Sodium Potassium Chloride Carbon Dioxide Anion Gap BUN Creatinine Est GFR ( Amer) Est GFR (Non-Af Amer) POC Glucose (mg/dL) 97 87 Random Glucose Hemoglobin A1c Calcium Total Bilirubin AST ALT Alkaline Phosphatase Troponin I Total Protein Albumin Globulin Albumin/Globulin Ratio Triglycerides Cholesterol LDL Cholesterol Direct HDL Cholesterol Lipase Urine Color Urine Appearance Urine pH Ur Specific [place] Urine Protein Urine Glucose (UA) Urine Ketones Urine Blood Urine Nitrate Urine Bilirubin Urine Urobilinogen Ur Leukocyte Esterase Assessment & Plan - Assessment and Plan (Free Text) Plan: Pt seen and examined. I have reviewed the note of the claim review medical director and agree with it. I have discussed the assessment and plan with the resident. I have reviewed the patient's labs and medications. Pt with abnromal EKG. She will need Cardiology evaluation. Trop has been negative. The DM-2 will be controlled by Glipizide. Her COPD is controlled with Symbicort and Tiotropiuem. She will continue with Paxil and Wellbutrin. HTN will be controlled with Quanapril. Abd pain on admission but has improve.d CT was reviewed.
[2018-01-24] MEDS: Pantoprazole 40 mg EC Tab PO SCH (10:19)
[2018-01-24] MEDS: Tiotropium 18 mcg Cap For Inhalation IH SCH (10:19)
[2018-01-24] MEDS: buPROPion 150 mg/24 Hours XL Tab PO SCH ×2 (10:21→17:27)
[2018-01-24] MEDS: QUINAPRIL HCL 10 MG PO SCH (10:21)
[2018-01-24] MEDS: Mesalamine ER Cap 500 MG PO SCH ×4 (10:21→21:07)
[2018-01-24] MEDS: Non Formulary Medication (Budesonide/Formoterol Fumarate [Symbicort 160-4.5 Mcg Inhaler] 2 IH SCH ×2 (10:24→17:29)
[2018-01-24] MEDS: GlipiZIDE 2.5 mg SR Tab PO SCH (10:24)
[2018-01-24] MEDS: Enoxaparin 40 mg Syringe SC SCH (11:27)
[2018-01-24 11:45] LABS: HDL CHOLESTEROL 52 mg/dL (29-60)
[2018-01-24 11:56] LABS: LDL CHOLESTEROL 116 mg/dL (0-129)
--- NOTE | 2018-01-24 12:56 | CARD ---
APPROVED REPORT Date of service: 01/23/2018 EKG Measurement Heart [id number] OR [id number] <Conclusion> Normal sinus rhythm Left axis deviation ST & T wave abnormality, consider anterolateral ischemia Abnormal ECG
--- NOTE | 2018-01-24 13:14 | CARD ---
APPROVED REPORT Date of service: 01/24/2018 EKG Measurement Heart [id number] <Conclusion> Normal sinus rhythm ST & Marked T wave abnormality, consider anterolateral ischemia Abnormal ECG
--- NOTE | 2018-01-24 18:38 | CON ---
DATE: 01/24/2018 INDICATIONS: Abnormal EKG. HISTORY OF PRESENT ILLNESS: This is a 72-year-old woman, who came to the emergency room because of right-sided abdominal and flank pain, possibly due to a renal stone. She was found to have an EKG, which was more abnormal than previously with deeper T-wave inversions in multiple leads. She was admitted to telemetry. Cardiac consultation was requested. She did not experience chest pain or shortness of breath. There was no orthopnea, PND, syncope, presyncope, lightheadedness, dizziness, or vertigo. No fever, chills, cough, sputum production, or hemoptysis. No nausea, vomiting, diarrhea, constipation, or melena. PAST MEDICAL HISTORY: Her past medical history is notable for renal stones in the past. She has had a fall with a right hip fracture. She was evaluated at that time. An echocardiogram demonstrated normal left ventricular function. She has a history of COPD, stroke, diabetes, peripheral neuropathy, hypertension, cerebrovascular disease, hyperlipidemia, COPD, sleep apnea, and cognitive dysfunction. There is no history of rheumatic fever, myocardial infarction, angina, congestive heart failure, TIA, or gout. MEDICATIONS: At the time of admission include aspirin, Aricept, bupropion, carbidopa/levodopa, dipyridamole, folic acid, glipizide, potassium chloride, methotrexate, gabapentin, Nexium, Paxil, Pentasa, quinapril, Spiriva, Symbicort, albuterol, vitamin D, Xanax, Zetia, and Zyloprim. ALLERGIES: SHE NOTES ALLERGIES TO BACITRACIN AND PERFUME. SOCIAL HISTORY: She lives at home. She is not very ambulatory. She does not smoke. She does not drink alcohol. FAMILY HISTORY: Noncontributory. REVIEW OF SYSTEMS: A 10-point review of systems is otherwise unremarkable, except as noted above. PHYSICAL EXAMINATION: GENERAL: She is a well-developed woman, sitting on a stretcher in the emergency room, in no acute distress. VITAL SIGNS: Heart rate is 67, sinus rhythm. She is afebrile. Blood pressure 140/66, respirations 16-20, O2 sat 97-98% on room air. HEENT: Exam reveals no neck vein distention, thyromegaly, or carotid bruits. Mucous membranes moist. Conjunctivae pink. NECK: Supple. LUNGS: Lung jones clear throughout. CARDIOVASCULAR: Examination of the heart revealed normal first and second heart sounds. PMI not palpable. ABDOMEN: Soft. Bowel sounds present. No mass, organomegaly, tenderness, rebound, guarding, CVA tenderness, or palpable abdominal aortic aneurysm. EXTREMITIES: Extremity exam revealed no cyanosis, clubbing, or edema. NEUROLOGICAL: She is awake, alert, and oriented. PSYCHIATRIC: Normal as to mood and affect. SKIN: Warm and dry. No rash or cellulitis. LABORATORY DATA AND IMAGING STUDIES: Chest x-ray revealed no active disease. An abdominol and pelvic CT scan was done, results are not yet available. EKG demonstrated regular sinus rhythm, left axis deviation, deeper T-wave inversions compared to a prior EKG including leads I, L, and V2-V6. There was also poor R-wave progression and a prolonged QT interval. ASSESSMENT AND PLAN: Lorelei Patton is a 72-year-old woman, who appears to have a recurrent passed renal stone, but has new EKG changes without significant cardiac symptoms including chest pain or shortness of breath. She is admitted to telemetry. We will repeat her EKG and cardiac enzymes. Her initial blood work is unremarkable including two negative troponins. Urinalysis is noted. We will continue her usual medications, which have been ordered. I will review her old records. We await the interpretation of the abdominal and pelvis CT. I will order an echocardiogram. She can be out of bed to chair. We will check stool for occult blood. She should be considered for nuclear stress testing, probably on an outpatient basis. I will follow along with you, make additional recommendations based on her clinical course. Han Daniels MD [facility]
--- NOTE | 2018-01-25 07:40 | CARD ---
APPROVED REPORT Date of service: 01/24/2018 EXAM: Two-dimensional and M-mode echocardiogram with Doppler and color Doppler. INDICATION Dyspnea Cardiac Disease: CAD COPD 2D DIMENSIONS Left Atrium (2D)4.1 (1.6-4.0cm)IVSd0.9 (0.7-1.1cm) LVDd4.8 (3.9-5.9cm)PWd0.9 (0.7-1.1cm) LVDs3.3 (2.5-4.0cm)FS (%) 31.7 % LVEF (%)59.5 (>50%) M-Mode DIMENSIONS Aortic Root3.00 (2.2-3.7cm)Aortic Cusp Exc.1.70 (1.5-2.0cm) Aortic Valve AoV Peak Jyeyfivx260.0cm/sAoV VTI40.4cmAO Peak GR.18mmHg AO Mean GR.10mmHg Mitral Valve MV E Mfuwyabi62.6cm/sMV A Clxfzqyv27.3cm/sE/A ratio0.7 TDI Lateral E' Peak V6.73cm/sMedial E' Peak V6.43cm/sE/Lateral E'10.2 E/Medial E'10.7 Pulmonary Valve PV Peak Areiduoz14.8cm/sPV Peak Grad.3mmHg Tricuspid Valve TR Peak Ldigxbnx655vg/sRAP FAIGSBUH03ihLoUS Peak Gr.8mmHg [id number] LEFT VENTRICLE The left ventricle is normal size. There is normal left ventricular wall thickness. The left ventricular function is normal. The left ventricular ejection fraction is within the normal range. There is normal LV segmental wall motion. RIGHT VENTRICLE The right ventricle is normal size. The right ventricular systolic function is normal. ATRIA The left atrium is mildly dilated. The right atrium size is normal. The interatrial septum is intact with no evidence for an atrial septal defect. AORTIC VALVE The aortic valve is mildly sclerotic. No aortic regurgitation is present. There is no aortic valvular stenosis. MITRAL VALVE The mitral valve is normal in structure. There is no mitral valve regurgitation noted. There is no mitral valve stenosis. TRICUSPID VALVE The tricuspid valve is normal in structure. There is no tricuspid valve regurgitation noted. PULMONIC VALVE The pulmonary valve is normal in structure. GREAT VESSELS The aortic root is normal in size. The IVC is normal in size and collapses >50% with inspiration. PERICARDIAL EFFUSION There is no pleural effusion. There is no pericardial effusion. <Conclusion> Mildly dilated LA. Otherwise normal study.
--- NOTE | 2018-01-25 09:02 | PN ---
DATE: 01/25/2018 SUBJECTIVE: The patient is seen lying in bed on 3R. She is currently comfortable. She states that her pain is much improved. She denies any chest pain. Her current medications remain albuterol inhaler, Aricept, Symbicort, Ecotrin, Glucotrol XL, Lovenox, methotrexate, Neurontin, Paxil, Pentasa, Persantine, Protonix, quinapril, Sinemet, Spiriva, Wellbutrin, Xanax, Zetia and Zyloprim. PHYSICAL EXAMINATION: GENERAL: She is an overweight, middle-aged woman. VITAL SIGNS: Her blood pressure is 154/84, the pulse is 66 and sinus, respirations are 16, she is afebrile. HEENT: No JVD. CHEST: A few scattered rhonchi. HEART: Soft systolic murmur at second left sternal border. ABDOMEN: Soft, mildly obese, nontender with bowel sounds. EXTREMITIES: No edema. DIAGNOSTIC DATA: Morning blood work is pending. IMPRESSION: 1. Recent flank pain, likely due to nephrolithiasis. 2. Abnormal electrocardiogram, more pronounced than prior tracings. 3. History of diabetes, hypertension and cerebrovascular disease. 4. Rest of problems as noted. RECOMMENDATIONS: At this time, no further inpatient cardiac workup is necessary. Her electrocardiogram was reviewed and was relatively normal study with no evidence of wall motion abnormalities. From a cardiac standpoint, she is stable for discharge home and an outpatient stress test will be arranged. We will be happy to follow as needed. Jerry Benson MD
[2018-01-25] MEDS: GlipiZIDE 2.5 mg SR Tab PO SCH (09:53)
[2018-01-25] MEDS: Enoxaparin 40 mg Syringe SC SCH (09:53)
[2018-01-25] MEDS: Mesalamine ER Cap 500 MG PO SCH ×4 (09:54→21:20)
[2018-01-25] MEDS: Tiotropium 18 mcg Cap For Inhalation IH SCH (09:55)
[2018-01-25] MEDS: buPROPion 150 mg/24 Hours XL Tab PO SCH ×2 (09:55→17:57)
[2018-01-25] MEDS: Pantoprazole 40 mg EC Tab PO SCH (09:55)
[2018-01-25] MEDS: Non Formulary Medication (Budesonide/Formoterol Fumarate [Symbicort 160-4.5 Mcg Inhaler] 2 IH SCH ×2 (09:56→18:27)
[2018-01-25] MEDS: QUINAPRIL HCL 10 MG PO SCH (09:56)
[2018-01-25 16:35] VITALS: RESP 20
--- NOTE | 2018-01-25 17:57 | PN ---
DATE: SUBJECTIVE: Patient is 72-year-old who says she was shopping, she suddenly got right lower quadrant pain. She thought it is gas, but pain persisted so she called ambulance. She was brought to emergency room. She was found to have incidental finding of abnormal EKG, so she was admitted on telemetry. Patient was evaluated by Dr. Marie and not that if any noticeable erythema or underline ischemia. Patient had urine had urine culture that has 10 to 15 thousand colony count. She also had a CT of the abdomen and pelvis done that shows small sliding hernia, bilateral renal cyst, and right lower pole nephrolithiasis. PHYSICAL EXAMINATION General: Otherwise, she is awake, alert, oriented, communicative. Vital Signs: She is afebrile, pulse 65, respiration 18, blood pressure 154/85. Lungs: Bilateral fair airflow. No rhonchi or crackle. Heart: S1 and S2 audible. Abdomen: Soft and nontender. No rebound. No guarding. Neurological: Patient is awake, alert, oriented, communicative, and able to move all extremities. LABORATORY DATA: Blood sugar is 73. Urine analysis is unremarkable. CT scan is also unremarkable except sliding hernia. Patient does admit that she has unstable gait and difficulty walking. ASSESSMENT AND PLAN: 1. Abdominal pain, etiology is still unclear. 2. History of severe osteoarthritis. 3. Neuropathy. 4. History of hypertension. 5. History of Parkinson's disease. PLAN: We will get physical therapy evaluation and we will followup her electrolyte. If therapy is , this patient is stable to be discharged and no high risk for fall, will be discharge home in a.m. otherwise, she might be a candidate for TCU depending on physical therapy evaluation. Ap Elaine MD
[2018-01-26 08:52] LABS: BASO # 0.03 K/mm3 (0.0-2.0); BASO % 0.4 % (0.0-3.0); EOS # 0.3 (0.0-0.7); EOS % 4.9 % (1.5-5.0); GRAN # 3.34 (1.4-6.5); GRAN % 48.1 % (50.0-68.0); HEMOGLOBIN 13.7 g/dL (12.0-16.0); LYMPH # 2.8 (1.2-3.4); LYMPH % 40.8 % (22.0-35.0); MEAN CELL VOLUME 97.4 fl (80.0-105.0); MEAN CORPUSCULAR HEMOGLOBIN 32.5 pg (25.0-35.0); MEAN CORPUSCULAR HGB CONC 33.3 g/dl (31.0-37.0); MEAN PLATELET VOLUME 9.5 fl (7.0-11.0); MONO # 0.4 (0.1-0.6); MONO % 5.8 % (1.0-6.0); RBC 4.22 10^6/uL (3.5-6.1); RED CELL DISTRIBUTION WIDTH 13.6 % (11.5-14.5); WHITE BLOOD COUNT 6.9 10^3/uL (4.5-11.0)
[2018-01-26 09:06] LABS: ALB/GLOB RATIO 1.4 (1.1-1.8); ALT/SGPT 20 U/L (7-56); AST/SGOT 24 U/L (14-36); BLOOD UREA NITROGEN 17 mg/dL (7-21); CALCIUM 9.1 mg/dL (8.4-10.5); GFR NON-AFRICAN AMERICAN > 60
[2018-01-26] MEDS: Non Formulary Medication (Budesonide/Formoterol Fumarate [Symbicort 160-4.5 Mcg Inhaler] 2 IH SCH ×2 (10:10→17:52)
[2018-01-26] MEDS: Enoxaparin 40 mg Syringe SC SCH (10:11)
[2018-01-26] MEDS: GlipiZIDE 2.5 mg SR Tab PO SCH (10:11)
[2018-01-26] MEDS: Mesalamine ER Cap 500 MG PO SCH ×4 (10:12→21:18)
[2018-01-26] MEDS: Pantoprazole 40 mg EC Tab PO SCH (10:12)
[2018-01-26] MEDS: Tiotropium 18 mcg Cap For Inhalation IH SCH (10:13)
[2018-01-26] MEDS: QUINAPRIL HCL 10 MG PO SCH (10:13)
[2018-01-26] MEDS: buPROPion 150 mg/24 Hours XL Tab PO SCH ×2 (10:13→17:55)
--- NOTE | 2018-01-26 12:06 | CP.PCM.PN ---
<Anthony Urbina - Last Filed: 01/26/18 12:07> Subjective - Date & Time of Evaluation Date of Evaluation: 01/26/18 Time of Evaluation: 12:05 - Subjective Subjective: Patient is doing well. Mild constipation. Tolerating diet. Walking with assistance. Objective - Vital Signs/Intake and Output Vital Signs (last 24 hours): Temp Pulse Resp BP Pulse Ox 97.4 F L 81 20 138/73 96 01/26/18 08:21 01/26/18 10:00 01/26/18 08:21 01/26/18 08:21 01/26/18 08:21 - Medications Medications: Current Medications Albuterol Sulfate (Albuterol 0.083% Inhal Keke (2.5 Mg/3 Ml) Ud) 2.5 mg IH ONCE PRN PRN Reason: Cough and congestion Allopurinol (Zyloprim) 300 mg PO DAILY [facility] Last Admin: 01/26/18 10:13 Dose: 300 mg Alprazolam (Xanax) 0.5 mg PO [facility] Last Admin: 01/25/18 21:20 Dose: 0.5 mg Aspirin (Ecotrin) 81 mg PO DAILY [facility] Last Admin: 01/26/18 10:11 Dose: 81 mg Bupropion HCl (Wellbutrin Xl) 150 mg PO BID [facility] Last Admin: 01/26/18 10:13 Dose: 150 mg Carbidopa/Levodopa (Sinemet) 1 tab PO BID [facility] Last Admin: 01/26/18 10:13 Dose: 1 tab Dipyridamole (Persantine) 75 mg PO DAILY [facility] Last Admin: 01/26/18 10:12 Dose: 75 mg Donepezil HCl (Aricept) 10 mg PO HS [facility] Last Admin: 01/25/18 21:20 Dose: 10 mg Ezetimibe (Zetia) 10 mg PO DAILY [facility] Last Admin: 01/26/18 10:13 Dose: 10 mg Enoxaparin Sodium (Lovenox) 40 mg SC DAILY [facility]; Protocol Last Admin: 01/26/18 10:11 Dose: 40 mg Ergocalciferol (Drisdol 50,000 Intl Units Cap) 1 cap PO Q7D [facility] Last Admin: 01/24/18 10:22 Dose: 1 cap Folic Acid (Folic Acid) 1 mg PO DAILY [facility] Last Admin: 01/26/18 10:11 Dose: 1 mg Gabapentin (Neurontin) 300 mg PO BID [facility]; Protocol Last Admin: 01/26/18 10:11 Dose: 300 mg Gabapentin (Neurontin) 600 mg PO HS [facility]; Protocol Last Admin: 01/25/18 21:20 Dose: 600 mg Glipizide (Glucotrol Xl) 2.5 mg PO DAILY [facility] Last Admin: 01/26/18 10:11 Dose: 2.5 mg Mesalamine (Pentasa) 500 mg PO QID [facility] Last Admin: 01/26/18 10:12 Dose: 500 mg Methotrexate (Methotrexate) 5 mg PO NICOLA [facility] Non-Formulary Medication (Budesonide/Formoterol Fumarate [Symbicort 160-4.5 Mcg Inhaler]) 2 puff IH BID [facility] Last Admin: 01/26/18 10:10 Dose: Not Given Non-Formulary Medication (Quinapril Hcl [Quinapril Hcl]) 10 mg PO DAILY [facility] Last Admin: 01/26/18 10:13 Dose: Not Given Pantoprazole Sodium (Protonix Ec Tab) 40 mg PO DAILY [facility] Last Admin: 01/26/18 10:12 Dose: 40 mg Paroxetine HCl (Paxil) 20 mg PO BID [facility] Last Admin: 01/26/18 10:12 Dose: 20 mg Tiotropium Belcher (Spiriva) 18 mcg IH DAILY [facility] Last Admin: 01/26/18 10:13 Dose: 18 mcg - Labs Labs: 01/26/18 08:30 01/26/18 08:30 PT 11.0 SECONDS (9.4-12.5) 01/23/18 21:50 INR 0.97 01/23/18 21:50 APTT 24.1 Seconds (25.1-36.5) L 01/23/18 21:50 - Constitutional Appears: Non-toxic, No Acute Distress - Eye Exam Eye Exam: Normal appearance - ENT Exam ENT Exam: Mucous Membranes Moist - Cardiovascular Exam Cardiovascular Exam: REGULAR RHYTHM, +S1, +S2 - GI/Abdominal Exam GI & Abdominal Exam: Soft, Normal Bowel Sounds. absent: Tenderness - Neurological Exam Neurological Exam: Alert, Awake, Oriented x3 - Psychiatric Exam Psychiatric exam: Normal Affect, Normal Mood - Skin Skin Exam: Dry, Normal Color Assessment and Plan - Assessment and Plan (Free Text) Assessment: #Ulcerative colitis #Abdominal pain #GERD #COPD #T2DM Plan: - Start bowel regimen - Patient will need colonoscopy soon. We will discuss with primary team about timing of procedure. - Continue current diet - Continue current medical management. <Bre Salazar V - Last Filed: 01/26/18 18:54> Objective - Vital Signs/Intake and Output Vital Signs (last 24 hours): Temp Pulse Resp BP Pulse Ox 97.9 F 75 20 121/78 96 01/26/18 16:41 01/26/18 16:41 01/26/18 16:41 01/26/18 16:41 01/26/18 16:41 - Medications Medications: Current Medications Albuterol Sulfate (Albuterol 0.083% Inhal Keke (2.5 Mg/3 Ml) Ud) 2.5 mg IH ONCE PRN PRN Reason: Cough and congestion Allopurinol (Zyloprim) 300 mg PO DAILY [facility] Last Admin: 01/26/18 10:13 Dose: 300 mg Alprazolam (Xanax) 0.5 mg PO [facility] Last Admin: 01/25/18 21:20 Dose: 0.5 mg Aspirin (Ecotrin) 81 mg PO DAILY [facility] Last Admin: 01/26/18 10:11 Dose: 81 mg Bupropion HCl (Wellbutrin Xl) 150 mg PO BID [facility] Last Admin: 01/26/18 17:55 Dose: 150 mg Carbidopa/Levodopa (Sinemet) 1 tab PO BID [facility] Last Admin: 01/26/18 17:55 Dose: 1 tab Dipyridamole (Persantine) 75 mg PO DAILY [facility] Last Admin: 01/26/18 10:12 Dose: 75 mg Donepezil HCl (Aricept) 10 mg PO HS [facility] Last Admin: 01/25/18 21:20 Dose: 10 mg Ezetimibe (Zetia) 10 mg PO DAILY [facility] Last Admin: 01/26/18 10:13 Dose: 10 mg Enoxaparin Sodium (Lovenox) 40 mg SC DAILY [facility]; Protocol Last Admin: 01/26/18 10:11 Dose: 40 mg Ergocalciferol (Drisdol 50,000 Intl Units Cap) 1 cap PO Q7D [facility] Last Admin: 01/24/18 10:22 Dose: 1 cap Folic Acid (Folic Acid) 1 mg PO DAILY [facility] Last Admin: 01/26/18 10:11 Dose: 1 mg Gabapentin (Neurontin) 300 mg PO BID [facility]; Protocol Last Admin: 01/26/18 17:54 Dose: 300 mg Gabapentin (Neurontin) 600 mg PO HS [facility]; Protocol Last Admin: 01/25/18 21:20 Dose: 600 mg Glipizide (Glucotrol Xl) 2.5 mg PO DAILY [facility] Last Admin: 01/26/18 10:11 Dose: 2.5 mg Mesalamine (Pentasa) 500 mg PO QID [facility] Last Admin: 01/26/18 17:55 Dose: 500 mg Methotrexate (Methotrexate) 5 mg PO NICOLA [facility] Non-Formulary Medication (Budesonide/Formoterol Fumarate [Symbicort 160-4.5 Mcg Inhaler]) 2 puff IH BID [facility] Last Admin: 01/26/18 17:52 Dose: Not Given Non-Formulary Medication (Quinapril Hcl [Quinapril Hcl]) 10 mg PO DAILY [facility] Last Admin: 01/26/18 10:13 Dose: Not Given Pantoprazole Sodium (Protonix Ec Tab) 40 mg PO DAILY [facility] Last Admin: 01/26/18 10:12 Dose: 40 mg Paroxetine HCl (Paxil) 20 mg PO BID [facility] Last Admin: 01/26/18 18:02 Dose: 20 mg Polyethylene Glycol (Miralax) 17 gm PO BID [facility] Last Admin: 01/26/18 17:54 Dose: 17 gm Tiotropium Belcher (Spiriva) 18 mcg IH DAILY [facility] Last Admin: 01/26/18 10:13 Dose: 18 mcg - Labs Labs: 01/26/18 08:30 01/26/18 08:30 PT 11.0 SECONDS (9.4-12.5) 01/23/18 21:50 INR 0.97 01/23/18 21:50 APTT 24.1 Seconds (25.1-36.5) L 01/23/18 21:50 Attending/Attestation - Attestation I have personally seen and examined this patient.: Yes I have fully participated in the care of the patient.: Yes I have reviewed all pertinent clinical information, including history, physical exam and plan: Yes Notes (Text): This is an addendum to GI progress report dictated by the GI Fellow.The patient was seen and examined earlier. Medical records, lab studies, imagings were reviewed. Last hours events reviewed. Agreed with the above treatment plan as outlined in GI Fellow 's notes with the addition of the following Tolerating diet Patient still complains of mild right side abdominal discomfort Start the patient on miralax for constipation Planned for transfer to TCU Would benefit from early colonoscopic evaluation 01/26/18 18:52
[2018-01-26] MEDS: POLYETHYLENE GLYCOL 3350 17 GM/Dose PACKET PO SCH (17:54)
--- NOTE | 2018-01-26 19:52 | PN ---
DATE: 01/26/2018 SUBJECTIVE: The patient is a 72-year-old, seen and examined, sitting in chair, still has a right lower quadrant discomfort. Did have bowel movement yesterday. She had Physical Therapy evaluation done. She is unstable to walk. She was evaluated by physical therapist. Recommended for TCU. This patient lives by herself, is not safe discharge. PHYSICAL EXAMINATION GENERAL: She is awake, alert, oriented and able to communicate. VITAL SIGNS: She is afebrile, pulse 65, respirations 20, blood pressure 138/73. LUNGS: Bilateral fair airflow. No rhonchi or crackles. HEART: S1, S2 audible. ABDOMEN: Soft, nontender. No rebound. No guarding. NEUROLOGICAL: The patient is awake, alert, oriented, and communicative. Moves all extremities. LABORATORY DATA: WBC is 6.9, hemoglobin 13.7, hematocrit 41, and platelets 237. Chemistry: Sodium 140, potassium 3.9, chloride 103, CO2 28, BUN 17, creatinine 0.5 and blood sugar of 104. Urine cultures are negative. ASSESSMENT AND PLAN: 1. Abdominal pain, etiology still not clear, probably constipation or gas pain. 2. Unstable gait. 3. Abnormal EKG with no evidence of ischemia. 4. History of osteoarthritis. 5. Neuropathy. 6. History of Parkinson's disease. 7. History of hypertension. PLAN: The patient is unstable and high risk for fall. We will request for TCU evaluation, if accepted, can be transferred to TCU. Ap Elaine MD
[2018-01-27 08:04] VITALS: BP 130/76; PULSE 64; TEMP 97.4; O2SAT 98
--- NOTE | 2018-01-27 09:20 | CON ---
DATE: 01/25/2018 This patient was seen and evaluated earlier today. REASON FOR CONSULTATION: Right lower quadrant abdominal pain. HISTORY OF PRESENT ILLNESS: This 72-year-old patient well known to our practice with a past medical history of ulcerative colitis, gastroparesis and gastroesophageal reflux disease, admitted with shortness of breath, right lower quadrant abdominal discomfort and right-sided abdominal pain. The patient was found to have abnormalities in the EKG, admitted for further evaluation of the abdominal pain and the EKG changes. The patient has a history of constipation, now she says it has been better. She is to be on MiraLax only p.r.n. basis she was taking it. PAST MEDICAL HISTORY: Other past medical history includes optic neuritis, obstructive sleep apnea, COPD, degenerative joint disease, psoriatic arthritis, hypertension, status post CVA. ALLERGIES: SHE IS ALLERGIC TO DETERGENT, BACITRACIN AND PERFUMES. SOCIAL HISTORY: Denies smoking or alcohol. REVIEW OF SYSTEMS: Positive as above. Other systems are reviewed. PHYSICAL EXAMINATION: GENERAL: The patient is lying on the bed, not in acute distress. VITAL SIGN: Temperature 98.5, pulse 68, blood pressure 136/85, respirations 20, O2 saturation 95%. HEENT: Atraumatic. Anicteric. NECK: Supple. HEART: S1 and S2 heard. LUNGS: Bilateral air entry present. ABDOMEN: Soft. There is no obvious . EXTREMITIES: No cyanosis, no clubbing. NEUROLOGIC: Alert, oriented. Moves all extremities. LABORATORY DATA: Hemoglobin 12.7, hematocrit 36.7, WBC 6.6, platelets 311. Chemistry is essentially unremarkable. CT scan of the abdomen and pelvis done on admission was reviewed. It was reported only slight hernia and renal cyst. of the rectum; once again, there is a large amount of stool present. IMPRESSION: 1. Differential diagnosis of the right-sided abdominal pain should include renal colic, ureteric colic. 2. The patient has colitis less likely. Exacerbation of the colitis to be considered; however, there are no inflammatory signs noticed. 3. Constipation. 4. Other comorbidities include diabetes mellitus, status post cerebrovascular accident, abnormal EKG, being followed by Cardiology. RECOMMENDATIONS: Clinical monitoring and elective colonoscopic evaluation and stool softeners. Thank you very much for allowing us to participate in the care of the patient. Bre Salazar MD
[2018-01-27] MEDS: buPROPion 150 mg/24 Hours XL Tab PO SCH (09:49)
[2018-01-27] MEDS: Pantoprazole 40 mg EC Tab PO SCH (09:49)
[2018-01-27] MEDS: Mesalamine ER Cap 500 MG PO SCH ×2 (09:49→13:52)
[2018-01-27] MEDS: POLYETHYLENE GLYCOL 3350 17 GM/Dose PACKET PO SCH (09:50)
[2018-01-27] MEDS: Enoxaparin 40 mg Syringe SC SCH (09:50)
[2018-01-27] MEDS: GlipiZIDE 2.5 mg SR Tab PO SCH (09:50)
[2018-01-27] MEDS: Tiotropium 18 mcg Cap For Inhalation IH SCH (09:50)
[2018-01-27] MEDS: Non Formulary Medication (Budesonide/Formoterol Fumarate [Symbicort 160-4.5 Mcg Inhaler] 2 IH SCH (09:59)
[2018-01-27] MEDS: QUINAPRIL HCL 10 MG PO SCH (10:00)
--- NOTE | 2018-01-27 11:02 | CP.PCM.PN ---
<Della Albarado - Last Filed: 01/27/18 11:09> Subjective - Date & Time of Evaluation Date of Evaluation: 01/27/18 Time of Evaluation: 10:52 - Subjective Subjective: Gastroenterology Fellow/PGY6 Progress Note Patient notes improving intermittent right lower abdominal pain. Denies abdominal pain today. Tolerating diet. Notes bowel movement yesterday. A 12- point review of systems negative except for as above. Objective - Vital Signs/Intake and Output Vital Signs (last 24 hours): Temp Pulse Resp BP Pulse Ox 97.4 F L 64 20 130/76 98 01/27/18 08:12 01/27/18 08:12 01/27/18 08:12 01/27/18 08:12 01/27/18 08:12 Intake and Output: 01/27/18 01/27/18 06:59 18:59 Intake Total 180 Balance 180 - Medications Medications: Current Medications Albuterol Sulfate (Albuterol 0.083% Inhal Keke (2.5 Mg/3 Ml) Ud) 2.5 mg IH ONCE PRN PRN Reason: Cough and congestion Allopurinol (Zyloprim) 300 mg PO DAILY [facility] Last Admin: 01/27/18 09:49 Dose: 300 mg Alprazolam (Xanax) 0.5 mg PO HS [facility] Last Admin: 01/26/18 21:18 Dose: 0.5 mg Aspirin (Ecotrin) 81 mg PO DAILY [facility] Last Admin: 01/27/18 09:49 Dose: 81 mg Bupropion HCl (Wellbutrin Xl) 150 mg PO BID [facility] Last Admin: 01/27/18 09:49 Dose: 150 mg Carbidopa/Levodopa (Sinemet) 1 tab PO BID [facility] Last Admin: 01/27/18 09:49 Dose: 1 tab Dipyridamole (Persantine) 75 mg PO DAILY [facility] Last Admin: 01/27/18 09:49 Dose: 75 mg Donepezil HCl (Aricept) 10 mg PO HS [facility] Last Admin: 01/26/18 21:18 Dose: 10 mg Ezetimibe (Zetia) 10 mg PO DAILY [facility] Last Admin: 01/27/18 09:49 Dose: 10 mg Enoxaparin Sodium (Lovenox) 40 mg SC DAILY [facility]; Protocol Last Admin: 01/27/18 09:50 Dose: 40 mg Ergocalciferol (Drisdol 50,000 Intl Units Cap) 1 cap PO Q7D [facility] Last Admin: 01/24/18 10:22 Dose: 1 cap Folic Acid (Folic Acid) 1 mg PO DAILY [facility] Last Admin: 01/27/18 10:00 Dose: 1 mg Gabapentin (Neurontin) 300 mg PO BID [facility]; Protocol Last Admin: 01/27/18 09:49 Dose: 300 mg Gabapentin (Neurontin) 600 mg PO HS [facility]; Protocol Last Admin: 01/26/18 21:18 Dose: 600 mg Glipizide (Glucotrol Xl) 2.5 mg PO DAILY [facility] Last Admin: 01/27/18 09:50 Dose: 2.5 mg Mesalamine (Pentasa) 500 mg PO QID [facility] Last Admin: 01/27/18 09:49 Dose: 500 mg Methotrexate (Methotrexate) 5 mg PO NICOLA [facility] Non-Formulary Medication (Budesonide/Formoterol Fumarate [Symbicort 160-4.5 Mcg Inhaler]) 2 puff IH BID [facility] Last Admin: 01/27/18 09:59 Dose: Not Given Non-Formulary Medication (Quinapril Hcl [Quinapril Hcl]) 10 mg PO DAILY [facility] Last Admin: 01/27/18 10:00 Dose: Not Given Pantoprazole Sodium (Protonix Ec Tab) 40 mg PO DAILY [facility] Last Admin: 01/27/18 09:49 Dose: 40 mg Paroxetine HCl (Paxil) 20 mg PO BID [facility] Last Admin: 01/27/18 09:50 Dose: 20 mg Polyethylene Glycol (Miralax) 17 gm PO BID [facility] Last Admin: 01/27/18 09:50 Dose: [address] (Spiriva) 18 mcg IH DAILY [facility] Last Admin: 01/27/18 09:50 Dose: 18 mcg - Labs Labs: 01/26/18 08:30 01/26/18 08:30 PT 11.0 SECONDS (9.4-12.5) 01/23/18 21:50 INR 0.97 01/23/18 21:50 APTT 24.1 Seconds (25.1-36.5) L 01/23/18 21:50 - Constitutional Appears: Non-toxic, No Acute Distress - Head Exam Head Exam: ATRAUMATIC, NORMOCEPHALIC - Eye Exam Eye Exam: EOMI, PERRL. absent: Scleral icterus Pupil Exam: PERRL. absent: Miosis, Mydriatic - ENT Exam ENT Exam: Mucous Membranes Moist, Normal Oropharynx - Neck Exam Neck Exam: Full ROM, Normal Inspection - Respiratory Exam Respiratory Exam: Clear to Ausculation Bilateral. absent: Rales, Rhonchi, Wheezes - Cardiovascular Exam Cardiovascular Exam: RRR, +S1, +S2. absent: Gallop, Rubs - GI/Abdominal Exam GI & Abdominal Exam: Soft, Normal Bowel Sounds. absent: Distended, Firm, Guarding, Rigid, Tenderness, Mass, Organomegaly, Rebound - Extremities Exam Extremities Exam: Normal Inspection. absent: Pedal Edema - Neurological Exam Neurological Exam: Alert, Awake - Psychiatric Exam Psychiatric exam: Normal Affect, Normal Mood - Skin Skin Exam: Dry, Intact, Normal Color, Warm Assessment and Plan - Assessment and Plan (Free Text) Assessment: 72 year old female with Ulcerative colitis(on Pentasa), COPD, Diabetes, and GERD presenting with abdominal pain. Active treatment of improving right-sided abdominal pain and constipation. Colonoscopy 08/2016 with normal mucosa on endoscopic evaluation, no active inflammation/dysplasia on surveillance biopsies, diminutive rectal hyperplastic polyp, and small internal hemorrhoids. EGD 02/2015 with H. pylori negative gastritis. Plan: -continue Miralax BID -tolerating diet -improving abdominal pain -continue Pentasa 500mg QID -will benefit from early colonoscopy evaluation -will determine timing based on plan for transfer to TCU <Bre Salazar V - Last Filed: 01/27/18 23:56> Objective - Vital Signs/Intake and Output Vital Signs (last 24 hours): Temp Pulse Resp BP Pulse Ox 97.4 F L 64 20 130/76 98 01/27/18 08:12 01/27/18 08:12 01/27/18 08:12 01/27/18 08:12 01/27/18 08:12 Intake and Output: 01/27/18 01/28/18 18:59 06:59 Intake Total 180 Balance 180 - Labs Labs: 01/26/18 08:30 01/26/18 08:30 PT 11.0 SECONDS (9.4-12.5) 01/23/18 21:50 INR 0.97 01/23/18 21:50 APTT 24.1 Seconds (25.1-36.5) L 01/23/18 21:50 Attending/Attestation - Attestation I have personally seen and examined this patient.: Yes I have fully participated in the care of the patient.: Yes I have reviewed all pertinent clinical information, including history, physical exam and plan: Yes Notes (Text): p 01/27/18 23:56
--- NOTE | 2018-01-27 11:29 | CP.PCM.DIS ---
<Mani Reaves - Last Filed: 01/27/18 16:55> Provider - Provider Date of Admission: 01/24/18 05:31 Attending physician: Billy Stock MD Primary care physician: Aureliano Johnson MD Consults: Dr. Frances Salazar Time Spent in preparation of Discharge (in minutes): 35 Hospital Course - Lab Results Lab Results: Micro Results 01/23/18 22:49 Urine,Clean Catch Urine Culture - Final 10-50,000 CFU/ML. MULTIPLE SPECIES. PROBABLE CONTAMINATION. Most Recent Lab Values WBC 6.9 10^3/uL (4.5-11.0) 01/26/18 08:30 RBC 4.22 10^6/uL (3.5-6.1) 01/26/18 08:30 Hgb 13.7 g/dL (12.0-16.0) 01/26/18 08:30 Hct 41.1 % (36.0-48.0) 01/26/18 08:30 MCV 97.4 fl (80.0-105.0) 01/26/18 08:30 MCH 32.5 pg (25.0-35.0) 01/26/18 08:30 MCHC 33.3 g/dl (31.0-37.0) 01/26/18 08:30 RDW 13.6 % (11.5-14.5) 01/26/18 08:30 Plt Count 237 10^3/uL (120.0-450.0) 01/26/18 08:30 MPV 9.5 fl (7.0-11.0) 01/26/18 08:30 Gran % 48.1 % (50.0-68.0) L 01/26/18 08:30 Lymph % (Auto) 40.8 % (22.0-35.0) H 01/26/18 08:30 [place]ansom % (Auto) 5.8 % (1.0-6.0) 01/26/18 08:30 Eos % (Auto) 4.9 % (1.5-5.0) 01/26/18 08:30 Baso % (Auto) 0.4 % (0.0-3.0) 01/26/18 08:30 Gran # 3.34 (1.4-6.5) 01/26/18 08:30 Lymph # (Auto) 2.8 (1.2-3.4) 01/26/18 08:30 Ransom # (Auto) 0.4 (0.1-0.6) 01/26/18 08:30 Eos # (Auto) 0.3 (0.0-0.7) 01/26/18 08:30 Baso # (Auto) 0.03 K/mm3 (0.0-2.0) 01/26/18 08:30 PT 11.0 SECONDS (9.4-12.5) 01/23/18 21:50 INR 0.97 01/23/18 21:50 APTT 24.1 Seconds (25.1-36.5) L 01/23/18 21:50 Sodium 140 mmol/L (132-148) 01/26/18 08:30 Potassium 3.9 mmol/L (3.6-5.0) 01/26/18 08:30 Chloride 103 mmol/L (98-107) 01/26/18 08:30 Carbon Dioxide 28 mmol/L (21-33) 01/26/18 08:30 Anion Gap 13 (10-20) 01/26/18 08:30 BUN 17 mg/dL (7-21) 01/26/18 08:30 Creatinine 0.5 mg/dl (0.7-1.2) L 01/26/18 08:30 Est GFR ( Amer) > 60 01/26/18 08:30 Est GFR (Non-Af Amer) > 60 01/26/18 08:30 POC Glucose (mg/dL) 86 mg/dL (65-110) 01/27/18 07:13 Random Glucose 97 mg/dL (70-110) 01/26/18 08:30 Hemoglobin A1c 5.6 % (4.2-6.5) 01/24/18 10:58 Calcium 9.1 mg/dL (8.4-10.5) 01/26/18 08:30 Total Bilirubin 0.4 mg/dL (0.2-1.3) 01/26/18 08:30 AST 24 U/L (14-36) 01/26/18 08:30 ALT 20 U/L (7-56) 01/26/18 08:30 Alkaline Phosphatase 89 U/L (38-126) 01/26/18 08:30 Troponin I < 0.01 ng/mL 01/24/18 10:30 Total Protein 6.8 g/dL (5.8-8.3) 01/26/18 08:30 Albumin 4.0 g/dL (3.0-4.8) 01/26/18 08:30 Globulin 2.8 gm/dL 01/26/18 08:30 Albumin/Globulin Ratio 1.4 (1.1-1.8) 01/26/18 08:30 Triglycerides 143 mg/dL (35-160) 01/24/18 11:15 Cholesterol 180 mg/dL (130-200) 01/24/18 11:15 LDL Cholesterol Direct 116 mg/dL (0-129) 01/24/18 11:15 HDL Cholesterol 52 mg/dL (29-60) 01/24/18 11:15 Lipase 125 U/L (23-300) 01/23/18 22:49 Urine Color Yellow (YELLOW) 01/23/18 22:49 Urine Appearance Clear (CLEAR) 01/23/18 22:49 Urine pH 6.0 (4.7-8.0) 01/23/18 22:49 Ur Specific [place] >= 1.030 (1.005-1.035) 01/23/18 22:49 Urine Protein Negative mg/dL (<30 mg/dL) 01/23/18 22:49 Urine Glucose (UA) Negative mg/dL (NEGATIVE) 01/23/18 22:49 Urine Ketones Trace mg/dL (NEGATIVE) H 01/23/18 22:49 Urine Blood Negative (NEGATIVE) 01/23/18 22:49 Urine Nitrate Negative (NEGATIVE) 01/23/18 22:49 Urine Bilirubin Negative (NEGATIVE) 01/23/18 22:49 Urine Urobilinogen 0.2 E.U./dL (<1 E.U./dL) 01/23/18 22:49 Ur Leukocyte Esterase Negative Charli/uL (NEGATIVE) 01/23/18 22:49 - Hospital Course Hospital Course: 72 year old female with a past medical history notable for optic neuritis, ulcerative colitis, hiatal hernia, sleep apnea, COPD, Degenerative Joint Disease, psoriatic arthiritis, hypertension, strokes in May and November 2016 who presents with right sided abdominal pain with no vomiting or diarrhea. She also admits to a month of inability to void at socially appropriate times with increased urgency, but no dysuria. She reports no chest pain, nausea, albina phoresis, or shortness of breath. She states that yesterday she was walking ten blocks from her home to a grocery store and had to urinate so rushed the last few blocks to the grocery store and used the restroom successfully, but had to sit outside by the pharmacy waiting area because of the weakness she felt. She then was brought in by ambulance. In the ED she underwent CT of the abdomen and pelvis that showed a small sliding hiatal hernia, tiny bilateral renal cysts, punctate calcifications lower pole right kidney. EKG did show new T- wave inversions in Leads I, II, V5, V6 compared to the EKG performed on 10/23/2017. Troponins x 2 were negative. Cardiology was consulted Dr. Daniels. An echocardiogram was performed that showed no abnormalities aside from a mildly dilated left atrium. The patient's abdominal pain improved. Physical therapy recommended TCU for the patient's gait rehabilitation. - Date & Time of H&P Date of H&P: 01/27/18 Time of H&P: 11:49 Discharge Exam - Head Exam Head Exam: ATRAUMATIC, NORMOCEPHALIC - Eye Exam Eye Exam: EOMI, Normal appearance - ENT Exam ENT Exam: Mucous Membranes Moist - Neck Exam Neck exam: Normal Inspection - Respiratory Exam Respiratory Exam: Clear to PA & Lateral, NORMAL BREATHING PATTERN. absent: Accessory Muscle Use - Cardiovascular Exam Cardiovascular Exam: RRR, +S1, +S2 - GI/Abdominal Exam GI & Abdominal Exam: Normal Bowel Sounds - Extremities Exam Extremities exam: normal inspection - Back Exam Back exam: absent: CVA tenderness (L), CVA tenderness (R) - Neurological Exam Neurological exam: Alert, Oriented x3 - Psychiatric Exam Psychiatric exam: Normal Affect, Normal Mood - Skin Skin Exam: Dry, Intact, Normal Color, Warm Discharge Plan - Follow Up Plan Condition: STABLE Disposition: REHAB FACILITY/REHAB UNIT Instructions: Acute Abdomen (Belly Pain), Adult (DC), Preventing Falls Additional Instructions: 1) Patient to follow up with PMD within 5 days of discharge. Referrals: Aureliano Johnson MD [Primary Care Provider] - <Billy Stock S - Last Filed: 01/27/18 19:20> Provider - Provider Date of Admission: 01/24/18 05:31 Attending physician: Billy Stock MD Primary care physician: Aureliano Johnson MD Hospital Course - Lab Results Lab Results: Micro Results 01/23/18 22:49 Urine,Clean Catch Urine Culture - Final 10-50,000 CFU/ML. MULTIPLE SPECIES. PROBABLE CONTAMINATION. Most Recent Lab Values WBC 6.9 10^3/uL (4.5-11.0) 01/26/18 08:30 RBC 4.22 10^6/uL (3.5-6.1) 01/26/18 08:30 Hgb 13.7 g/dL (12.0-16.0) 01/26/18 08:30 Hct 41.1 % (36.0-48.0) 01/26/18 08:30 MCV 97.4 fl (80.0-105.0) 01/26/18 08:30 MCH 32.5 pg (25.0-35.0) 01/26/18 08:30 MCHC 33.3 g/dl (31.0-37.0) 01/26/18 08:30 RDW 13.6 % (11.5-14.5) 01/26/18 08:30 Plt Count 237 10^3/uL (120.0-450.0) 01/26/18 08:30 MPV 9.5 fl (7.0-11.0) 01/26/18 08:30 Gran % 48.1 % (50.0-68.0) L 01/26/18 08:30 Lymph % (Auto) 40.8 % (22.0-35.0) H 01/26/18 08:30 Ransom % (Auto) 5.8 % (1.0-6.0) 01/26/18 08:30 Eos % (Auto) 4.9 % (1.5-5.0) 01/26/18 08:30 Baso % (Auto) 0.4 % (0.0-3.0) 01/26/18 08:30 Gran # 3.34 (1.4-6.5) 01/26/18 08:30 Lymph # (Auto) 2.8 (1.2-3.4) 01/26/18 08:30 Ransom # (Auto) 0.4 (0.1-0.6) 01/26/18 08:30 Eos # (Auto) 0.3 (0.0-0.7) 01/26/18 08:30 Baso # (Auto) 0.03 K/mm3 (0.0-2.0) 01/26/18 08:30 PT 11.0 SECONDS (9.4-12.5) 01/23/18 21:50 INR 0.97 01/23/18 21:50 APTT 24.1 Seconds (25.1-36.5) L 01/23/18 21:50 Sodium 140 mmol/L (132-148) 01/26/18 08:30 Potassium 3.9 mmol/L (3.6-5.0) 01/26/18 08:30 Chloride 103 mmol/L (98-107) 01/26/18 08:30 Carbon Dioxide 28 mmol/L (21-33) 01/26/18 08:30 Anion Gap 13 (10-20) 01/26/18 08:30 BUN 17 mg/dL (7-21) 01/26/18 08:30 Creatinine 0.5 mg/dl (0.7-1.2) L 01/26/18 08:30 Est GFR ( Amer) > 60 01/26/18 08:30 Est GFR (Non-Af Amer) > 60 01/26/18 08:30 POC Glucose (mg/dL) 127 mg/dL (65-110) H 01/27/18 11:18 Random Glucose 97 mg/dL (70-110) 01/26/18 08:30 Hemoglobin A1c 5.6 % (4.2-6.5) 01/24/18 10:58 Calcium 9.1 mg/dL (8.4-10.5) 01/26/18 08:30 Total Bilirubin 0.4 mg/dL (0.2-1.3) 01/26/18 08:30 AST 24 U/L (14-36) 01/26/18 08:30 ALT 20 U/L (7-56) 01/26/18 08:30 Alkaline Phosphatase 89 U/L (38-126) 01/26/18 08:30 Troponin I < 0.01 ng/mL 01/24/18 10:30 Total Protein 6.8 g/dL (5.8-8.3) 01/26/18 08:30 Albumin 4.0 g/dL (3.0-4.8) 01/26/18 08:30 Globulin 2.8 gm/dL 01/26/18 08:30 Albumin/Globulin Ratio 1.4 (1.1-1.8) 01/26/18 08:30 Triglycerides 143 mg/dL (35-160) 01/24/18 11:15 Cholesterol 180 mg/dL (130-200) 01/24/18 11:15 LDL Cholesterol Direct 116 mg/dL (0-129) 01/24/18 11:15 HDL Cholesterol 52 mg/dL (29-60) 01/24/18 11:15 Lipase 125 U/L (23-300) 01/23/18 22:49 Urine Color Yellow (YELLOW) 01/23/18 22:49 Urine Appearance Clear (CLEAR) 01/23/18 22:49 Urine pH 6.0 (4.7-8.0) 01/23/18 22:49 Ur Specific [place] >= 1.030 (1.005-1.035) 01/23/18 22:49 Urine Protein Negative mg/dL (<30 mg/dL) 01/23/18 22:49 Urine Glucose (UA) Negative mg/dL (NEGATIVE) 01/23/18 22:49 Urine Ketones Trace mg/dL (NEGATIVE) H 01/23/18 22:49 Urine Blood Negative (NEGATIVE) 01/23/18 22:49 Urine Nitrate Negative (NEGATIVE) 01/23/18 22:49 Urine Bilirubin Negative (NEGATIVE) 01/23/18 22:49 Urine Urobilinogen 0.2 E.U./dL (<1 E.U./dL) 01/23/18 22:49 Ur Leukocyte Esterase Negative Charli/uL (NEGATIVE) 01/23/18 22:49 - Hospital Course Hospital Course: Pt seen and examined. I have reviewed the note of the medical lab tech instructor and agree with it. I have discussed the assessment and plan with the resident. I have reviewed the patient's labs and medications. PT with abd pain. She is being followed by GI. She is waiting to go to TCU. DM-2 controlled. COPD is controlled. She is breathing well. Eating well. Pain is controlled.
== END 2018-01-27 13:58 | DRG 392 ==
LOC: ED 20:25 → ERH 01-24 05:31 → 3RSO 01-24 08:04
PROVIDERS: ADMIT Internal Medicine Nephrology; ATTEND Internal Medicine Nephrology
DX: R10.31 Right lower quadrant pain (principal); H46.9 Unspecified optic neuritis; K51.90 Ulcerative colitis, unspecified, without complications; R07.89 Other chest pain; K44.9 Diaphragmatic hernia without obstruction or gangrene; I11.9 Hypertensive heart disease without heart failure; E11.40 Type 2 diabetes mellitus with diabetic neuropathy, unspecified; J44.9 Chronic obstructive pulmonary disease, unspecified; R94.31 Abnormal electrocardiogram [ECG] [EKG]; M19.90 Unspecified osteoarthritis, unspecified site; L40.9 Psoriasis, unspecified; R32 Unspecified urinary incontinence; Z87.442 Personal history of urinary calculi; Z86.73 Personal history of transient ischemic attack (TIA), and cerebral infarction without residual deficits; K21.9 Gastro-esophageal reflux disease without esophagitis; E11.42 Type 2 diabetes mellitus with diabetic polyneuropathy; E78.00 Pure hypercholesterolemia, unspecified; E78.5 Hyperlipidemia, unspecified; G20 Parkinson's disease; G47.33 Obstructive sleep apnea (adult) (pediatric); H91.90 Unspecified hearing loss, unspecified ear; I67.9 Cerebrovascular disease, unspecified; K31.84 Gastroparesis; K59.00 Constipation, unspecified; L40.50 Arthropathic psoriasis, unspecified; N20.0 Calculus of kidney; N28.1 Cyst of kidney, acquired; Z79.82 Long term (current) use of aspirin; Z87.01 Personal history of pneumonia (recurrent); Z88.3 Allergy status to other anti-infective agents; Z91.048 Other nonmedicinal substance allergy status

== ENCOUNTER 2018-01-27 13:58 | Inpatient (IN) | payer OTHER, MEDICARE ==
[2018-01-27] MEDS ORDERED: Ergocalciferol 50,000 Intl Units Cap PO SCH (14:45)
[2018-01-27 15:45] VITALS: BMI 28.4
[2018-01-27] MEDS: Non Formulary Medication (Budesonide/Formoterol Fumarate [Symbicort 160-4.5 Mcg Inhaler] 2 IH SCH (17:25)
[2018-01-27] MEDS: POLYETHYLENE GLYCOL 3350 17 GM/Dose PACKET PO SCH (17:25)
[2018-01-27] MEDS: Mesalamine ER Cap 500 MG PO SCH ×2 (17:26→21:52)
[2018-01-27] MEDS: buPROPion 150 mg/24 Hours XL Tab PO SCH (17:27)
[2018-01-27] MEDS ORDERED: Non Formulary Medication (Budesonide/Formoterol Fumarate [Symbicort 160-4.5 Mcg Inhaler] 2 IH SCH (18:00)
[2018-01-28] MEDS: Pantoprazole 40 mg EC Tab PO SCH (05:44)
[2018-01-28] MEDS: Enoxaparin 40 mg Syringe SC SCH (05:44)
[2018-01-28] MEDS ORDERED: QUINAPRIL HCL 10 MG PO SCH (10:00)
[2018-01-28] MEDS: POLYETHYLENE GLYCOL 3350 17 GM/Dose PACKET PO SCH ×2 (10:31→18:32)
[2018-01-28] MEDS: GlipiZIDE 2.5 mg SR Tab PO SCH (11:24)
[2018-01-28] MEDS: Mesalamine ER Cap 500 MG PO SCH ×4 (11:26→21:27)
[2018-01-28] MEDS: Tiotropium 18 mcg Cap For Inhalation IH SCH (11:28)
[2018-01-28] MEDS: buPROPion 150 mg/24 Hours XL Tab PO SCH ×2 (11:29→19:54)
[2018-01-28] MEDS: Non Formulary Medication (Budesonide/Formoterol Fumarate [Symbicort 160-4.5 Mcg Inhaler] 2 IH SCH ×2 (13:44→18:31)
[2018-01-28] MEDS: QUINAPRIL HCL 10 MG PO SCH (13:46)
--- NOTE | 2018-01-28 14:46 | CP.PCM.HP ---
<Mani Reaves - Last Filed: 01/28/18 14:49> History of Present Illness - History of Present Illness History of Present Illness: Mani Reaves DO, PGY-2: HPI for Dr. 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 She also admits to a month of inability to void at socially appropriate times with increased urgency, but no dysuria. She reports no chest pain, nausea, diaphoresis, or shortness of breath. She states that yesterday she was walking ten blocks from her home to a grocery store and had to urinate so rushed the last few blocks to the grocery store and used the restroom successfully, but had to sit outside by the pharmacy waiting area because of the weakness she felt. She then was brought in by ambulance. In the ED she underwent CT of the abdomen and pelvis that showed a small sliding hiatal hernia, tiny bilateral renal cysts, punctate calcifications lower pole right kidney. EKG did show new T- wave inversions in Leads I, II, V5, V6 compared to the EKG performed on 10/23/2017. Troponins x 3 were negative. Cardiology was consulted Dr. Daniels. An echocardiogram was performed that showed no abnormalities aside from a mildly dilated left atrium. The patient's abdominal pain improved. Physical therapy recommended TCU for the patient's gait instability. PMH: As above PSH: Multiple skin lesions removed, cervical polyps removed, broken left wrist in 1973, broken right hip Allergies: Perfume, Tide detergent, and bacitracin Social: Denies alcohol, tobacco, or illicit drug use Present on Admission - Present on Admission Any Indicators Present on Admission: No Review of Systems - Review of Systems All systems: reviewed and no additional remarkable complaints except (as per HPI) Past Patient History - Infectious Disease Hx of Infectious Diseases: None - Past Social History Smoking Status: Never Smoked - CARDIAC Hx Cardiac Disorders: Yes - PULMONARY Hx Chronic Obstructive Pulmonary Disease (COPD): Yes - NEUROLOGICAL Hx Parkinson's Disease: Yes - HEENT Hx Deafness: Yes - RENAL Hx Kidney Stones: Yes - ENDOCRINE/METABOLIC Hx Diabetes Mellitus Type 2: Yes - HEMATOLOGICAL/ONCOLOGICAL Hx Blood Disorders: No - INTEGUMENTARY Hx Psoriasis: Yes - MUSCULOSKELETAL/RHEUMATOLOGICAL Hx Falls: Yes - GASTROINTESTINAL Hx Gastrointestinal Disorders: No - GENITOURINARY/GYNECOLOGICAL Hx Reproductive Disorders: No - PSYCHIATRIC Hx Anxiety: Yes Hx Depression: Yes - SURGICAL HISTORY Hx Orthopedic Surgery: Yes (LEFT WRIST, RT SHOULDER, RIGHT HIP) - ANESTHESIA Hx Anesthesia Reactions: No Hx Malignant Hyperthermia: No Meds Allergies/Adverse Reactions: Allergies Allergy/AdvReac Type Severity Reaction Status Date / Time bacitracin Allergy Severe REDNESS Verified 01/23/18 20:33 perfume AdvReac Severe SHORTNESS Verified 01/23/18 20:33 OF BREATH TIDE DETERGENT Allergy Severe ITCHING/MCKAY Uncoded 01/23/18 20:33 H Physical Exam - Constitutional Appears: Well, Non-toxic - Head Exam Head Exam: ATRAUMATIC, NORMOCEPHALIC - Eye Exam Eye Exam: EOMI, Normal appearance - ENT Exam ENT Exam: Mucous Membranes Moist - Neck Exam Neck exam: Positive for: Normal Inspection - Respiratory Exam Respiratory Exam: Clear to Auscultation Bilateral, NORMAL BREATHING PATTERN - Cardiovascular Exam Cardiovascular Exam: RRR, +S1, +S2 - GI/Abdominal Exam GI & Abdominal Exam: Normal Bowel Sounds, Soft. absent: Distended, Guarding - Extremities Exam Extremities exam: Positive for: normal inspection. Negative for: calf tenderness - Back Exam Back exam: NORMAL INSPECTION. absent: CVA tenderness (L), CVA tenderness (R) - Neurological Exam Neurological exam: Alert, CN II-XII Intact, Oriented x3 - Psychiatric Exam Psychiatric exam: Normal Affect, Normal Mood - Skin Skin Exam: Dry, Intact, Normal Color, Warm Results - Vital Signs Recent Vital Signs: Last Vital Signs Temp 98.5 F 01/28/18 10:00 Pulse 80 01/28/18 10:00 Resp 18 01/28/18 10:00 BP 120/73 01/28/18 10:00 Pulse Ox 97 01/28/18 10:00 Assessment & Plan - Assessment and Plan (Free Text) Assessment: 72 year old female with intermittent urinary incontinence possibly secondary to passage of kidney stone who presented with atypical chest pain and new T-wave inversions observed on EKG. Plan: 1) Gait instability - Physical Therapy 2) History of Stroke - Continue with Dipyridamole - Aspirin 81 mg PO daily 3) GERD - Protonix 40 mg PO daily 4) Neurologic problem, unspecified - Carbidopa-Levodopa 25-100 BID - Donezpil 10 mg Note: when patient was asked why she took these two medications listed under problem number 4. She reported Dr. Le has her on them for off-label purposes. She did not elaborate. 5) Ulcerative colitis/Psoriatic arthritis - Mesalamine 5 mg QID - Methotrexate 5 mg every 6) DM II - Glipizide 2.5 PO daily 7) History of Uric acid Stones - Allopurinol 300 mg PO daily 8) COPD - Symbicort 2 puffs IH BID - Tiotropiuem 18 mcg Daily 9)Depression/anxiety - Paxil 40 mg Daily - Wellbutrin 300 mg PO daily 10) Hypertension - Quanapril 10 mg Daily Case reviewed and discussed with attending physician, Dr. Stock - Date & Time Date: 01/28/18 Time: 07:15 <Billy Stock - Last Filed: 01/28/18 15:27> Results - Vital Signs Recent Vital Signs: Last Vital Signs Temp 98.5 F 01/28/18 10:00 Pulse 80 01/28/18 10:00 Resp 18 01/28/18 10:00 BP 120/73 01/28/18 10:00 Pulse Ox 97 01/28/18 10:00 Assessment & Plan - Assessment and Plan (Free Text) Assessment: Pt seen and examined. I have reviewed the note of the director of medical staff services and agree with it. I have discussed the assessment and plan with the resident. I have reviewed the patient's labs and medications. Pt with gait dysfuntion and is on TCU for rehab. She will continue with Mesalamine for UC. She will be on Glipizine for DM-2. Her COPD is controlled with Symbicort and Tiotropium. Her BP is controlled with HTN.
[2018-01-29] MEDS: Enoxaparin 40 mg Syringe SC SCH (05:20)
[2018-01-29] MEDS: Pantoprazole 40 mg EC Tab PO SCH (05:20)
[2018-01-29] MEDS: Non Formulary Medication (Budesonide/Formoterol Fumarate [Symbicort 160-4.5 Mcg Inhaler] 2 IH SCH ×2 (11:10→18:17)
[2018-01-29] MEDS: GlipiZIDE 2.5 mg SR Tab PO SCH (11:11)
[2018-01-29] MEDS: POLYETHYLENE GLYCOL 3350 17 GM/Dose PACKET PO SCH ×2 (11:12→18:17)
[2018-01-29] MEDS: Mesalamine ER Cap 500 MG PO SCH ×4 (11:13→21:47)
[2018-01-29] MEDS: QUINAPRIL HCL 10 MG PO SCH (11:14)
[2018-01-29] MEDS: Tiotropium 18 mcg Cap For Inhalation IH SCH (11:15)
[2018-01-29] MEDS: buPROPion 150 mg/24 Hours XL Tab PO SCH ×2 (11:15→18:21)
[2018-01-30] MEDS: Pantoprazole 40 mg EC Tab PO SCH (05:23)
[2018-01-30] MEDS: Enoxaparin 40 mg Syringe SC SCH (05:23)
[2018-01-30] MEDS: Tiotropium 18 mcg Cap For Inhalation IH SCH (10:07)
[2018-01-30] MEDS: GlipiZIDE 2.5 mg SR Tab PO SCH (10:08)
[2018-01-30] MEDS: Non Formulary Medication (Budesonide/Formoterol Fumarate [Symbicort 160-4.5 Mcg Inhaler] 2 IH SCH ×2 (10:08→17:22)
[2018-01-30] MEDS: POLYETHYLENE GLYCOL 3350 17 GM/Dose PACKET PO SCH ×2 (10:11→17:22)
[2018-01-30] MEDS: Mesalamine ER Cap 500 MG PO SCH ×4 (10:11→21:17)
[2018-01-30] MEDS: buPROPion 150 mg/24 Hours XL Tab PO SCH ×2 (10:12→17:24)
[2018-01-30] MEDS: QUINAPRIL HCL 10 MG PO SCH (13:16)
--- NOTE | 2018-01-30 13:28 | CP.PCM.PN ---
<Mani Reaves - Last Filed: 01/30/18 13:28> Subjective - Date & Time of Evaluation Date of Evaluation: 01/30/18 Time of Evaluation: 07:00 - Subjective Subjective: Mani Reaves DO PGY-2: Progress Note for Dr. Stock Patient was seen and examined at bedside. Patient reports no abdominal pain. Physical therapy note show patients is progressing well with therapy. No adverse events noted overnight. Objective - Vital Signs/Intake and Output Vital Signs (last 24 hours): Temp Pulse Resp BP Pulse Ox 98 F 70 18 113/67 94 L 01/29/18 16:00 01/29/18 16:00 01/29/18 16:00 01/29/18 16:00 01/29/18 16:00 Intake and Output: 01/30/18 01/30/18 06:59 18:59 Intake Total 400 Balance 400 - Medications Medications: Current Medications Allopurinol (Zyloprim) 300 mg PO DAILY [facility]; Protocol Last Admin: 01/30/18 10:12 Dose: 300 mg Alprazolam (Xanax) 0.5 mg PO HS [facility] Last Admin: 01/29/18 21:47 Dose: 0.5 mg Aspirin (Ecotrin) 81 mg PO 0800 [facility]; Protocol Last Admin: 01/30/18 08:31 Dose: 81 mg Bupropion HCl (Wellbutrin Xl) 150 mg PO BID [facility]; Protocol Last Admin: 01/30/18 10:12 Dose: 150 mg Carbidopa/Levodopa (Sinemet) 1 tab PO BID [facility]; Protocol Last Admin: 01/30/18 10:12 Dose: 1 tab Dipyridamole (Persantine) 75 mg PO DAILY [facility] Last Admin: 01/30/18 10:11 Dose: 75 mg Donepezil HCl (Aricept) 10 mg PO HS [facility]; Protocol Last Admin: 01/29/18 21:46 Dose: 10 mg Ezetimibe (Zetia) 10 mg PO DAILY [facility] Last Admin: 01/30/18 10:12 Dose: 10 mg Enoxaparin Sodium (Lovenox) 40 mg SC 0600 [facility]; Protocol Last Admin: 01/30/18 05:23 Dose: 40 mg Ergocalciferol (Drisdol 50,000 Intl Units Cap) 1 cap PO Q7D [facility] Folic Acid (Folic Acid) 1 mg PO DAILY [facility] Last Admin: 01/30/18 10:08 Dose: 1 mg Gabapentin (Neurontin) 300 mg PO BID [facility]; Protocol Last Admin: 01/30/18 10:11 Dose: 300 mg Gabapentin (Neurontin) 600 mg PO HS [facility]; Protocol Last Admin: 01/29/18 21:47 Dose: 600 mg Glipizide (Glucotrol Xl) 2.5 mg PO DAILY [facility]; Protocol Last Admin: 01/30/18 10:08 Dose: 2.5 mg Mesalamine (Pentasa) 500 mg PO QID [facility]; Protocol Last Admin: 01/30/18 13:16 Dose: 500 mg Methotrexate (Methotrexate) 5 mg PO NICOLA [facility]; Protocol Last Admin: 01/30/18 10:08 Dose: 5 mg Non-Formulary Medication (Budesonide/Formoterol Fumarate [Symbicort 160-4.5 Mcg Inhaler]) 2 puff IH BID [facility] Last Admin: 01/30/18 10:08 Dose: Not Given Non-Formulary Medication (Quinapril Hcl [Quinapril Hcl]) 10 mg PO DAILY [facility] Last Admin: 01/30/18 13:16 Dose: Not Given Pantoprazole Sodium (Protonix Ec Tab) 40 mg PO 0600 [facility]; Protocol Last Admin: 01/30/18 05:23 Dose: 40 mg Paroxetine HCl (Paxil) 20 mg PO BID [facility]; Protocol Last Admin: 01/30/18 10:11 Dose: 20 mg Polyethylene Glycol (Miralax) 17 gm PO BID [facility]; Protocol Last Admin: 01/30/18 10:11 Dose: 17 gm Tiotropium [place] (Spiriva) 18 mcg IH DAILY [facility]; Protocol Last Admin: 01/30/18 10:07 Dose: 18 mcg - Constitutional Appears: Well, Non-toxic - Head Exam Head Exam: ATRAUMATIC, NORMOCEPHALIC - Eye Exam Eye Exam: EOMI, Normal appearance - ENT Exam ENT Exam: Mucous Membranes Moist - Neck Exam Neck Exam: Normal Inspection - Respiratory Exam Respiratory Exam: Clear to Ausculation Bilateral, NORMAL BREATHING PATTERN. absent: Accessory Muscle Use - Cardiovascular Exam Cardiovascular Exam: RRR, +S1, +S2 - GI/Abdominal Exam GI & Abdominal Exam: Soft, Normal Bowel Sounds - Rectal Exam Rectal Exam: NORMAL INSPECTION - Extremities Exam Extremities Exam: Normal Inspection. absent: Calf Tenderness - Back Exam Back Exam: NORMAL INSPECTION. absent: CVA tenderness (L), CVA tenderness (R) - Neurological Exam Neurological Exam: Alert, Awake, Oriented x3 - Psychiatric Exam Psychiatric exam: Normal Affect, Normal Mood - Skin Skin Exam: Dry, Intact, Normal Color, Warm Assessment and Plan - Assessment and Plan (Free Text) Assessment: 72 year old female with intermittent urinary incontinence possibly secondary to passage of kidney stone who presented with atypical chest pain and new T-wave inversions observed on EKG. Patient is doing well with Physical Therapy. Plan: 1) Gait instability - Physical Therapy 2) History of Stroke - Continue with Dipyridamole - Aspirin 81 mg PO daily 3) GERD - Protonix 40 mg PO daily 4) Neurologic problem, unspecified - Carbidopa-Levodopa 25-100 BID - Donezpil 10 mg Note: when patient was asked why she took these two medications listed under problem number 4. She reported Dr. Le has her on them for off-label purposes. She did not elaborate. 5) Ulcerative colitis/Psoriatic arthritis - Mesalamine 5 mg QID - Methotrexate 5 mg every 6) DM II - Glipizide 2.5 PO daily 7) History of Uric acid Stones - Allopurinol 300 mg PO daily 8) COPD - Symbicort 2 puffs IH BID - Tiotropiuem 18 mcg Daily 9)Depression/anxiety - Paxil 40 mg Daily - Wellbutrin 300 mg PO daily 10) Hypertension - Quanapril 10 mg Daily Case reviewed and discussed with attending physician, Dr. Stock <Billy Stock S - Last Filed: 01/30/18 18:09> Subjective - Subjective Subjective: Pt seen and examined. I have reviewed the note of the medical research scientist and agree with it. I have discussed the assessment and plan with the resident. I have reviewed the patient's labs and medications. Pt is walking better with PT on TCU. Her gait dysfunction is improving. She will need colonoscopy and will plan for Saturday. I spoke to Dr Salazar. He can perform the procedure on Saturday and so I will discharge the pt home on Saturday. Her DM-2 is cotrolled. Her HTN is controlled. Objective - Vital Signs/Intake and Output Vital Signs (last 24 hours): Temp Pulse Resp BP Pulse Ox 98.4 F 70 18 127/80 95 01/30/18 15:46 01/30/18 16:33 01/30/18 15:46 01/30/18 15:46 01/30/18 16:33 Intake and Output: 01/30/18 01/30/18 06:59 18:59 Intake Total 400 Balance 400 - Medications Medications: Current Medications Allopurinol (Zyloprim) 300 mg PO DAILY [facility]; Protocol Last Admin: 01/30/18 10:12 Dose: 300 mg Alprazolam (Xanax) 0.5 mg PO HS [facility] Last Admin: 01/29/18 21:47 Dose: 0.5 mg Aspirin (Ecotrin) 81 mg PO 0800 [facility]; Protocol Last Admin: 01/30/18 08:31 Dose: 81 mg Bupropion HCl (Wellbutrin Xl) 150 mg PO BID [facility]; Protocol Last Admin: 01/30/18 17:24 Dose: 150 mg Carbidopa/Levodopa (Sinemet) 1 tab PO BID [facility]; Protocol Last Admin: 01/30/18 17:23 Dose: 1 tab Dipyridamole (Persantine) 75 mg PO DAILY [facility] Last Admin: 01/30/18 10:11 Dose: 75 mg Donepezil HCl (Aricept) 10 mg PO HS [facility]; Protocol Last Admin: 01/29/18 21:46 Dose: 10 mg Ezetimibe (Zetia) 10 mg PO DAILY [facility] Last Admin: 01/30/18 10:12 Dose: 10 mg Enoxaparin Sodium (Lovenox) 40 mg SC 0600 [facility]; Protocol Last Admin: 01/30/18 05:23 Dose: 40 mg Ergocalciferol (Drisdol 50,000 Intl Units Cap) 1 cap PO Q7D [facility] Folic Acid (Folic Acid) 1 mg PO DAILY [facility] Last Admin: 01/30/18 10:08 Dose: 1 mg Gabapentin (Neurontin) 300 mg PO BID [facility]; Protocol Last Admin: 01/30/18 17:22 Dose: 300 mg Gabapentin (Neurontin) 600 mg PO HS [facility]; Protocol Last Admin: 01/29/18 21:47 Dose: 600 mg Glipizide (Glucotrol Xl) 2.5 mg PO DAILY [facility]; Protocol Last Admin: 01/30/18 10:08 Dose: 2.5 mg Mesalamine (Pentasa) 500 mg PO QID [facility]; Protocol Last Admin: 01/30/18 17:23 Dose: 500 mg Methotrexate (Methotrexate) 5 mg PO NICOLA [facility]; Protocol Last Admin: 01/30/18 10:08 Dose: 5 mg Non-Formulary Medication (Budesonide/Formoterol Fumarate [Symbicort 160-4.5 Mcg Inhaler]) 2 puff IH BID [facility] Last Admin: 01/30/18 17:22 Dose: Not Given Non-Formulary Medication (Quinapril Hcl [Quinapril Hcl]) 10 mg PO DAILY [facility] Last Admin: 01/30/18 13:16 Dose: Not Given Pantoprazole Sodium (Protonix Ec Tab) 40 mg PO 0600 [facility]; Protocol Last Admin: 01/30/18 05:23 Dose: 40 mg Paroxetine HCl (Paxil) 20 mg PO BID [facility]; Protocol Last Admin: 01/30/18 17:23 Dose: 20 mg Polyethylene Glycol (Miralax) 17 gm PO BID [facility]; Protocol Last Admin: 01/30/18 17:22 Dose: 17 gm Tiotropium [place] (Spiriva) 18 mcg IH DAILY [facility]; Protocol Last Admin: 01/30/18 10:07 Dose: 18 mcg
[2018-01-31] MEDS: Enoxaparin 40 mg Syringe SC SCH (05:18)
[2018-01-31] MEDS: Pantoprazole 40 mg EC Tab PO SCH (05:19)
[2018-01-31] MEDS ORDERED: Ergocalciferol 50,000 Intl Units Cap PO SCH (10:00)
--- NOTE | 2018-01-31 10:08 | CP.PCM.PN ---
<Brody Mir - Last Filed: 01/31/18 15:30> Subjective - Date & Time of Evaluation Date of Evaluation: 01/31/18 Time of Evaluation: 10:05 - Subjective Subjective: PGY-2 GI progress note for Dr Salazar Patient seen in TCU in gym area. She reported mild abdominal discomfort in band like fashion across lower abdomen. Reports discomfort has improved. Biggest concern was inability to have bowel movement without miralax. Wanted to have colonoscopy done while in-house if necessary. Denied emesis, diarrhea, nausea, severe pain. Objective - Vital Signs/Intake and Output Vital Signs (last 24 hours): Temp Pulse Resp BP Pulse Ox 98.1 F 97 H 20 129/97 H 99 01/31/18 09:49 01/31/18 09:49 01/31/18 09:49 01/31/18 09:49 01/31/18 09:49 Intake and Output: 01/31/18 01/31/18 06:59 18:59 Intake Total 280 Balance 280 - Medications Medications: Current Medications Allopurinol (Zyloprim) 300 mg PO DAILY [facility]; Protocol Last Admin: 01/30/18 10:12 Dose: 300 mg Alprazolam (Xanax) 0.5 mg PO HS [facility] Last Admin: 01/30/18 21:18 Dose: 0.5 mg Aspirin (Ecotrin) 81 mg PO 0800 [facility]; Protocol Last Admin: 01/31/18 08:07 Dose: 81 mg Bupropion HCl (Wellbutrin Xl) 150 mg PO BID [facility]; Protocol Last Admin: 01/30/18 17:24 Dose: 150 mg Carbidopa/Levodopa (Sinemet) 1 tab PO BID [facility]; Protocol Last Admin: 01/30/18 17:23 Dose: 1 tab Dipyridamole (Persantine) 75 mg PO DAILY [facility] Last Admin: 01/30/18 10:11 Dose: 75 mg Donepezil HCl (Aricept) 10 mg PO HS [facility]; Protocol Last Admin: 01/30/18 21:17 Dose: 10 mg Ezetimibe (Zetia) 10 mg PO DAILY [facility] Last Admin: 01/30/18 10:12 Dose: 10 mg Enoxaparin Sodium (Lovenox) 40 mg SC 0600 [facility]; Protocol Last Admin: 01/31/18 05:18 Dose: 40 mg Ergocalciferol (Drisdol 50,000 Intl Units Cap) 1 cap PO Q7D [facility] Folic Acid (Folic Acid) 1 mg PO DAILY [facility] Last Admin: 01/30/18 10:08 Dose: 1 mg Gabapentin (Neurontin) 300 mg PO BID [facility]; Protocol Last Admin: 01/30/18 17:22 Dose: 300 mg Gabapentin (Neurontin) 600 mg PO HS [facility]; Protocol Last Admin: 01/30/18 21:17 Dose: 600 mg Glipizide (Glucotrol Xl) 2.5 mg PO DAILY [facility]; Protocol Last Admin: 01/30/18 10:08 Dose: 2.5 mg Mesalamine (Pentasa) 500 mg PO QID [facility]; Protocol Last Admin: 01/30/18 21:17 Dose: 500 mg Methotrexate (Methotrexate) 5 mg PO NICOLA [facility]; Protocol Last Admin: 01/30/18 10:08 Dose: 5 mg Non-Formulary Medication (Budesonide/Formoterol Fumarate [Symbicort 160-4.5 Mcg Inhaler]) 2 puff IH BID [facility] Last Admin: 01/30/18 17:22 Dose: Not Given Non-Formulary Medication (Quinapril Hcl [Quinapril Hcl]) 10 mg PO DAILY [facility] Last Admin: 01/30/18 13:16 Dose: Not Given Pantoprazole Sodium (Protonix Ec Tab) 40 mg PO 0600 [facility]; Protocol Last Admin: 01/31/18 05:19 Dose: 40 mg Paroxetine HCl (Paxil) 20 mg PO BID [facility]; Protocol Last Admin: 01/30/18 17:23 Dose: 20 mg Polyethylene Glycol (Miralax) 17 gm PO BID [facility]; Protocol Last Admin: 01/30/18 17:22 Dose: 17 gm Tiotropium [place] (Spiriva) 18 mcg IH DAILY [facility]; Protocol Last Admin: 01/30/18 10:07 Dose: 18 mcg - Additional Findings Additional findings: - Constitutional Appears: Non-toxic, No Acute Distress - Head Exam Head Exam: ATRAUMATIC, NORMOCEPHALIC - Eye Exam Eye Exam: EOMI, PERRL. absent: Scleral icterus Pupil Exam: PERRL. absent: Miosis, Mydriatic - ENT Exam ENT Exam: Mucous Membranes Moist, Normal Oropharynx - Neck Exam Neck Exam: Full ROM, Normal Inspection - Respiratory Exam Respiratory Exam: Clear to Ausculation Bilateral. absent: Rales, Rhonchi, Wheezes - Cardiovascular Exam Cardiovascular Exam: RRR, +S1, +S2. absent: Gallop, Rubs - GI/Abdominal Exam GI & Abdominal Exam: Soft, Normal Bowel Sounds. absent: Distended, Firm, Guarding, Rigid, Tenderness, Mass, Organomegaly, Rebound - Extremities Exam Extremities Exam: Normal Inspection. absent: Pedal Edema - Neurological Exam Neurological Exam: Alert, Awake - Psychiatric Exam Psychiatric exam: Normal Affect, Normal Mood - Skin Skin Exam: Dry, Intact, Normal Color, Warm Assessment and Plan - Assessment and Plan (Free Text) Plan: 72 year old female with Ulcerative colitis (on Pentasa), COPD, Diabetes, and GERD initially admitted for t-wave inversions on ekg - GI was consulted for abdominal pain. Active treatment of improving right-sided abdominal pain and constipation. Colonoscopy 08/2016 with normal mucosa on endoscopic evaluation, no active inflammation/dysplasia on surveillance biopsies, diminutive rectal hyperplastic polyp, and small internal hemorrhoids. EGD 02/2015 with H. pylori negative gastritis. Plan: -continue Miralax BID -tolerating diet -improving abdominal pain -continue Pentasa 500mg QID -will benefit from early colonoscopy evaluation * tentatively scheduled for saturday02/03/18 and will be d/c'd home after procedure * will start bowel prep the day before * stated she prefers bowel prep with mild of magnesia instead of golytly Seen and discussed with Dr Salazar <Bre Salazar V - Last Filed: 01/31/18 23:44> Objective - Vital Signs/Intake and Output Vital Signs (last 24 hours): Temp Pulse Resp BP Pulse Ox 98.1 F 78 20 129/97 H 98 01/31/18 09:49 01/31/18 16:20 01/31/18 09:49 01/31/18 09:49 01/31/18 16:20 - Medications Medications: Current Medications Allopurinol (Zyloprim) 300 mg PO DAILY [facility]; Protocol Last Admin: 01/31/18 10:18 Dose: 300 mg Alprazolam (Xanax) 0.5 mg PO HS [facility] Last Admin: 01/31/18 21:28 Dose: 0.5 mg Aspirin (Ecotrin) 81 mg PO 0800 [facility]; Protocol Last Admin: 01/31/18 08:07 Dose: 81 mg Bupropion HCl (Wellbutrin Xl) 150 mg PO BID [facility]; Protocol Last Admin: 01/31/18 17:26 Dose: 150 mg Carbidopa/Levodopa (Sinemet) 1 tab PO BID [facility]; Protocol Last Admin: 01/31/18 17:26 Dose: 1 tab Dipyridamole (Persantine) 75 mg PO DAILY [facility] Last Admin: 01/31/18 10:18 Dose: 75 mg Donepezil HCl (Aricept) 10 mg PO HS [facility]; Protocol Last Admin: 01/31/18 21:29 Dose: 10 mg Ezetimibe (Zetia) 10 mg PO DAILY [facility] Last Admin: 01/31/18 10:18 Dose: 10 mg Enoxaparin Sodium (Lovenox) 40 mg SC 0600 [facility]; Protocol Last Admin: 01/31/18 05:18 Dose: 40 mg Ergocalciferol (Drisdol 50,000 Intl Units Cap) 1 cap PO Q7D [facility] Last Admin: 01/31/18 10:17 Dose: 1 cap Folic Acid (Folic Acid) 1 mg PO DAILY [facility] Last Admin: 01/31/18 10:17 Dose: 1 mg Gabapentin (Neurontin) 300 mg PO BID [facility]; Protocol Last Admin: 01/31/18 17:26 Dose: 300 mg Gabapentin (Neurontin) 600 mg PO HS [facility]; Protocol Last Admin: 01/31/18 21:28 Dose: 600 mg Glipizide (Glucotrol Xl) 2.5 mg PO DAILY [facility]; Protocol Last Admin: 01/31/18 10:17 Dose: 2.5 mg Mesalamine (Pentasa) 500 mg PO QID [facility]; Protocol Last Admin: 01/31/18 21:28 Dose: 500 mg Methotrexate (Methotrexate) 5 mg PO NICOLA [facility]; Protocol Last Admin: 01/30/18 10:08 Dose: 5 mg Non-Formulary Medication (Budesonide/Formoterol Fumarate [Symbicort 160-4.5 Mcg Inhaler]) 2 puff IH BID [facility] Last Admin: 01/31/18 17:25 Dose: Not Given Non-Formulary Medication (Quinapril Hcl [Quinapril Hcl]) 10 mg PO DAILY [facility] Last Admin: 01/31/18 10:29 Dose: Not Given Pantoprazole Sodium (Protonix Ec Tab) 40 mg PO 0600 [facility]; Protocol Last Admin: 01/31/18 05:19 Dose: 40 mg Paroxetine HCl (Paxil) 20 mg PO BID [facility]; Protocol Last Admin: 01/31/18 17:26 Dose: 20 mg Polyethylene Glycol (Miralax) 17 gm PO BID [facility]; Protocol Last Admin: 01/31/18 17:25 Dose: Not Given Tiotropium [place] (Spiriva) 18 mcg IH DAILY [facility]; Protocol Last Admin: 01/31/18 10:18 Dose: 18 mcg Attending/Attestation - Attestation I have personally seen and examined this patient.: Yes I have fully participated in the care of the patient.: Yes I have reviewed all pertinent clinical information, including history, physical exam and plan: Yes Notes (Text): This is an addendum to GI followup report dictated by the Wedding Coordinator. The patient was seen and evaluated earlier. Medical records, lab studies, imagings were reviewed. Last 24 hours events reviewed. Agreed with the above treatment plan as outlined in Wedding Coordinator 's notes with the addition of the following 01/31/18 23:43
[2018-01-31] MEDS: POLYETHYLENE GLYCOL 3350 17 GM/Dose PACKET PO SCH ×2 (10:17→17:25)
[2018-01-31] MEDS: Mesalamine ER Cap 500 MG PO SCH ×4 (10:17→21:28)
[2018-01-31] MEDS: GlipiZIDE 2.5 mg SR Tab PO SCH (10:17)
[2018-01-31] MEDS: buPROPion 150 mg/24 Hours XL Tab PO SCH ×2 (10:18→17:26)
[2018-01-31] MEDS: Tiotropium 18 mcg Cap For Inhalation IH SCH (10:18)
--- NOTE | 2018-01-31 10:20 | CP.PCM.PN ---
<Mani Reaves - Last Filed: 01/31/18 10:53> Subjective - Date & Time of Evaluation Date of Evaluation: 01/31/18 Time of Evaluation: 07:00 - Subjective Subjective: Mani Reaves DO PGY-2: Progress Note for Dr. Stock Patient was seen and examined at bedside. Patient reports no abdominal pain. Physical therapy note show patients is progressing well with therapy. No adverse events noted overnight. Patient will be getting a colonoscopy on Saturday. Objective - Vital Signs/Intake and Output Vital Signs (last 24 hours): Temp Pulse Resp BP Pulse Ox 98.1 F 97 H 20 129/97 H 99 01/31/18 09:49 01/31/18 09:49 01/31/18 09:49 01/31/18 09:49 01/31/18 09:49 Intake and Output: 01/31/18 01/31/18 06:59 18:59 Intake Total 280 Balance 280 - Medications Medications: Current Medications Allopurinol (Zyloprim) 300 mg PO DAILY [facility]; Protocol Last Admin: 01/30/18 10:12 Dose: 300 mg Alprazolam (Xanax) 0.5 mg PO HS [facility] Last Admin: 01/30/18 21:18 Dose: 0.5 mg Aspirin (Ecotrin) 81 mg PO 0800 [facility]; Protocol Last Admin: 01/31/18 08:07 Dose: 81 mg Bupropion HCl (Wellbutrin Xl) 150 mg PO BID [facility]; Protocol Last Admin: 01/30/18 17:24 Dose: 150 mg Carbidopa/Levodopa (Sinemet) 1 tab PO BID [facility]; Protocol Last Admin: 01/30/18 17:23 Dose: 1 tab Dipyridamole (Persantine) 75 mg PO DAILY [facility] Last Admin: 01/30/18 10:11 Dose: 75 mg Donepezil HCl (Aricept) 10 mg PO HS [facility]; Protocol Last Admin: 01/30/18 21:17 Dose: 10 mg Ezetimibe (Zetia) 10 mg PO DAILY [facility] Last Admin: 01/30/18 10:12 Dose: 10 mg Enoxaparin Sodium (Lovenox) 40 mg SC 0600 [facility]; Protocol Last Admin: 01/31/18 05:18 Dose: 40 mg Ergocalciferol (Drisdol 50,000 Intl Units Cap) 1 cap PO Q7D [facility] Folic Acid (Folic Acid) 1 mg PO DAILY [facility] Last Admin: 01/30/18 10:08 Dose: 1 mg Gabapentin (Neurontin) 300 mg PO BID [facility]; Protocol Last Admin: 01/30/18 17:22 Dose: 300 mg Gabapentin (Neurontin) 600 mg PO HS [facility]; Protocol Last Admin: 01/30/18 21:17 Dose: 600 mg Glipizide (Glucotrol Xl) 2.5 mg PO DAILY [facility]; Protocol Last Admin: 01/30/18 10:08 Dose: 2.5 mg Mesalamine (Pentasa) 500 mg PO QID [facility]; Protocol Last Admin: 01/30/18 21:17 Dose: 500 mg Methotrexate (Methotrexate) 5 mg PO NICOLA [facility]; Protocol Last Admin: 01/30/18 10:08 Dose: 5 mg Non-Formulary Medication (Budesonide/Formoterol Fumarate [Symbicort 160-4.5 Mcg Inhaler]) 2 puff IH BID [facility] Last Admin: 01/30/18 17:22 Dose: Not Given Non-Formulary Medication (Quinapril Hcl [Quinapril Hcl]) 10 mg PO DAILY [facility] Last Admin: 01/30/18 13:16 Dose: Not Given Pantoprazole Sodium (Protonix Ec Tab) 40 mg PO 0600 [facility]; Protocol Last Admin: 01/31/18 05:19 Dose: 40 mg Paroxetine HCl (Paxil) 20 mg PO BID [facility]; Protocol Last Admin: 01/30/18 17:23 Dose: 20 mg Polyethylene Glycol (Miralax) 17 gm PO BID [facility]; Protocol Last Admin: 01/30/18 17:22 Dose: 17 gm Tiotropium [place] (Spiriva) 18 mcg IH DAILY [facility]; Protocol Last Admin: 01/30/18 10:07 Dose: 18 mcg - Constitutional Appears: Well, Non-toxic - Head Exam Head Exam: ATRAUMATIC, NORMOCEPHALIC - Eye Exam Eye Exam: EOMI, Normal appearance - ENT Exam ENT Exam: Mucous Membranes Moist - Neck Exam Neck Exam: Normal Inspection - Respiratory Exam Respiratory Exam: Clear to Ausculation Bilateral, NORMAL BREATHING PATTERN. absent: Accessory Muscle Use - Cardiovascular Exam Cardiovascular Exam: RRR, +S1, +S2 - GI/Abdominal Exam GI & Abdominal Exam: Soft, Normal Bowel Sounds. absent: Rebound - Extremities Exam Extremities Exam: Normal Inspection. absent: Calf Tenderness - Back Exam Back Exam: NORMAL INSPECTION. absent: CVA tenderness (L), CVA tenderness (R) - Neurological Exam Neurological Exam: Alert, Awake, Oriented x3 - Psychiatric Exam Psychiatric exam: Normal Affect, Normal Mood - Skin Skin Exam: Dry, Intact, Normal Color, Warm Assessment and Plan - Assessment and Plan (Free Text) Assessment: 72 year old female with intermittent urinary incontinence possibly secondary to passage of kidney stone who presented with atypical chest pain and new T-wave inversions observed on EKG. Patient is doing well with Physical Therapy. GI is following. Plan: 1) Gait instability - Physical Therapy 2) History of Stroke - Continue with Dipyridamole - Aspirin 81 mg PO daily 3) GERD - Protonix 40 mg PO daily 4) Neurologic problem, unspecified - Carbidopa-Levodopa 25-100 BID - Donezpil 10 mg Note: when patient was asked why she took these two medications listed under problem number 4. She reported Dr. Le has her on them for off-label purposes. She did not elaborate. 5) Ulcerative colitis/Psoriatic arthritis - Mesalamine 5 mg QID - Methotrexate 5 mg every 6) DM II - Glipizide 2.5 PO daily 7) History of Uric acid Stones - Allopurinol 300 mg PO daily 8) COPD - Symbicort 2 puffs IH BID - Tiotropiuem 18 mcg Daily 9)Depression/anxiety - Paxil 40 mg Daily - Wellbutrin 300 mg PO daily 10) Hypertension - Quanapril 10 mg Daily 11) Constipation - Miralax - GI is following and may perform colonoscopy this coming Saturday Case reviewed and discussed with attending physician, Dr. Stock <Billy Stock - Last Filed: 01/31/18 19:08> Objective - Vital Signs/Intake and Output Vital Signs (last 24 hours): Temp Pulse Resp BP Pulse Ox 98.1 F 78 20 129/97 H 98 01/31/18 09:49 01/31/18 16:20 01/31/18 09:49 01/31/18 09:49 01/31/18 16:20 - Medications Medications: Current Medications Allopurinol (Zyloprim) 300 mg PO DAILY [facility]; Protocol Last Admin: 01/31/18 10:18 Dose: 300 mg Alprazolam (Xanax) 0.5 mg PO HS [facility] Last Admin: 01/30/18 21:18 Dose: 0.5 mg Aspirin (Ecotrin) 81 mg PO 0800 [facility]; Protocol Last Admin: 01/31/18 08:07 Dose: 81 mg Bupropion HCl (Wellbutrin Xl) 150 mg PO BID [facility]; Protocol Last Admin: 01/31/18 17:26 Dose: 150 mg Carbidopa/Levodopa (Sinemet) 1 tab PO BID [facility]; Protocol Last Admin: 01/31/18 17:26 Dose: 1 tab Dipyridamole (Persantine) 75 mg PO DAILY [facility] Last Admin: 01/31/18 10:18 Dose: 75 mg Donepezil HCl (Aricept) 10 mg PO HS [facility]; Protocol Last Admin: 01/30/18 21:17 Dose: 10 mg Ezetimibe (Zetia) 10 mg PO DAILY [facility] Last Admin: 01/31/18 10:18 Dose: 10 mg Enoxaparin Sodium (Lovenox) 40 mg SC 0600 [facility]; Protocol Last Admin: 01/31/18 05:18 Dose: 40 mg Ergocalciferol (Drisdol 50,000 Intl Units Cap) 1 cap PO Q7D [facility] Last Admin: 01/31/18 10:17 Dose: 1 cap Folic Acid (Folic Acid) 1 mg PO DAILY [facility] Last Admin: 01/31/18 10:17 Dose: 1 mg Gabapentin (Neurontin) 300 mg PO BID [facility]; Protocol Last Admin: 01/31/18 17:26 Dose: 300 mg Gabapentin (Neurontin) 600 mg PO HS [facility]; Protocol Last Admin: 01/30/18 21:17 Dose: 600 mg Glipizide (Glucotrol Xl) 2.5 mg PO DAILY [facility]; Protocol Last Admin: 01/31/18 10:17 Dose: 2.5 mg Mesalamine (Pentasa) 500 mg PO QID [facility]; Protocol Last Admin: 01/31/18 17:26 Dose: 500 mg Methotrexate (Methotrexate) 5 mg PO NICOLA [facility]; Protocol Last Admin: 01/30/18 10:08 Dose: 5 mg Non-Formulary Medication (Budesonide/Formoterol Fumarate [Symbicort 160-4.5 Mcg Inhaler]) 2 puff IH BID [facility] Last Admin: 01/31/18 17:25 Dose: Not Given Non-Formulary Medication (Quinapril Hcl [Quinapril Hcl]) 10 mg PO DAILY [facility] Last Admin: 01/31/18 10:29 Dose: Not Given Pantoprazole Sodium (Protonix Ec Tab) 40 mg PO 0600 [facility]; Protocol Last Admin: 01/31/18 05:19 Dose: 40 mg Paroxetine HCl (Paxil) 20 mg PO BID [facility]; Protocol Last Admin: 01/31/18 17:26 Dose: 20 mg Polyethylene Glycol (Miralax) 17 gm PO BID [facility]; Protocol Last Admin: 01/31/18 17:25 Dose: Not Given Tiotropium [place] (Spiriva) 18 mcg IH DAILY [facility]; Protocol Last Admin: 01/31/18 10:18 Dose: 18 mcg Assessment and Plan - Assessment and Plan (Free Text) Assessment: Pt seen and examined. I have reviewed the note of the medical investigator and agree with it. I have discussed the assessment and plan with the resident. I have reviewed the patient's labs and medications. Pt doing well on TCU. She is walking better. She will get a colonoscopy on Saturday and be discharged home. She is eating well and denies any pain. She has no abd pain. She is on Paxil for her anxiety. She will continue with Mirala for her constipation.
[2018-01-31] MEDS: Non Formulary Medication (Budesonide/Formoterol Fumarate [Symbicort 160-4.5 Mcg Inhaler] 2 IH SCH ×2 (10:25→17:25)
[2018-01-31] MEDS: QUINAPRIL HCL 10 MG PO SCH (10:29)
[2018-02-01] MEDS: Pantoprazole 40 mg EC Tab PO SCH (05:46)
[2018-02-01] MEDS: Enoxaparin 40 mg Syringe SC SCH (05:46)
[2018-02-01] MEDS: GlipiZIDE 2.5 mg SR Tab PO SCH (10:58)
[2018-02-01] MEDS: POLYETHYLENE GLYCOL 3350 17 GM/Dose PACKET PO SCH ×2 (10:58→17:46)
[2018-02-01] MEDS: Mesalamine ER Cap 500 MG PO SCH ×4 (10:59→21:10)
[2018-02-01] MEDS: buPROPion 150 mg/24 Hours XL Tab PO SCH ×2 (11:00→17:48)
[2018-02-01] MEDS: Tiotropium 18 mcg Cap For Inhalation IH SCH (11:00)
[2018-02-01] MEDS: Non Formulary Medication (Budesonide/Formoterol Fumarate [Symbicort 160-4.5 Mcg Inhaler] 2 IH SCH ×2 (11:01→17:46)
[2018-02-01] MEDS: QUINAPRIL HCL 10 MG PO SCH (11:01)
[2018-02-02] MEDS: Pantoprazole 40 mg EC Tab PO SCH (05:49)
[2018-02-02] MEDS: Enoxaparin 40 mg Syringe SC SCH (05:50)
[2018-02-02] MEDS: Tiotropium 18 mcg Cap For Inhalation IH SCH (09:00)
[2018-02-02] MEDS: buPROPion 150 mg/24 Hours XL Tab PO SCH ×2 (09:01→17:28)
[2018-02-02] MEDS: GlipiZIDE 2.5 mg SR Tab PO SCH (09:01)
[2018-02-02] MEDS: Mesalamine ER Cap 500 MG PO SCH ×4 (09:02→21:41)
[2018-02-02] MEDS: QUINAPRIL HCL 10 MG PO SCH (09:03)
[2018-02-02] MEDS: Non Formulary Medication (Budesonide/Formoterol Fumarate [Symbicort 160-4.5 Mcg Inhaler] 2 IH SCH ×2 (09:04→17:28)
[2018-02-02] MEDS: POLYETHYLENE GLYCOL 3350 17 GM/Dose PACKET PO SCH ×2 (09:04→17:28)
[2018-02-02] MEDS ORDERED: Bisacodyl 5mg EC Tab PO ONE (10:01)
[2018-02-02] MEDS ORDERED: Magnesium Citrate Oral SOL (300 ml) PO ONE (10:01)
[2018-02-02 16:06] VITALS: PULSE 70; O2SAT 96
[2018-02-03] MEDS: Pantoprazole 40 mg EC Tab PO SCH (05:34)
[2018-02-03] MEDS: Enoxaparin 40 mg Syringe SC SCH (05:38)
[2018-02-03] MEDS ORDERED: Bisacodyl 5mg EC Tab PO ONE (08:38)
[2018-02-03] MEDS ORDERED: Magnesium Citrate Oral SOL (300 ml) PO ONE (08:38)
[2018-02-03 09:25] LABS: BASO # 0.04 K/mm3 (0.0-2.0); BASO % 0.6 % (0.0-3.0); EOS # 0.3 (0.0-0.7); EOS % 4.7 % (1.5-5.0); GRAN # 4.07 (1.4-6.5); HEMOGLOBIN 13.4 g/dL (12.0-16.0); LYMPH # 2.2 (1.2-3.4); LYMPH % 30.7 % (22.0-35.0); MEAN CELL VOLUME 98.3 fl (80.0-105.0); MEAN CORPUSCULAR HEMOGLOBIN 32.6 pg (25.0-35.0); MEAN CORPUSCULAR HGB CONC 33.2 g/dl (31.0-37.0); MEAN PLATELET VOLUME 9.7 fl (7.0-11.0); MONO # 0.4 (0.1-0.6); RBC 4.11 10^6/uL (3.5-6.1); RED CELL DISTRIBUTION WIDTH 13.4 % (11.5-14.5)
[2018-02-03 09:30] LABS: INR 1.06; PROTHROMBIN TIME 12.2 SECONDS (9.4-12.5)
[2018-02-03 09:38] LABS: ALB/GLOB RATIO 1.4 (1.1-1.8); ALBUMIN 4.1 g/dL (3.0-4.8); ALT/SGPT 31 U/L (7-56); AST/SGOT 28 U/L (14-36); BLOOD UREA NITROGEN 15 mg/dL (7-21); GFR NON-AFRICAN AMERICAN > 60
[2018-02-03 10:29] VITALS: BP 119/76; RESP 18; TEMP 98.1
--- NOTE | 2018-02-03 11:16 | CP.PCM.DIS ---
<Mani Reaves - Last Filed: 02/03/18 17:11> Provider - Provider Date of Admission: 01/27/18 13:58 Attending physician: Billy Stock MD Primary care physician: Aureliano Johnson MD Consults: Dr. Martin Daniels Time Spent in preparation of Discharge (in minutes): 45 Hospital Course - Lab Results Lab Results: Most Recent Lab Values WBC 7.0 10^3/uL (4.5-11.0) 02/03/18 09:15 RBC 4.11 10^6/uL (3.5-6.1) 02/03/18 09:15 Hgb 13.4 g/dL (12.0-16.0) 02/03/18 09:15 Hct 40.4 % (36.0-48.0) 02/03/18 09:15 MCV 98.3 fl (80.0-105.0) 02/03/18 09:15 MCH 32.6 pg (25.0-35.0) 02/03/18 09:15 MCHC 33.2 g/dl (31.0-37.0) 02/03/18 09:15 RDW 13.4 % (11.5-14.5) 02/03/18 09:15 Plt Count 266 10^3/uL (120.0-450.0) 02/03/18 09:15 MPV 9.7 fl (7.0-11.0) 02/03/18 09:15 Gran % 58.0 % (50.0-68.0) 02/03/18 09:15 Lymph % (Auto) 30.7 % (22.0-35.0) 02/03/18 09:15 [place] % (Auto) 6.0 % (1.0-6.0) 02/03/18 09:15 Eos % (Auto) 4.7 % (1.5-5.0) 02/03/18 09:15 Baso % (Auto) 0.6 % (0.0-3.0) 02/03/18 09:15 Gran # 4.07 (1.4-6.5) 02/03/18 09:15 Lymph # (Auto) 2.2 (1.2-3.4) 02/03/18 09:15 [place] # (Auto) 0.4 (0.1-0.6) 02/03/18 09:15 Eos # (Auto) 0.3 (0.0-0.7) 02/03/18 09:15 Baso # (Auto) 0.04 K/mm3 (0.0-2.0) 02/03/18 09:15 PT 12.2 SECONDS (9.4-12.5) 02/03/18 09:15 INR 1.06 02/03/18 09:15 Sodium 140 mmol/L (132-148) 02/03/18 09:15 Potassium 3.6 mmol/L (3.6-5.0) 02/03/18 09:15 Chloride 99 mmol/L (98-107) 02/03/18 09:15 Carbon Dioxide 34 mmol/L (21-33) H 02/03/18 09:15 Anion Gap 12 (10-20) 02/03/18 09:15 BUN 15 mg/dL (7-21) 02/03/18 09:15 Creatinine 0.6 mg/dl (0.7-1.2) L 02/03/18 09:15 Est GFR ( Amer) > 60 02/03/18 09:15 Est GFR (Non-Af Amer) > 60 02/03/18 09:15 Random Glucose 139 mg/dL (70-110) H 02/03/18 09:15 Calcium 9.0 mg/dL (8.4-10.5) 02/03/18 09:15 Total Bilirubin 0.4 mg/dL (0.2-1.3) 02/03/18 09:15 AST 28 U/L (14-36) 02/03/18 09:15 ALT 31 U/L (7-56) 02/03/18 09:15 Alkaline Phosphatase 83 U/L (38-126) 02/03/18 09:15 Total Protein 7.0 g/dL (5.8-8.3) 02/03/18 09:15 Albumin 4.1 g/dL (3.0-4.8) 02/03/18 09:15 Globulin 2.9 gm/dL 02/03/18 09:15 Albumin/Globulin Ratio 1.4 (1.1-1.8) 02/03/18 09:15 - Hospital Course Hospital Course: Mani Jean Paul DO, PGY-2: HPI for Dr. 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 She also admits to a month of inability to void at socially appropriate times with increased urgency, but no dysuria. She reports no chest pain, nausea, diaphoresis, or shortness of breath. She states that yesterday she was walking ten blocks from her home to a grocery store and had to urinate so rushed the last few blocks to the grocery store and used the restroom successfully, but had to sit outside by the pharmacy waiting area because of the weakness she felt. She then was brought in by ambulance. In the ED she underwent CT of the abdomen and pelvis that showed a small sliding hiatal hernia, tiny bilateral renal cysts, punctate calcifications lower pole right kidney. EKG did show new T- wave inversions in Leads I, II, V5, V6 compared to the EKG performed on 10/23/2017. Troponins x 3 were negative. Cardiology was consulted Dr. Daniels. An echocardiogram was performed that showed no abnormalities aside from a mildly dilated left atrium. The patient's abdominal pain improved. Physical therapy recommended TCU for the patient's gait instability. GI recommended a colonoscopy which was performed on 02/03/18. Prior to the colonoscopy, the patient was discharged from TCU. - Date & Time of H&P Date of H&P: 02/03/18 Time of H&P: 11:32 Discharge Exam - Head Exam Head Exam: ATRAUMATIC, NORMOCEPHALIC - Eye Exam Eye Exam: EOMI, Normal appearance - ENT Exam ENT Exam: Mucous Membranes Moist - Neck Exam Neck exam: Normal Inspection - Respiratory Exam Respiratory Exam: Clear to PA & Lateral, NORMAL BREATHING PATTERN. absent: Accessory Muscle Use - Cardiovascular Exam Cardiovascular Exam: RRR, +S1, +S2 - GI/Abdominal Exam GI & Abdominal Exam: Normal Bowel Sounds. absent: Guarding, Rebound - Extremities Exam Extremities exam: normal inspection - Back Exam Back exam: NORMAL INSPECTION. absent: CVA tenderness (L), CVA tenderness (R) - Neurological Exam Neurological exam: Alert, CN II-XII Intact, Oriented x3 - Psychiatric Exam Psychiatric exam: Normal Affect, Normal Mood - Skin Skin Exam: Dry, Intact, Normal Color, Warm Discharge Plan - Follow Up Plan Condition: GOOD Disposition: HOME/ ROUTINE Instructions: Electrocardiogram, High Blood Pressure in Adults Additional Instructions: 1) Patient to follow up with PMD, Dr. Johnson within one week of discharge. 2) Patient to continue taking home medications as was prior to admission 3) Patient to take medications as directed, unless otherwise indicated. 4) Patient recommended to use OTC Mirlax daily for constipation. Referrals: Aureliano Johnson MD [Primary Care Provider] - <Billy Stock - Last Filed: 02/03/18 19:35> Provider - Provider Date of Admission: 01/27/18 13:58 Attending physician: Billy Stock MD Primary care physician: Aureliano Johnson MD Hospital Course - Lab Results Lab Results: Most Recent Lab Values WBC 7.0 10^3/uL (4.5-11.0) 02/03/18 09:15 RBC 4.11 10^6/uL (3.5-6.1) 02/03/18 09:15 Hgb 13.4 g/dL (12.0-16.0) 02/03/18 09:15 Hct 40.4 % (36.0-48.0) 02/03/18 09:15 MCV 98.3 fl (80.0-105.0) 02/03/18 09:15 MCH 32.6 pg (25.0-35.0) 02/03/18 09:15 MCHC 33.2 g/dl (31.0-37.0) 02/03/18 09:15 RDW 13.4 % (11.5-14.5) 02/03/18 09:15 Plt Count 266 10^3/uL (120.0-450.0) 02/03/18 09:15 MPV 9.7 fl (7.0-11.0) 02/03/18 09:15 Gran % 58.0 % (50.0-68.0) 02/03/18 09:15 Lymph % (Auto) 30.7 % (22.0-35.0) 02/03/18 09:15 [place] % (Auto) 6.0 % (1.0-6.0) 02/03/18 09:15 Eos % (Auto) 4.7 % (1.5-5.0) 02/03/18 09:15 Baso % (Auto) 0.6 % (0.0-3.0) 02/03/18 09:15 Gran # 4.07 (1.4-6.5) 02/03/18 09:15 Lymph # (Auto) 2.2 (1.2-3.4) 02/03/18 09:15 [place] # (Auto) 0.4 (0.1-0.6) 02/03/18 09:15 Eos # (Auto) 0.3 (0.0-0.7) 02/03/18 09:15 Baso # (Auto) 0.04 K/mm3 (0.0-2.0) 02/03/18 09:15 PT 12.2 SECONDS (9.4-12.5) 02/03/18 09:15 INR 1.06 02/03/18 09:15 Sodium 140 mmol/L (132-148) 02/03/18 09:15 Potassium 3.6 mmol/L (3.6-5.0) 02/03/18 09:15 Chloride 99 mmol/L (98-107) 02/03/18 09:15 Carbon Dioxide 34 mmol/L (21-33) H 02/03/18 09:15 Anion Gap 12 (10-20) 02/03/18 09:15 BUN 15 mg/dL (7-21) 02/03/18 09:15 Creatinine 0.6 mg/dl (0.7-1.2) L 02/03/18 09:15 Est GFR ( Amer) > 60 02/03/18 09:15 Est GFR (Non-Af Amer) > 60 02/03/18 09:15 POC Glucose (mg/dL) 107 mg/dL (65-110) 02/03/18 15:20 Random Glucose 139 mg/dL (70-110) H 02/03/18 09:15 Calcium 9.0 mg/dL (8.4-10.5) 02/03/18 09:15 Total Bilirubin 0.4 mg/dL (0.2-1.3) 02/03/18 09:15 AST 28 U/L (14-36) 02/03/18 09:15 ALT 31 U/L (7-56) 02/03/18 09:15 Alkaline Phosphatase 83 U/L (38-126) 02/03/18 09:15 Total Protein 7.0 g/dL (5.8-8.3) 02/03/18 09:15 Albumin 4.1 g/dL (3.0-4.8) 02/03/18 09:15 Globulin 2.9 gm/dL 02/03/18 09:15 Albumin/Globulin Ratio 1.4 (1.1-1.8) 02/03/18 09:15 - Hospital Course Hospital Course: Pt seen and examined. I have reviewed the note of the biomedical engineering internship and agree with it. I have discussed the assessment and plan with the resident. I have reviewed the patient's labs and medications. Pt is going to get colonoscopy today. She will D/C home. She will continue with her home medications.
[2018-02-03] MEDS: GlipiZIDE 2.5 mg SR Tab PO SCH (11:35)
[2018-02-03] MEDS: buPROPion 150 mg/24 Hours XL Tab PO SCH (11:37)
[2018-02-03] MEDS: Tiotropium 18 mcg Cap For Inhalation IH SCH (11:44)
[2018-02-03] MEDS: Non Formulary Medication (Budesonide/Formoterol Fumarate [Symbicort 160-4.5 Mcg Inhaler] 2 IH SCH (11:45)
[2018-02-03] MEDS: POLYETHYLENE GLYCOL 3350 17 GM/Dose PACKET PO SCH (11:47)
[2018-02-03] MEDS: Mesalamine ER Cap 500 MG PO SCH (12:06)
[2018-02-03] MEDS: QUINAPRIL HCL 10 MG PO SCH (14:16)
[2018-02-03] MEDS ORDERED: Propofol 10 mg/ml Inj (20 ML) ONE (17:12)
== END 2018-02-03 16:05 | disposition home or self-care (01) | DRG 92 ==
LOC: TRCU 13:58
PROVIDERS: ADMIT Internal Medicine Nephrology; ATTEND Internal Medicine Nephrology
PROC: F07Z9FZ Gait Training/Functional Ambulation Treatment using Assistive, Adaptive, Supportive or Protective Equipment (ICD-10-PCS; principal; 2018-01-29)
PROC: F07L6YZ Therapeutic Exercise Treatment of Musculoskeletal System - Lower Back / Lower Extremity using Other Equipment (ICD-10-PCS; 2018-01-29)
PROC: F08Z1FZ Dressing Techniques Treatment using Assistive, Adaptive, Supportive or Protective Equipment (ICD-10-PCS; 2018-01-29)
PROC: F08Z2ZZ Grooming/Personal Hygiene Treatment (ICD-10-PCS; 2018-01-29)
PROC: F08Z0ZZ Bathing/Showering Techniques Treatment (ICD-10-PCS; 2018-01-29)
DX: R26.9 Unspecified abnormalities of gait and mobility (principal); K51.90 Ulcerative colitis, unspecified, without complications; H46.9 Unspecified optic neuritis; R10.31 Right lower quadrant pain; E11.9 Type 2 diabetes mellitus without complications; I10 Essential (primary) hypertension; L40.50 Arthropathic psoriasis, unspecified; J44.9 Chronic obstructive pulmonary disease, unspecified; F41.9 Anxiety disorder, unspecified; K59.00 Constipation, unspecified; K44.9 Diaphragmatic hernia without obstruction or gangrene; N28.1 Cyst of kidney, acquired; K21.9 Gastro-esophageal reflux disease without esophagitis; F32.9 Major depressive disorder, single episode, unspecified; Z86.73 Personal history of transient ischemic attack (TIA), and cerebral infarction without residual deficits; Z79.84 Long term (current) use of oral hypoglycemic drugs

== ENCOUNTER 2018-02-03 15:10 | Day surgery (SDC) | payer MEDICARE ==
[2018-02-03] MEDS ORDERED: Sodium Chloride 0.9% 1,000 ML IV SCH (18:15)
[2018-02-03 18:46] VITALS: BP 131/58; PULSE 70; RESP 17; TEMP 97.9; O2SAT 98
== END 2018-02-03 19:14 | disposition home or self-care (01) ==
LOC: ENDO 15:10
PROVIDERS: ATTEND Internal Medicine Gastroenterology
DX: K51.90 Ulcerative colitis, unspecified, without complications (principal); K62.1 Rectal polyp; K64.4 Residual hemorrhoidal skin tags; K64.8 Other hemorrhoids; K21.9 Gastro-esophageal reflux disease without esophagitis; Z80.0 Family history of malignant neoplasm of digestive organs
CPT/HCPCS: 45380; J7030; J7040